=== PATIENT | female | born 1965 | race Caucasian/White ===

== ENCOUNTER 2017-02-08 01:16 | Emergency (ER) | payer SELFPAY ==
[2017-02-08 01:34] VITALS: BP 135/76
[2017-02-08] MEDS ORDERED: Alum Hydrox/Mag Hydrox/Simeth 30 ML, Lidocaine 2% 15 ML PO STA ×2 (01:47)
[2017-02-08] MEDS ORDERED: Sodium Chloride 0.9% 10 ML Syringe FLUSH PRN (01:49)
[2017-02-08] MEDS ORDERED: Pantoprazole 40 MG Tab.CR PO ONE (03:17)
[2017-02-08] MEDS ORDERED: Sucralfate Suspension 1 GM/10 ML Cup PO ONE (03:17)
--- NOTE | 2017-02-08 03:26 | EDM.PDOC ---
ED HPI GENERAL MEDICAL PROBLEM - General Chief Complaint: Chest Pain Stated Complaint: CHEST PAIN Time Seen by Provider: 02/08/17 01:21 - History of Present Illness INITIAL COMMENTS - FREE TEXT/NARRATIVE: 52-year-old female presents emergency room with chest pain. This pain has been on and off all of yesterday and into tonight patient went to bed and the pain awoke her. The pain is substernal does not seem to radiate is not associated with any nausea or vomiting no shortness of breath. Patient has been under quite a bit of stress recently. Family history is positive for heart problems in her father but patient is unsure of what age or what type of heart problems. The patient is treated for hypertension. She does not smoke and never has. Right Chest Pain Score (Numeric/FACES): 8 - Related Data Allergies Allergy/AdvReac Type Severity Reaction Status Date / Time acetaminophen Allergy Rash Verified 02/08/17 01:33 [From Darvocet-N] Penicillins Allergy Rash Verified 02/08/17 01:33 propoxyphene napsylate Allergy Rash Verified 02/08/17 01:33 [From Darvocet-N] Sulfa (Sulfonamide Allergy Rash Verified 02/08/17 01:33 Antibiotics) Home Meds: Home Meds Naproxen 500 mg PO ASDIRECTED PRN 04/15/14 [History] Lisinopril 10 mg PO DAILY 10/12/15 [History] Sucralfate [Carafate] 1 gm PO QIDACANDBED #20 tablet 02/08/17 [Rx] Past Medical History HEENT History: Reports: Impaired Vision Other HEENT History: Wears Cardiovascular History: Reports: Hypertension Respiratory History: Reports: Pneumonia, Recurrent 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: Musculoskeletal History: Reports: Back Pain, Chronic Neurological History: Reports: Migraines Psychiatric History: Reports: Depression - Past Surgical History GI Surgical History: Reports: Appendectomy Female Surgical History: Reports: Hysterectomy Social & Family History - Tobacco Use Smoking Status *Q: Never Smoker Second Hand Smoke Exposure: No - Caffeine Use Caffeine Use: Reports: Soda - Alcohol Use Days Per Week of Alcohol Use: 0 - Recreational Drug Use Recreational Drug Use: No ED ROS GENERAL - Review of Systems Review Of Systems: See Below Constitutional: Reports: No Symptoms HEENT: Reports: No Symptoms Respiratory: Denies: Shortness of Breath, Wheezing, Cough, Sputum Cardiovascular: Reports: Chest Pain. Denies: Dyspnea on Exertion, Palpitations Endocrine: Reports: No Symptoms GI/Abdominal: Reports: Abdominal Pain (She has some epigastric discomfort). Denies: Constipation, Diarrhea, Nausea, Vomiting : Reports: No Symptoms Neurological: Reports: No Symptoms ED EXAM, GENERAL - Physical Exam Exam: See Below Exam Limited By: No Limitations General Appearance: Alert, No Apparent Distress Head: Atraumatic, Normocephalic Neck: Normal Inspection, Supple, Non-Tender, Full Range of Motion. No: Lymphadenopathy (L), Lymphadenopathy (R) Respiratory/Chest: No Respiratory Distress, Lungs Clear, Normal Breath Sounds Cardiovascular: Regular Rate, Rhythm, No Edema, No Murmur GI/Abdominal: Normal Bowel Sounds, Soft, Other (History is significant epigastric discomfort no other upper abdominal tenderness noted with palpation no lower abdominal tenderness noted with palpation she has no rigidity rebound or guarding noted) Back Exam: Normal Inspection. No: CVA Tenderness (L), CVA Tenderness (R) Extremities: Normal Inspection, No Pedal Edema Course - Vital Signs Last Recorded V/S: Last Vital Signs Temp 36.1 C 02/08/17 01:30 Pulse 93 02/08/17 01:30 Resp 20 02/08/17 01:30 BP 135/76 02/08/17 01:30 Pulse Ox 99 02/08/17 01:30 - Orders/Labs/Meds Orders: Active Orders 24 hr Category Date Time Status Cardiac Monitoring [RC] . DIRECTED Care 02/08/17 01:47 Active EKG 12 Lead [EKG Documentation Completion] [RC] STAT Care 02/08/17 01:43 Active Oxygen Therapy [RC] ASDIRECTED Care 02/08/17 01:54 Active Sodium Chloride 0.9% [Saline Flush] Med 02/08/17 01:49 Active 10 ml FLUSH ASDIRECTED PRN Saline Lock Insert [OM.PC] Routine Oth 02/08/17 01:49 Ordered Medication Orders Sodium Chloride (Saline Flush) 10 ml FLUSH ASDIRECTED PRN PRN Reason: Keep Vein Open Last Admin: 02/08/17 02:00 Dose: 10 ml Labs: Laboratory Tests 02/08/17 02/08/17 02/08/17 Range/Units 01:25 01:25 01:25 WBC 7.42 (3.98-10.04) K/mm3 RBC 5.14 (3.98-5.22) M/mm3 Hgb 14.8 (11.2-15.7) gm/L Hct 44.0 (34.1-44.9) % MCV 85.6 (79.4-94.8) fl MCH 28.8 (25.6-32.2) pg MCHC 33.6 (32.2-35.5) g/dl RDW Std Deviation 41.4 (36.4-46.3) fL Plt Count 216 (182-369) K/mm3 MPV 11.9 (9.4-12.3) fl Neut % (Auto) 49.2 (34.0-71.1) % Lymph % (Auto) 39.5 (19.3-51.7) % [place] % (Auto) 8.9 (4.7-12.5) % Eos % (Auto) 1.9 (0.7-5.8) Baso % (Auto) 0.4 (0.1-1.2) % Neut # (Auto) 3.65 (1.56-6.13) K/mm3 Lymph # (Auto) 2.93 (1.18-3.74) K/mm3 [place] # (Auto) 0.66 H (0.24-0.36) K/mm3 Eos # (Auto) 0.14 (0.04-0.36) K/mm3 Baso # (Auto) 0.03 (0.01-0.08) K/mm3 PT 10.9 (8.0-13.0) SECONDS INR 1.00 Sodium (136-145) mEq/L Potassium (3.5-5.1) mEq/L Chloride (98-107) mEq/L Carbon Dioxide (21-32) mEq/L Anion Gap (5-15) BUN (7-18) mg/dL Creatinine (0.55-1.02) mg/dL Est Cr Clr Drug Dosing mL/min Estimated GFR (MDRD) (>60) mL/min BUN/Creatinine Ratio (14-18) Glucose (74-106) mg/dL Calcium (8.5-10.1) mg/dL Total Bilirubin (0.2-1.0) mg/dL AST (15-37) U/L ALT (14-59) U/L Alkaline Phosphatase (46-116) U/L Troponin I < 0.017 (0.00-0.056) ng/mL Total Protein (6.4-8.2) g/dl Albumin (3.4-5.0) g/dl Globulin gm/dL Albumin/Globulin Ratio (1-2) 02/08/17 Range/Units 01:25 WBC (3.98-10.04) K/mm3 RBC (3.98-5.22) M/mm3 Hgb (11.2-15.7) gm/L Hct (34.1-44.9) % MCV (79.4-94.8) fl MCH (25.6-32.2) pg MCHC (32.2-35.5) g/dl RDW Std Deviation (36.4-46.3) fL Plt Count (182-369) K/mm3 MPV (9.4-12.3) fl Neut % (Auto) (34.0-71.1) % Lymph % (Auto) (19.3-51.7) % [place] % (Auto) (4.7-12.5) % Eos % (Auto) (0.7-5.8) Baso % (Auto) (0.1-1.2) % Neut # (Auto) (1.56-6.13) K/mm3 Lymph # (Auto) (1.18-3.74) K/mm3 [place] # (Auto) (0.24-0.36) K/mm3 Eos # (Auto) (0.04-0.36) K/mm3 Baso # (Auto) (0.01-0.08) K/mm3 PT (8.0-13.0) SECONDS INR Sodium 144 (136-145) mEq/L Potassium 3.6 (3.5-5.1) mEq/L Chloride 109 H (98-107) mEq/L Carbon Dioxide 25 (21-32) mEq/L Anion Gap 13.6 (5-15) BUN 13 (7-18) mg/dL Creatinine 0.7 (0.55-1.02) mg/dL Est Cr Clr Drug Dosing 86.52 mL/min Estimated GFR (MDRD) > 60 (>60) mL/min BUN/Creatinine Ratio 18.6 H (14-18) Glucose 101 (74-106) mg/dL Calcium 9.2 (8.5-10.1) mg/dL Total Bilirubin 0.4 (0.2-1.0) mg/dL AST 11 L (15-37) U/L ALT 18 (14-59) U/L Alkaline Phosphatase 68 (46-116) U/L Troponin I (0.00-0.056) ng/mL Total Protein 8.2 (6.4-8.2) g/dl Albumin 4.2 (3.4-5.0) g/dl Globulin 4.0 gm/dL Albumin/Globulin Ratio 1.1 (1-2) Meds: Medications Generic Name Dose Route Start Last Admin Trade Name Freq PRN Reason Stop Dose Admin Sodium Chloride 10 ml 02/08/17 01:49 02/08/17 02:00 Saline Flush FLUSH 10 ml ASDIRECTED PRN Administration Keep Vein Open Discontinued Medications Generic Name Dose Route Start Last Admin Trade Name Freq PRN Reason Stop Dose Admin Al Hydroxide/Mg Hydroxide 30 0 ml 02/08/17 01:47 02/08/17 01:51 ml/ Lidocaine HCl 15 ml PO 02/08/17 01:48 45 ml ONETIME STA Administration Pantoprazole Sodium 40 mg 02/08/17 03:17 02/08/17 03:26 Protonix PO 02/08/17 03:18 40 mg ONETIME ONE Administration Sucralfate 1 gm 02/08/17 03:17 02/08/17 03:26 Carafate PO 02/08/17 03:18 1 gm ONETIME ONE Administration - Re-Assessments/Exams Free Text/Narrative Re-Assessment/Exam: 02/08/17 03:21 Laboratory evaluation thus far unremarkable including a negative troponin chemistries still pending. Offered further observation with a repeat troponin this is declined at this point the patient would really like to go home at this point. The patient did receive a GI cocktail shortly after initial examination and had good relief with this and eventually complete resolution of her discomfort. Patient will be discharged on Carafate and PPI therapy. Departure - Departure Time of Disposition: 03:22 Disposition: Home, Self-Care 01 Clinical Impression: Chest pain, Gastroesophageal reflux disease Prescriptions: Sucralfate [Carafate] 1 gm PO RADHADACANDBED #20 tablet Instructions: Nonspecific Chest Pain, [id number], Gastroesophageal Reflux Disease, Adult, [id number] Referrals: Priya Nunez DO [Primary Care Provider] - Forms: ED Department Discharge Additional Instructions: Return to the emergency room with any questions or problems. You have been started on Carafate you will take this for 5 days one tablet 4 times daily just before breakfast lunch and supper and at bedtime. Take your other medications at least an hour before or 2 hours after the Carafate. Try Pepcid, or famotidine, 20 mg twice a day. This is [id number]. Followup with your regular physician later this week for recheck. - My Orders Last 24 Hours: My Active Orders 02/08/17 01:43 EKG 12 Lead [EKG Documentation Completion] [RC] STAT 02/08/17 01:47 Cardiac Monitoring [RC] . DIRECTED 02/08/17 01:49 Sodium Chloride 0.9% [Saline Flush] 10 ml FLUSH ASDIRECTED PRN Saline Lock Insert [OM.PC] Routine 02/08/17 01:54 Oxygen Therapy [RC] ASDIRECTED - Assessment/Plan Last 24 Hours: My Active Orders 02/08/17 01:43 EKG 12 Lead [EKG Documentation Completion] [RC] STAT 02/08/17 01:47 Cardiac Monitoring [RC] . DIRECTED 02/08/17 01:49 Sodium Chloride 0.9% [Saline Flush] 10 ml FLUSH ASDIRECTED PRN Saline Lock Insert [OM.PC] Routine 02/08/17 01:54 Oxygen Therapy [RC] ASDIRECTED
== END 2017-02-08 03:38 | disposition home or self-care (01) ==
LOC: JD.ED 01:16
DX: K21.9 Gastro-esophageal reflux disease without esophagitis (principal); I10 Essential (primary) hypertension; G43.909 Migraine, unspecified, not intractable, without status migrainosus; F32.9 Major depressive disorder, single episode, unspecified; Z90.49 Acquired absence of other specified parts of digestive tract; Z90.710 Acquired absence of both cervix and uterus; Z79.899 Other long term (current) drug therapy; Z88.0 Allergy status to penicillin; Z88.2 Allergy status to sulfonamides; Z88.6 Allergy status to analgesic agent; Z88.8 Allergy status to other drugs, medicaments and biological substances; Z87.01 Personal history of pneumonia (recurrent)
CPT/HCPCS: 36415; 80053; 84484; 85025; 85610; 93005; 99285; A9270; J7050; 99284

== ENCOUNTER 2017-02-08 08:43 | Emergency (ER) | payer SELFPAY ==
--- NOTE | 2017-02-08 08:57 | EDM.PDOC ---
ED HPI GENERAL MEDICAL PROBLEM - General Chief Complaint: Chest Pain Stated Complaint: CHEST PAIN Time Seen by Provider: 02/08/17 08:56 Source of Information: Reports: Patient History Limitations: Reports: No Limitations - History of Present Illness INITIAL COMMENTS - FREE TEXT/NARRATIVE: 52-year-old female presents to the ED with a central chest pain radiating through to her intrscapular her scapular area. Also epigastric discomfort. No she woke from sleep at around 0100 hours this morning he did attend the ED where she had a complete workup including a negative cardiac workup. I suggested that perhaps she states her second set of troponins but she elected to go home. She did receive good results with GI cocktail according to doctor's notes the patient says she did not. She has not been able to sleep since going home. Congestive pressure in the central retrosternal chest. No trouble swallowing. No nausea or vomiting. Not really prone to GERD or reflux disease. No burping or belching to relieve the distress. She's not taking any other medications since going home. She is tearful and I UPSET at the present time. I think she strongly she has coronary disease. ECG done diet by triage nurse a sinus rhythm at 93 per minute with perhaps very minimal ST segment depression in V6 only. This appears to be baseline wandering. No signs of ischemia are evident. No she was discharged home on proton pump inhibitor from Prilosec 20 mg daily and sucralfate 1 g 4 times a day. She is not purchase these medications at Onset: Today Onset Date: 02/08/17 Onset Time: 01:00 Duration: Minutes: Location: Reports: Chest (Retrosternal mid chest and lower chest in the pit of the stomach. Pain radiates through to her in intrascapular area.) Quality: Reports: Ache, Burning, Pressure Severity: Moderate Improves with: Reports: None Worsens with: Reports: Other Context: Reports: Other (Awoke from sleep with this discomfort. Of note she had pizza before going to bed last night.). Denies: Activity (Lying down seems to make it worse.), Exercise, Lifting, Sick Contact, Trauma Associated Symptoms: Reports: Chest Pain. 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: Other (see below) Other Treatments HIDE SPREADER: none, but see prior ED record Chest Pain Score (Numeric/FACES): 10 - Related Data Allergies Allergy/AdvReac Type Severity Reaction Status Date / Time acetaminophen Allergy Rash Verified 02/08/17 08:46 [From Darvocet-N] Penicillins Allergy Rash Verified 02/08/17 08:46 propoxyphene napsylate Allergy Rash Verified 02/08/17 08:46 [From Darvocet-N] Sulfa (Sulfonamide Allergy Rash Verified 02/08/17 08:46 Antibiotics) Home Meds: Home Meds Naproxen 500 mg PO ASDIRECTED PRN 04/15/14 [History] Lisinopril 10 mg PO DAILY 10/12/15 [History] Dicyclomine [Bentyl] 20 mg PO Q6H PRN #5 tab 02/08/17 [Rx] Sucralfate [Carafate] 1 gm PO QIDACANDBED #20 tablet 02/08/17 [Rx] Past Medical History HEENT History: Reports: Impaired Vision Other HEENT History: Wears Cardiovascular History: Reports: Hypertension Respiratory History: Reports: Pneumonia, 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: Musculoskeletal History: Reports: Back Pain, Chronic Neurological History: Reports: Migraines Psychiatric History: Reports: Depression - Past Surgical History GI Surgical History: Reports: Appendectomy Female Surgical History: Reports: Hysterectomy Social & Family History - Tobacco Use Smoking Status *Q: Never Smoker Second Hand Smoke Exposure: No - Caffeine Use Caffeine Use: Reports: Soda - Alcohol Use Days Per Week of Alcohol Use: 0 - Recreational Drug Use Recreational Drug Use: No - Living Situation & Occupation Living situation: Reports: Single Occupation: Employed ED ROS GENERAL - Review of Systems Review Of Systems: See Below Constitutional: Reports: Fatigue. Denies: Fever, Chills, Malaise, Weakness HEENT: Reports: No Symptoms (From not sleeping all night.) Respiratory: Reports: No Symptoms. Denies: Shortness of Breath, Wheezing, Pleuritic Chest Pain, Cough, Hemoptysis, Other Cardiovascular: Reports: Chest Pain. Denies: Blood Pressure Problem (See history present illness), Claudication, Dyspnea on Exertion, Edema, Lightheadedness, Orthopnea, Palpitations Endocrine: Reports: No Symptoms GI/Abdominal: Reports: Abdominal Pain (Bit of the stomach epigastric discomfort. ). Denies: Constipation, Diarrhea, Decreased Appetite, Difficulty Swallowing : Reports: No Symptoms Musculoskeletal: Reports: No Symptoms Skin: Reports: No Symptoms Neurological: Reports: No Symptoms Psychiatric: Reports: No Symptoms Hematologic/Lymphatic: Reports: No Symptoms Immunologic: Reports: No Symptoms ED EXAM, GENERAL - Physical Exam Exam: See Below Exam Limited By: No Limitations General Appearance: Alert, Moderate Distress (Be careful at this time.) Eye Exam: Bilateral Eye: Normal Inspection (No jaundice) Throat/Mouth: Normal Inspection, Normal Lips, Normal Teeth, Normal Oropharynx Head: Atraumatic, Normocephalic Neck: Normal Inspection, Supple, Non-Tender, Full Range of Motion. No: Carotid Bruit, Lymphadenopathy (L), Lymphadenopathy (R), Thyromegaly Respiratory/Chest: Lungs Clear, Normal Breath Sounds (Mild tachypnea close to being anxious.), No Accessory Muscle Use, Chest Non-Tender, Respiratory Distress Cardiovascular: Normal Peripheral Pulses, Regular Rate, Rhythm, No Edema, No Gallop, No Murmur, No Rub Peripheral Pulses: 2+: Posterior Tibial (L), Posterior Tibial (R), Dorsalis Pedis (L), Dorsalis Pedis (R) GI/Abdominal: Normal Bowel Sounds, Soft, Non-Tender, No Organomegaly, No Distention, Other Back Exam: Normal Inspection, Full Range of Motion. No: CVA Tenderness (L), CVA Tenderness (R) Extremities: Normal Inspection, Normal Range of Motion, Non-Tender, No Pedal Edema, Normal Capillary Refill Neurological: Alert, Oriented, CN II-XII Intact, Normal Cognition, Normal Gait, No Motor/Sensory Deficits Psychiatric: Anxious, Tearful Skin Exam: Warm, Dry, Intact, Normal Color, No Rash EKG INTERPRETATION EKG Date: 02/08/17 Time: 08:45 Rhythm: NSR Rate (beats/min): 93 [place]: normal P-wave: present QRS: normal ST-T: normal QT: normal Comparison: no change Course - Vital Signs Last Recorded V/S: Last Vital Signs Temp 36.6 C 02/08/17 08:47 Pulse 87 02/08/17 11:04 Resp 16 02/08/17 11:04 BP 109/71 02/08/17 11:04 Pulse Ox 100 02/08/17 11:04 - Orders/Labs/Meds Orders: Active Orders 24 hr Category Date Time Status EKG 12 Lead [EKG Documentation Completion] [RC] STAT Care 02/08/17 08:54 Active Labs: Laboratory Tests 02/08/17 02/08/17 02/08/17 Range/Units 08:50 08:50 08:50 WBC 7.45 (3.98-10.04) K/mm3 RBC 5.26 H (3.98-5.22) M/mm3 Hgb 15.1 (11.2-15.7) gm/L Hct 45.1 H (34.1-44.9) % MCV 85.7 (79.4-94.8) fl MCH 28.7 (25.6-32.2) pg MCHC 33.5 (32.2-35.5) g/dl RDW Std Deviation 41.6 (36.4-46.3) fL Plt Count 222 (182-369) K/mm3 MPV 12.2 (9.4-12.3) fl Neutrophils % (Manual) 56 (40-60) % Band Neutrophils % 2 (0-10) % Lymphocytes % (Manual) 34 (20-40) % Atypical Lymphs % 0 % Monocytes % (Manual) 7 (2-10) % Eosinophils % (Manual) 1 (0.7-5.8) % Basophils % (Manual) 0 L (0.1-1.2) Platelet Estimate Adequate RBC Morph Comment Normal Sodium 144 (136-145) mEq/L Potassium 3.7 (3.5-5.1) mEq/L Chloride 109 H (98-107) mEq/L Carbon Dioxide 25 (21-32) mEq/L Anion Gap 13.7 (5-15) BUN 13 (7-18) mg/dL Creatinine 0.7 (0.55-1.02) mg/dL Est Cr Clr Drug Dosing TNP Estimated GFR (MDRD) > 60 (>60) mL/min BUN/Creatinine Ratio 18.6 H (14-18) Glucose 102 (74-106) mg/dL Calcium 9.4 (8.5-10.1) mg/dL Total Bilirubin 0.9 (0.2-1.0) mg/dL AST 10 L (15-37) U/L ALT 18 (14-59) U/L Alkaline Phosphatase 67 (46-116) U/L CK-MB (CK-2) < 0.5 (0-3.6) ng/ml Troponin I < 0.017 (0.00-0.056) ng/mL Total Protein 8.2 (6.4-8.2) g/dl Albumin 4.3 (3.4-5.0) g/dl Globulin 3.9 gm/dL Albumin/Globulin Ratio 1.1 (1-2) Amylase 25 (25-115) U/L H. pylori IgG Antibody Negative (NEGATIVE) Meds: Medications Discontinued Medications Generic Name Dose Route Start Last Admin Trade Name Freq PRN Reason Stop Dose Admin Al Hydroxide/Mg Hydroxide 30 0 ml 02/08/17 09:03 02/08/17 09:18 ml/ Lidocaine HCl 15 ml PO 02/08/17 09:04 45 ml ONETIME ONE Administration Hydromorphone HCl 0.5 mg 02/08/17 09:02 02/08/17 09:20 Dilaudid IVPUSH 02/08/17 09:03 0.5 mg ONETIME ONE Administration Hyoscyamine 0.125 mg 02/08/17 09:04 02/08/17 09:18 Hyomax-Sl SL 02/08/17 09:05 0.125 mg ONETIME ONE Administration Dextrose/Sodium Chloride 1,000 mls @ 999 mls/hr 02/08/17 09:15 02/08/17 09:24 Dextrose 5%-Normal Saline IV 999 mls/hr ASDIRECTED LADONNA Administration Metoclopramide HCl 7.5 mg 02/08/17 09:02 02/08/17 09:19 Reglan IVPUSH 02/08/17 09:03 7.5 mg ONETIME ONE Administration - Radiology Interpretation Free Text/Narrative:: 52-year-old female presents to the ED for the second time this morning with persistent epigastric retrosternal chest pain radiate through to her mid back. No true odynophagia. She was worked up earlier this morning for cardiac illness and none was found. Normal troponin at that time. She is a family history of coronary disease and quite anxious that this is what is going on. ECG however shows no signs of ischemia. Lungs are clear heart was sinus. Pain is most likely that of esophageal or hiatal hernia origin. We'll get repeat the GI cocktail with Levsin is 0.125 mg sublingual. IV will be D5 normal saline at 150 mils per hour. Given Dilaudid 0.5 mg IV with Reglan 7.5 mg IV for pain relief. - Re-Assessments/Exams Free Text/Narrative Re-Assessment/Exam: 02/08/17 09:35: Two-view chest x-ray is within normal limits. She reports marked relief of the chest pain after the GI cocktail and the eye and IV analgesia. 02/08/17 10:34 labs are back showing a white count of 7.45 with 56% neutrophils and 2% band cells. Hemoglobin is 15.1 hematocrit of 45.1. Platelets are normal at 222,000. Sodium is 144 potassium is 3.7 chloride 109 bicarbonate 25 anion gap is 13.7 H. pylori was negative. Troponin and CK-MB fractions are both normal. Serum amylase is normal at 25. History suggests gastroesophageal reflux disease possible hiatal hernia. We'll send her home with Bentyl 20 mg every 6 hours for 5 doses. She is to use antacids as needed such as Maalox Mylanta or TUMS. She could certainly fill the prescription for sucralfate as Dr. Green had ordered. Start proton pump inhibitor Prilosec once daily for the next 12 days. He uses Zantac 150 mg twice daily for the next 3 days until the pain settles down completely. Was pain-free at the time of discharge. Departure - Departure Time of Disposition: 10:35 Disposition: Home, Self-Care 01 Condition: fair Clinical Impression: Non-cardiac chest pain, Gastroesophageal reflux disease with esophagitis Prescriptions: Dicyclomine [Bentyl] 20 mg PO Q6H PRN #5 tab PRN Reason: esophageal spasm Instructions: Nonspecific Chest Pain Referrals: Priya Nunez DO [Primary Care Provider] - Forms: ED Department Discharge Additional Instructions: Evaluation and mentioned this morning in regards to development of central chest pain rating to slightly to her mid back. Strong burning component to the pain. Concern for underlying heart disease noted. ECG normal chest x-ray x2 view normal markers for infection and inflammation and heart attack were all negative. H. pylori was also negative which is a bacterial infection of the stomach that can cause reflux disease. Diagnosis is esophagitis likely secondary to reflux during the night. This has resulted in inflammation of the lining the food pipe and will cause intermittent spasm of the food pipe and pain off-and-on for the next 3-4 days. Suggest using Zantac 150 mg twice daily for 5 days and also start to Prilosec 20 mg once daily for the next 10 days. May also use the sucralfate or antacids such as Maalox or Mylanta as needed for discomfort. if the pain is significantly did was when you arrive this morning may use Bentyl 20 mg tablet by mouth which can be taken every 6 hours. 5 tablets of this medicine were provided. Followup if any further problems occur. - My Orders Last 24 Hours: My Active Orders 02/08/17 08:54 EKG 12 Lead [EKG Documentation Completion] [RC] STAT - Assessment/Plan Last 24 Hours: My Active Orders 02/08/17 08:54 EKG 12 Lead [EKG Documentation Completion] [RC] STAT
[2017-02-08] MEDS ORDERED: HYDROmorphone 0.5 MG/0.5 ML Syringe IVPUSH ONE (09:02)
[2017-02-08] MEDS ORDERED: Metoclopramide 10 MG/2 ML SDV IVPUSH ONE (09:02)
[2017-02-08] MEDS ORDERED: Alum Hydrox/Mag Hydrox/Simeth 30 ML, Lidocaine 2% 15 ML PO ONE ×2 (09:03)
[2017-02-08] MEDS ORDERED: Hyoscyamine 0.125 MG Tab.SL SL ONE (09:04)
[2017-02-08] MEDS ORDERED: Dextrose 5%-0.9% NaCl 1,000 ML IV SCH (09:15)
[2017-02-08 11:05] VITALS: BP 109/71
--- NOTE | 2017-02-08 12:03 | CR ---
Chest: Two views of the chest were obtained. Comparison: No previous chest x-ray. Heart size and mediastinum are normal. Lungs are clear. Bony structures are within normal limits. Impression: 1. Nothing acute is identified on two-view chest x-ray. Diagnostic code #1
== END 2017-02-08 11:12 | disposition home or self-care (01) ==
LOC: JD.ED 08:43
DX: K21.0 Gastro-esophageal reflux disease with esophagitis (principal); I10 Essential (primary) hypertension; G43.909 Migraine, unspecified, not intractable, without status migrainosus; F32.9 Major depressive disorder, single episode, unspecified; Z90.49 Acquired absence of other specified parts of digestive tract; Z90.710 Acquired absence of both cervix and uterus; Z79.899 Other long term (current) drug therapy; Z88.2 Allergy status to sulfonamides; Z88.8 Allergy status to other drugs, medicaments and biological substances; Z88.0 Allergy status to penicillin; Z88.6 Allergy status to analgesic agent
CPT/HCPCS: 36415; 71020; 80053; 82150; 82553; 84484; 85025; 86677; 93005; 96361; 96374; 96375; 99285; A9270; J1170; J2765; J7042

== ENCOUNTER 2017-07-16 17:03 | Emergency (ER) | payer MEDICAID ==
[2017-07-16 17:28] VITALS: BP 137/82
[2017-07-16] MEDS ORDERED: Ketorolac 60 MG/2 ML SDV IM ONE (17:56)
--- NOTE | 2017-07-16 18:04 | EDM.PDOC ---
ED HPI GENERAL MEDICAL PROBLEM - General Chief Complaint: Back Pain or Injury Stated Complaint: Back pain Time Seen by Provider: 07/16/17 17:40 Source of Information: Reports: Patient, RN Notes Reviewed History Limitations: Reports: No Limitations - History of Present Illness INITIAL COMMENTS - FREE TEXT/NARRATIVE: 52 year old female presents to the ER today with complaints of 24 hour history of low back pain with radiation down her left leg. 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 She has a history of low back pain but says it was much worse last evening. The pain is across her low back and is worse on the left side. She says the pain is so severe that she can "hardly walk." She ambulated into the ED. 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 No numbness, tingling or weakness in extremities. No loss of bowel or bladder function. She admits to foul smelling urine but denies dysuria, frequency or urgency. Treatments APARTMENT HOUSE MANAGER: Reports: Other (see below) Other Treatments APARTMENT HOUSE MANAGER: Icing Left Lower Back Pain Score (Numeric/FACES): 10 - Related Data Allergies Allergy/AdvReac Type Severity Reaction Status Date / Time acetaminophen Allergy Rash Verified 02/08/17 08:46 [From Darvocet-N] Penicillins Allergy Rash Verified 02/08/17 08:46 propoxyphene napsylate Allergy Rash Verified 02/08/17 08:46 [From Darvocet-N] Sulfa (Sulfonamide Allergy Rash Verified 02/08/17 08:46 Antibiotics) Home Meds: Home Meds Naproxen 500 mg PO ASDIRECTED PRN 04/15/14 [History] Lisinopril 10 mg PO DAILY 10/12/15 [History] Ciprofloxacin [IJD: Ciprofloxacin HCl] 500 mg PO BID #10 tab 07/16/17 [Rx] Naproxen 500 mg PO BID #30 tablet 07/16/17 [Rx] Orphenadrine [Norflex] 100 mg PO BID #15 tab.er 07/16/17 [Rx] Past Medical History HEENT History: Reports: Impaired Vision Other HEENT History: Wears Cardiovascular History: Reports: Hypertension Respiratory History: Reports: Pneumonia, Recurrent 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: Musculoskeletal History: Reports: Back Pain, Chronic Neurological History: Reports: Migraines Psychiatric History: Reports: Depression - Past Surgical History GI Surgical History: Reports: Appendectomy Female Surgical History: Reports: Hysterectomy Social & Family History - Tobacco Use Smoking Status *Q: Never Smoker Second Hand Smoke Exposure: No - Caffeine Use Caffeine Use: Reports: Soda - Alcohol Use Days Per Week of Alcohol Use: 0 - Recreational Drug Use Recreational Drug Use: No - Living Situation & Occupation Living situation: Reports: Single Occupation: Employed ED ROS GENERAL - Review of Systems Review Of Systems: See Below Constitutional: Reports: No Symptoms. Denies: Fever, Chills Respiratory: Reports: No Symptoms Cardiovascular: Reports: No Symptoms : Reports: Other (foul urine odor). Denies: Dysuria, Flank Pain, Frequency Musculoskeletal: Reports: Back Pain, Muscle Pain Skin: Reports: No Symptoms Neurological: Reports: No Symptoms. Denies: Numbness, Tingling, Weakness ED EXAM,LOWER BACK PAIN/INJURY - Physical Exam Exam: See Below Exam Limited By: No Limitations General Appearance: Alert, WD/WN, No Apparent Distress Respiratory/Chest: No Respiratory Distress, Lungs Clear, Normal Breath Sounds Cardiovascular: Regular Rate, Rhythm Back Exam: Normal Inspection, Full Range of Motion, Muscle Spasm (low back ), Other (Patient is able to sit forward in bed with no difficulty. She has exagerated pain response to light palpation of her back. She has pain over her left SI joint. She has some mild muscle spasms. ). No: CVA Tenderness (L), CVA Tenderness (R), Vertebral Tenderness Extremities: Normal Inspection, Normal Range of Motion Neurological: Alert, Normal Dorsiflexion, Normal Plantar Flexion, No Motor/ Sensory Deficits, Straight Leg Raise (L). No: Straight Leg Raise (R), Saddle Anesthesia Skin Exam: Warm, Dry, Intact Course - Vital Signs Last Recorded V/S: Last Vital Signs Temp 98.0 F 07/16/17 17:26 Pulse 98 07/16/17 17:26 Resp 21 H 07/16/17 17:26 BP 137/82 07/16/17 17:26 Pulse Ox 97 07/16/17 17:26 - Orders/Labs/Meds Labs: Laboratory Tests 07/16/17 Range/Units 18:21 Urine Color Light yellow (Yellow) Urine Appearance Slt cloudy H (Clear) Urine pH 7.0 (5.0-8.0) Ur Specific [place] 1.025 (1.005-1.030) Urine Protein Negative (Negative) Urine Glucose (UA) Negative (Negative) Urine Ketones Negative (Negative) Urine Occult Blood 1+ H (Negative) Urine Nitrite Positive H (Negative) Urine Bilirubin Negative (Negative) Urine Urobilinogen 0.2 (0.2-1.0) Ur Leukocyte Esterase Negative (Negative) Urine RBC 0-5 (0-5) /hpf Urine WBC 10-20 H (0-5) /hpf Ur Epithelial Cells 5-10 H (0-5) /hpf Urine Bacteria Many H (FEW) /hpf Urine Mucus Not seen (FEW) /hpf Meds: Medications Discontinued Medications Generic Name Dose Route Start Last Admin Trade Name Freq PRN Reason Stop Dose Admin Ketorolac Tromethamine 60 mg 07/16/17 17:56 07/16/17 18:10 Toradol IM 07/16/17 17:57 60 mg ONETIME ONE Administration - Re-Assessments/Exams Free Text/Narrative Re-Assessment/Exam: Low back exam consistent with sciatica. Toradol 60mg IM given for pain. Patient had significant improvement in pain. UA came back positive for infection. Sent for culture. Due to complaints of back pain, will treat with 5 days of Cipro for possible early pyelonephritis. Patient notified of results of UA. Will treat for both sciatica, low back strain , and UTI. Discharge instructions as documented. Departure - Departure Time of Disposition: 18:42 Disposition: Home, Self-Care 01 Condition: Good Clinical Impression: Muscle spasm of back UTI (urinary tract infection) Qualifiers: Urinary tract infection type: acute cystitis Hematuria presence: without hematuria Qualified Code(s): N30.00 - Acute cystitis without hematuria Low back strain Qualifiers: Encounter type: initial encounter Qualified Code(s): S39.012A - Strain of muscle, fascia and tendon of lower back, initial encounter Lumbago with sciatica, left side Qualifiers: Chronicity: unspecified Back pain laterality: left Qualified Code(s): M54.42 - Lumbago with sciatica, left side - Discharge Information Prescriptions: Ciprofloxacin [IJD: Ciprofloxacin HCl] 500 mg PO BID #10 tab Naproxen 500 mg PO BID #30 tablet Orphenadrine [Norflex] 100 mg PO BID #15 tab.er Instructions: Urinary Tract Infection, Adult, [id number] Referrals: Priya Nunez, DO [Primary Care Provider] - Forms: ED Department Discharge, ED Return to Work/School Form Additional Instructions: Low back strain 1. Rest and ice low back 2. Heating pad for muscle spasms 3. Avoid heavy lifting or prolonged bending until symptoms improve 4. Naproxyn 500mg twice a day until symptoms resolve then take as needed 5. Orphandrine every 12 hours as needed for muscle spasm 6. Tylenol 650mg every 4-6 hours as needed for pain not relieved by above medications Bladder infection 1. Drink plenty of fluids to stay well hydrated 2. Ciprofloxacin 500mg twice a day for 5 days 3. Follow-up with your primary care provider next week for recheck Return to ER with new or worsening symptoms
== END 2017-07-16 19:16 | disposition home or self-care (01) ==
LOC: JD.ED 17:03
DX: S39.012A Strain of muscle, fascia and tendon of lower back, initial encounter (principal); M54.42 Lumbago with sciatica, left side; N30.00 Acute cystitis without hematuria; M62.830 Muscle spasm of back; Z79.899 Other long term (current) drug therapy; Z88.0 Allergy status to penicillin; Z88.2 Allergy status to sulfonamides; Z88.6 Allergy status to analgesic agent; X50.0XXA Overexertion from strenuous movement or load, initial encounter
CPT/HCPCS: 81001; 96372; 99283; J1885

== ENCOUNTER 2017-07-25 11:55 | Emergency (ER) | payer MEDICAID ==
[2017-07-25 12:09] VITALS: BP 123/77
[2017-07-25] MEDS ORDERED: Ondansetron 4 MG Tab.DIS PO ONE (12:29)
[2017-07-25] MEDS ORDERED: Ketorolac 60 MG/2 ML SDV IM ONE (12:29)
[2017-07-25] MEDS ORDERED: diphenhydrAMINE 50 MG/ML SDV IM ONE (12:30)
[2017-07-25] MEDS ORDERED: Haloperidol Lactate 5 MG/ML SDV IM ONE (12:30)
--- NOTE | 2017-07-25 12:35 | EDM.PDOC ---
ED HPI GENERAL MEDICAL PROBLEM - General Chief Complaint: Headache Stated Complaint: MIGRAIN Time Seen by Provider: 07/25/17 12:17 Source of Information: Reports: Patient History Limitations: Reports: No Limitations - History of Present Illness INITIAL COMMENTS - FREE TEXT/NARRATIVE: Patient is a 52-year-old female who presents to the ED complaining of migraine headache for the past 5 days. Headache gradually started with increasing in severity. States initially started on left-sided of her forehead and has not radiated to the right. Described as a throbbing sharp sensation that waxes and wanes in intensity. Headache is constant mild in nature currently. She does report some photophobia, phonophobia, and intermittent nausea. Headache today following similar pattern from previous episodes. Denies any recent trauma, fever, vision changes, neck stiffness, chest pain, shortness of breath, nausea/ vomiting, abdominal pain, numbness or tingling to extremities, rash, or any additional complaints. She does report being under more stress recently. 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 Right Headache Pain Score (Numeric/FACES): 10 - Related Data Allergies Allergy/AdvReac Type Severity Reaction Status Date / Time acetaminophen Allergy Rash Verified 07/25/17 12:03 [From Darvocet-N] Penicillins Allergy Rash Verified 07/25/17 12:03 propoxyphene napsylate Allergy Rash Verified 07/25/17 12:03 [From Darvocet-N] Sulfa (Sulfonamide Allergy Rash Verified 07/25/17 12:03 Antibiotics) Home Meds: Home Meds Lisinopril 10 mg PO DAILY 10/12/15 [History] Naproxen 500 mg PO BID #30 tablet 07/16/17 [Rx] Past Medical History HEENT History: Reports: Impaired Vision Other HEENT History: Wears Cardiovascular History: Reports: Hypertension Respiratory History: Reports: Pneumonia, Recurrent 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: Musculoskeletal History: Reports: Back Pain, Chronic Neurological History: Reports: Migraines Psychiatric History: Reports: Depression - Past Surgical History GI Surgical History: Reports: Appendectomy Female Surgical History: Reports: Hysterectomy Social & Family History - Family History Family Medical History: Noncontributory - Tobacco Use Smoking Status *Q: Never Smoker Second Hand Smoke Exposure: No - Caffeine Use Caffeine Use: Reports: Soda - Alcohol Use Days Per Week of Alcohol Use: 0 - Recreational Drug Use Recreational Drug Use: No - Living Situation & Occupation Living situation: Reports: Single Occupation: Employed ED ROS GENERAL - Review of Systems Review Of Systems: ROS reveals no pertinent complaints other than HPI. - Physical Exam Exam: See Below Exam Limited By: No Limitations General Appearance: Alert, WD/WN, No Apparent Distress Eye Exam: Bilateral Eye: EOMI, PERRL Ears: Hearing Grossly Normal Nose: Normal Inspection Throat/Mouth: Normal Inspection, Normal Oropharynx, Normal Voice, No Airway Compromise Head Exam: Atraumatic, Normocephalic Neck: Normal Inspection, Supple, Non-Tender, Full Range of Motion Respiratory/Chest: No Respiratory Distress, Lungs Clear, Normal Breath Sounds, No Accessory Muscle Use, Chest Non-Tender Cardiovascular: Normal Peripheral Pulses, Regular Rate, Rhythm GI/Abdominal: Normal Bowel Sounds, Soft, Non-Tender, No Organomegaly, No Distention Neuro Exam (Abbreviated): Alert, Oriented, CN II-XII Intact, Normal Cognition, Normal Gait, No Motor/Sensory Deficits, Other (Cerebellar function intact: Finger-nose and rapid alternating movements. No weakness discrepancies to the upper and lower extremities. No sensorimotor deficits.) Extremities: Normal Inspection, Normal Range of Motion, Non-Tender, No Pedal Edema, Normal Capillary Refill Psychiatric: Normal Affect, Normal Mood Skin Exam: Warm, Dry, Intact, Normal Color Course - Vital Signs Last Recorded V/S: Last Vital Signs Temp 97.7 F 07/25/17 12:05 Pulse 74 07/25/17 12:05 Resp 14 07/25/17 12:05 BP 123/77 07/25/17 12:05 Pulse Ox 100 07/25/17 12:05 - Orders/Labs/Meds Meds: Medications Discontinued Medications Generic Name Dose Route Start Last Admin Trade Name Freq PRN Reason Stop Dose Admin Diphenhydramine HCl 50 mg 07/25/17 12:30 07/25/17 12:40 Benadryl IM 07/25/17 12:31 50 mg ONETIME ONE Administration Haloperidol Lactate 5 mg 07/25/17 12:30 07/25/17 12:42 Haldol IM 07/25/17 12:31 5 mg ONETIME ONE Administration Ketorolac Tromethamine 30 mg 07/25/17 12:29 07/25/17 12:46 Toradol IM 07/25/17 12:30 30 mg ONETIME ONE Administration Ondansetron HCl 4 mg 07/25/17 12:29 07/25/17 12:39 Zofran Odt PO 07/25/17 12:30 4 mg ONETIME ONE Administration - Re-Assessments/Exams Free Text/Narrative Re-Assessment/Exam: Ordered Haldol 5 mg IM, Toradol 30 mg IM, Zofran 4 mg by mouth, and Benadryl 50 mg IM. 07/25/17 13:17 Reassessment, headache has resolved. She is ready to be discharged home. Discharge instructions as documented. Departure - Departure Time of Disposition: 13:18 Disposition: Home, Self-Care 01 Condition: Good Clinical Impression: Headache Qualifiers: Headache type: unspecified Headache chronicity pattern: episodic headache Intractability: not intractable Qualified Code(s): R51 - Headache - Discharge Information Instructions: General Headache Without Cause Referrals: Priya Nunez, [Primary Care Provider] - Forms: ED Department Discharge, ED Return to Work/School Form Additional Instructions: As discussed go Home find a dark room with no distractions to sleep. Continue to push the fluids. Take ibuprofen 600 mg every 6 hours as needed for headache. Take with food. Follow-up with her PCP this coming week as needed. Return to the ED for any new or worsening symptoms.
== END 2017-07-25 13:50 | disposition home or self-care (01) ==
LOC: JD.ED 11:55
DX: R51 Headache (principal); I10 Essential (primary) hypertension; Z88.6 Allergy status to analgesic agent; Z88.0 Allergy status to penicillin; Z88.2 Allergy status to sulfonamides; Z79.899 Other long term (current) drug therapy
CPT/HCPCS: 96372; 99284; A9270; J1200; J1630; J1885

== ENCOUNTER 2017-09-05 13:46 | Emergency (ER) | payer MEDICAID, OTHER ==
[2017-09-05 14:29] VITALS: BP 130/85
[2017-09-05] MEDS ORDERED: Sodium Chloride 0.9% 10 ML Syringe FLUSH PRN (14:50)
[2017-09-05] MEDS ORDERED: diphenhydrAMINE 50 MG/ML SDV IVPUSH ONE (14:51)
[2017-09-05] MEDS ORDERED: Ketorolac 30 MG/ML SDV IVPUSH ONE (14:51)
[2017-09-05] MEDS ORDERED: Prochlorperazine 10 MG/2 ML SDV IVPUSH ONE (14:51)
[2017-09-05] MEDS ORDERED: Sodium Chloride 0.9% 1,000 ML IV SCH (15:00)
--- NOTE | 2017-09-05 16:46 | EDM.PDOC ---
ED HPI GENERAL MEDICAL PROBLEM - General Chief Complaint: Gastrointestinal Problem Stated Complaint: BODY ACHES Time Seen by Provider: 09/05/17 14:33 Source of Information: Reports: Patient, Family History Limitations: Reports: No Limitations - History of Present Illness INITIAL COMMENTS - FREE TEXT/NARRATIVE: The patient presents with a headache, abdominal pain, nausea and vomiting. This started last night. She has a history of migraines. She denies fever, chills, cough, chest pain, numbness or weakness. She has no diarrhea with the abdominal pain. She has no dysuria. Onset: Gradual Duration: Day(s): Location: Reports: Head, Abdomen Quality: Reports: Sharp Severity: Severe Improves with: Reports: None Worsens with: Reports: None Associated Symptoms: Reports: Headaches, Nausea/Vomiting. Denies: Chest Pain, Fever/Chills, Shortness of Breath Head Pain Score (Numeric/FACES): 10 - Related Data Allergies Allergy/AdvReac Type Severity Reaction Status Date / Time acetaminophen Allergy Rash Verified 09/05/17 14:25 [From Darvocet-N] Penicillins Allergy Rash Verified 09/05/17 14:25 propoxyphene napsylate Allergy Rash Verified 09/05/17 14:25 [From Darvocet-N] Sulfa (Sulfonamide Allergy Rash Verified 09/05/17 14:25 Antibiotics) sulfamethoxazole Allergy Rash Verified 09/05/17 14:25 [From Bactrim] trimethoprim [From Bactrim] Allergy Rash Verified 09/05/17 14:25 Home Meds: Home Meds Lisinopril 10 mg PO DAILY 10/12/15 [History] Naproxen 500 mg PO BID #30 tablet 07/16/17 [Rx] Past Medical History HEENT History: Reports: Impaired Vision Other HEENT History: Wears Cardiovascular History: Reports: Hypertension Respiratory History: Reports: Pneumonia, Recurrent 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: Musculoskeletal History: Reports: Back Pain, Chronic Neurological History: Reports: Migraines Psychiatric History: Reports: Depression - Past Surgical History GI Surgical History: Reports: Appendectomy Female Surgical History: Reports: Hysterectomy Social & Family History - Family History Family Medical History: Noncontributory - Tobacco Use Smoking Status *Q: Never Smoker Second Hand Smoke Exposure: No - Caffeine Use Caffeine Use: Reports: Soda - Alcohol Use Days Per Week of Alcohol Use: 0 - Recreational Drug Use Recreational Drug Use: No - Living Situation & Occupation Living situation: Reports: Single Occupation: Employed ED ROS GENERAL - Review of Systems Review Of Systems: See Below Constitutional: Reports: No Symptoms HEENT: Reports: No Symptoms Respiratory: Reports: No Symptoms Cardiovascular: Reports: No Symptoms Endocrine: Reports: No Symptoms GI/Abdominal: Reports: Abdominal Pain, Nausea, Vomiting. Denies: Diarrhea : Reports: No Symptoms Musculoskeletal: Reports: No Symptoms ED EXAM, GI/ABD - Physical Exam Exam: See Below Exam Limited By: No Limitations General Appearance: Alert, No Apparent Distress Ears: Normal External Exam Nose: Normal Inspection Head: Atraumatic, Normocephalic Neck: Normal Inspection Respiratory/Chest: No Respiratory Distress, Lungs Clear, Normal Breath Sounds Cardiovascular: Regular Rate, Rhythm, No Edema, No Murmur GI/Abdominal Exam: Soft, No Organomegaly, No Mass, Tender (Mild generalized tenderness) Course - Vital Signs Last Recorded V/S: Last Vital Signs Temp 98.3 F 09/05/17 14:25 Pulse 93 09/05/17 14:25 Resp 18 09/05/17 14:25 BP 130/85 09/05/17 14:25 Pulse Ox 98 09/05/17 14:25 - Orders/Labs/Meds Orders: Active Orders 24 hr Category Date Time Status Cardiac Monitoring [RC] . DIRECTED Care 09/05/17 14:50 Active Peripheral IV Care [RC] . DIRECTED Care 09/05/17 14:50 Active Sodium Chloride 0.9% [Normal Saline] 1,000 ml Med 09/05/17 15:00 Active IV ASDIRECTED Sodium Chloride 0.9% [Saline Flush] Med 09/05/17 14:50 Active 10 ml FLUSH ASDIRECTED PRN Peripheral IV Insertion Adult [OM.PC] Stat Oth 09/05/17 14:50 Ordered Medication Orders Sodium Chloride (Normal Saline) 1,000 mls @ 125 mls/hr IV ASDIRECTED LADONNA Last Admin: 09/05/17 15:11 Dose: 125 mls/hr Sodium Chloride (Saline Flush) 10 ml FLUSH ASDIRECTED PRN PRN Reason: Keep Vein Open Last Admin: 09/05/17 15:12 Dose: 10 ml Labs: Laboratory Tests 09/05/17 09/05/17 09/05/17 Range/Units 15:15 15:15 15:51 WBC 3.86 L (3.98-10.04) K/mm3 RBC 4.96 (3.98-5.22) M/mm3 Hgb 14.0 (11.2-15.7) gm/L Hct 41.6 (34.1-44.9) % MCV 83.9 (79.4-94.8) fl MCH 28.2 (25.6-32.2) pg MCHC 33.7 (32.2-35.5) g/dl RDW Std Deviation 43.2 (36.4-46.3) fL Plt Count 148 L (182-369) K/mm3 MPV 12.1 (9.4-12.3) fl Neut % (Auto) 59.6 (34.0-71.1) % Lymph % (Auto) 22.8 (19.3-51.7) % Martin % (Auto) 16.3 H (4.7-12.5) % Eos % (Auto) 0.5 L (0.7-5.8) Baso % (Auto) 0.8 (0.1-1.2) % Neut # (Auto) 2.30 (1.56-6.13) K/mm3 Lymph # (Auto) 0.88 L (1.18-3.74) K/mm3 Martin # (Auto) 0.63 H (0.24-0.36) K/mm3 Eos # (Auto) 0.02 L (0.04-0.36) K/mm3 Baso # (Auto) 0.03 (0.01-0.08) K/mm3 Manual Slide Review Normal smear Sodium 141 (136-145) mEq/L Potassium 3.7 (3.5-5.1) mEq/L Chloride 105 (98-107) mEq/L Carbon Dioxide 26 (21-32) mEq/L Anion Gap 13.7 (5-15) BUN 12 (7-18) mg/dL Creatinine 0.7 (0.55-1.02) mg/dL Est Cr Clr Drug Dosing 86.52 mL/min Estimated GFR (MDRD) > 60 (>60) mL/min BUN/Creatinine Ratio 17.1 (14-18) Glucose 87 (74-106) mg/dL Calcium 8.8 (8.5-10.1) mg/dL Total Bilirubin 0.5 (0.2-1.0) mg/dL AST 13 L (15-37) U/L ALT 18 (14-59) U/L Alkaline Phosphatase 55 (46-116) U/L Total Protein 7.9 (6.4-8.2) g/dl Albumin 4.2 (3.4-5.0) g/dl Globulin 3.7 gm/dL Albumin/Globulin Ratio 1.1 (1-2) Lipase 80 (73-393) U/L Urine Color Yellow (Yellow) Urine Appearance Slt cloudy H (Clear) Urine pH 5.5 (5.0-8.0) Ur Specific [place] > or = 1.030 (1.005-1.030) Urine Protein Trace H (Negative) Urine Glucose (UA) Negative (Negative) Urine Ketones 3+ H (Negative) Urine Occult Blood 3+ H (Negative) Urine Nitrite Negative (Negative) Urine Bilirubin Negative (Negative) Urine Urobilinogen 0.2 (0.2-1.0) Ur Leukocyte Esterase Negative (Negative) Urine RBC 5-10 H (0-5) /hpf Urine WBC 0-5 (0-5) /hpf Ur Epithelial Cells 0-5 (0-5) /hpf Urine Bacteria Many H (FEW) /hpf Urine Mucus Few (FEW) /hpf Meds: Medications Generic Name Dose Route Start Last Admin Trade Name Ramy PRN Reason Stop Dose Admin Sodium Chloride 1,000 mls @ 125 mls/hr 09/05/17 15:00 09/05/17 15:11 Normal Saline IV 125 mls/hr ASDIRECTED LADONNA Administration Sodium Chloride 10 ml 09/05/17 14:50 09/05/17 15:12 Saline Flush FLUSH 10 ml ASDIRECTED PRN Administration Keep Vein Open Discontinued Medications Generic Name Dose Route Start Last Admin Trade Name Freq PRN Reason Stop Dose Admin Diphenhydramine HCl 50 mg 09/05/17 14:51 09/05/17 15:15 Benadryl IVPUSH 09/05/17 14:52 50 mg ONETIME ONE Administration Ketorolac Tromethamine 30 mg 09/05/17 14:51 09/05/17 15:13 Toradol IVPUSH 09/05/17 14:52 30 mg ONETIME ONE Administration Prochlorperazine Edisylate 10 mg 09/05/17 14:51 09/05/17 15:11 Compazine IVPUSH 09/05/17 14:52 10 mg ONETIME ONE Administration - Re-Assessments/Exams Free Text/Narrative Re-Assessment/Exam: 09/05/17 16:44 I ordered an IV, labs, UA, compazine 10mg IV, toradol 30mg IV, and benadryl 50mg IV. Her labs and UA look good. She feels much better. I will discharge her home. Departure - Departure Time of Disposition: 16:45 Disposition: Home, Self-Care 01 Condition: Good Clinical Impression: Migraine Abdominal pain Qualifiers: Abdominal location: generalized Qualified Code(s): R10.84 - Generalized abdominal pain - Discharge Information Referrals: PCP,None [Primary Care Provider] - Additional Instructions: Go home and rest. Please return if you are worse. - My Orders Last 24 Hours: My Active Orders 09/05/17 14:50 Cardiac Monitoring [RC] . DIRECTED Peripheral IV Care [RC] . DIRECTED Sodium Chloride 0.9% [Saline Flush] 10 ml FLUSH ASDIRECTED PRN Peripheral IV Insertion Adult [OM.PC] Stat 09/05/17 15:00 Sodium Chloride 0.9% [Normal Saline] 1,000 ml IV ASDIRECTED - Assessment/Plan Last 24 Hours: My Active Orders 09/05/17 14:50 Cardiac Monitoring [RC] . DIRECTED Peripheral IV Care [RC] . DIRECTED Sodium Chloride 0.9% [Saline Flush] 10 ml FLUSH ASDIRECTED PRN Peripheral IV Insertion Adult [OM.PC] Stat 09/05/17 15:00 Sodium Chloride 0.9% [Normal Saline] 1,000 ml IV ASDIRECTED
== END 2017-09-05 16:52 | disposition home or self-care (01) ==
LOC: JD.ED 13:46
DX: G43.909 Migraine, unspecified, not intractable, without status migrainosus (principal); R10.84 Generalized abdominal pain; I10 Essential (primary) hypertension; Z88.6 Allergy status to analgesic agent; Z88.0 Allergy status to penicillin; Z88.2 Allergy status to sulfonamides; Z79.899 Other long term (current) drug therapy; Z88.1 Allergy status to other antibiotic agents
CPT/HCPCS: 36415; 80053; 81001; 83690; 85025; 96361; 96374; 96375; 99284; J0780; J1200; J1885; J7040; J7050

== ENCOUNTER 2018-01-03 08:16 | Emergency (ER) | payer SELFPAY ==
[2018-01-03] MEDS ORDERED: Metoclopramide 10 MG/2 ML SDV IVPUSH ONE (08:47)
[2018-01-03] MEDS ORDERED: HYDROmorphone 0.5 MG/0.5 ML SYRINGE IVPUSH ONE (08:48)
--- NOTE | 2018-01-03 08:49 | EDM.PDOC ---
ED HPI GENERAL MEDICAL PROBLEM - General Chief Complaint: Abdominal Pain Stated Complaint: ABDOMINAL PAIN Time Seen by Provider: 01/03/18 08:43 Source of Information: Reports: Patient History Limitations: Reports: No Limitations - History of Present Illness INITIAL COMMENTS - FREE TEXT/NARRATIVE: 54 year old female presents to the ED with acute onset of sever RUQ abdominal pain . Pain is constant with a strong colicky componet. Pain awoke her from sleep. Nasuea and vomiting of red stained emesis. Urine looked normal this am. No feeling of need to void. Previous abdominal surgery is a hysterectomy with one ovary left in. Pain is not felt in flank. Crying with pain and no position is comfortable. Pain started suddenly about 0645 hrs this am. Vomited started almost immediately after the pain. Onset: Today Onset Date: 01/03/18 Onset Time: 06:45 Duration: Hour(s): Location: Reports: Abdomen (RUQ) Quality: Reports: Ache, Sharp, Stabbing, Other (colicky type pain. ) Severity: Severe (10/10) Improves with: Reports: None Worsens with: Reports: None Context: Reports: Other (waoke from sleep with the pain ). Denies: Activity, Exercise, Lifting, Sick Contact, Trauma Associated Symptoms: Reports: Loss of Appetite, Nausea/Vomiting (x 2 . ). 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 (see below) (none) Abdomen Pain Score (Numeric/FACES): 10 - Related Data Allergies Allergy/AdvReac Type Severity Reaction Status Date / Time acetaminophen Allergy Rash Verified 01/03/18 08:26 [From Darvocet-N] Penicillins Allergy Rash Verified 01/03/18 08:26 propoxyphene napsylate Allergy Rash Verified 09/05/17 14:25 [From Darvocet-N] Sulfa (Sulfonamide Allergy Rash Verified 01/03/18 08:26 Antibiotics) sulfamethoxazole Allergy Rash Verified 01/03/18 08:26 [From Bactrim] trimethoprim [From Bactrim] Allergy Rash Verified 01/03/18 08:26 Home Meds: Home Meds Lisinopril 10 mg PO DAILY 10/12/15 [History] Naproxen 500 mg PO BID #30 tablet 11/17/17 [Rx] Ondansetron [Zofran] 4 mg BUCCAL Q6H PRN #6 tab 01/03/18 [Rx] oxyCODONE HCl/Acetaminophen [Percocet 5-325 mg Tablet] 1 - 2 each PO Q4H PRN # 12 tablet 01/03/18 [Rx] Past Medical History HEENT History: Reports: Impaired Vision Other HEENT History: Wears eyeglasses. 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: Musculoskeletal History: Reports: Back Pain, Chronic Neurological History: Reports: Migraines Psychiatric History: Reports: Depression - Past Surgical History GI Surgical History: Reports: Appendectomy Female Surgical History: Reports: Hysterectomy Social & Family History - Family History Family Medical History: Noncontributory - Tobacco Use Smoking Status *Q: Never Smoker Second Hand Smoke Exposure: No - Caffeine Use Caffeine Use: Reports: None - Alcohol Use Days Per Week of Alcohol Use: 0 - Recreational Drug Use Recreational Drug Use: No - Living Situation & Occupation Living situation: Reports: Single Occupation: Employed ED ROS GENERAL - Review of Systems Review Of Systems: See Below Constitutional: Reports: Decreased Appetite. Denies: Fever, Chills, Malaise, Weakness, Fatigue, Weight Loss HEENT: Reports: No Symptoms Respiratory: Reports: No Symptoms Cardiovascular: Reports: No Symptoms Endocrine: Reports: No Symptoms GI/Abdominal: Reports: Abdominal Pain ( acute onset RUQ) : Reports: No Symptoms Musculoskeletal: Reports: No Symptoms Skin: Reports: No Symptoms Neurological: Reports: No Symptoms Psychiatric: Reports: No Symptoms Hematologic/Lymphatic: Reports: No Symptoms Immunologic: Reports: No Symptoms ED EXAM, GI/ABD - Physical Exam Exam: See Below Exam Limited By: No Limitations General Appearance: Alert, Moderate Distress (in obvious pain. ) Eyes: Bilateral: Normal Appearance (no jaundice ) Throat/Mouth: Normal Inspection, Normal Lips, Normal Teeth, Normal Oropharynx, Other (mildy dry ) Head: Atraumatic, Normocephalic Respiratory/Chest: Respiratory Distress (mildy tachypneic due to pain response. ) Cardiovascular: Normal Peripheral Pulses, Regular Rate, Rhythm, No Edema, No Gallop, No Murmur GI/Abdominal Exam: Soft, Non-Tender, No Organomegaly, Tender ( RUQ with guarding ), Abnormal Bowel Sounds (few and far between ) Back Exam: Normal Inspection, Full Range of Motion. No: CVA Tenderness (L), CVA Tenderness (R) Extremities: Normal Inspection, Normal Range of Motion, Non-Tender, No Pedal Edema Neurological: Alert, Oriented, CN II-XII Intact, Normal Cognition Psychiatric: Anxious, Tearful Skin Exam: Warm, Dry, Intact, Normal Color, No Rash Course - Vital Signs Last Recorded V/S: Last Vital Signs Temp 36.4 C 01/03/18 08:20 Pulse 84 01/03/18 09:40 Resp 18 01/03/18 09:40 BP 132/71 01/03/18 09:40 Pulse Ox 96 01/03/18 09:40 - Orders/Labs/Meds Orders: Active Orders 24 hr Category Date Time Status URINALYSIS W/MICROSCOPIC [UA W/MICROSCOPIC] [URIN] Stat Lab 01/03/18 09:58 Ordered Dextrose 5%-0.9% NaCl [Dextrose 5%-Normal Saline] 1,000 Med 01/03/18 09:00 Active ml IV ASDIRECTED Ketorolac [Toradol] Med 01/03/18 09:00 Active 30 mg IVPUSH ONETIME Medication Orders Dextrose/Sodium Chloride (Dextrose 5%-Normal Saline) 1,000 mls @ 150 mls/hr IV ASDIRECTED LADONNA Last Admin: 01/03/18 09:10 Dose: 150 mls/hr Ketorolac Tromethamine (Toradol) 30 mg IVPUSH ONETIME LADONNA Last Admin: 01/03/18 09:08 Dose: 30 mg Labs: Laboratory Tests 01/03/18 01/03/18 Range/Units 08:40 08:40 WBC 8.24 (3.98-10.04) K/mm3 RBC 5.00 (3.98-5.22) M/mm3 Hgb 14.4 (11.2-15.7) gm/L Hct 43.1 (34.1-44.9) % MCV 86.2 (79.4-94.8) fl MCH 28.8 (25.6-32.2) pg MCHC 33.4 (32.2-35.5) g/dl RDW Std Deviation 40.5 (36.4-46.3) fL Plt Count 191 (182-369) K/mm3 MPV 12.0 (9.4-12.3) fl Neutrophils % (Manual) 49 (40-60) % Band Neutrophils % 1 (0-10) % Lymphocytes % (Manual) 37 (20-40) % Atypical Lymphs % 0 % Monocytes % (Manual) 9 (2-10) % Eosinophils % (Manual) 2 (0.7-5.8) % Basophils % (Manual) 2 H (0.1-1.2) Platelet Estimate Adequate RBC Morph Comment Normal Sodium 142 (136-145) mEq/L Potassium 4.0 (3.5-5.1) mEq/L Chloride 108 H (98-107) mEq/L Carbon Dioxide 24 (21-32) mEq/L Anion Gap 14.0 (5-15) BUN 15 (7-18) mg/dL Creatinine 0.7 (0.55-1.02) mg/dL Est Cr Clr Drug Dosing 85.56 mL/min Estimated GFR (MDRD) > 60 (>60) mL/min BUN/Creatinine Ratio 21.4 H (14-18) Glucose 111 H (74-106) mg/dL Calcium 9.6 (8.5-10.1) mg/dL Total Bilirubin 0.3 (0.2-1.0) mg/dL AST 10 L (15-37) U/L ALT 33 (14-59) U/L Alkaline Phosphatase 61 (46-116) U/L C-Reactive Protein 0.2 (<1.0) mg/dL Total Protein 8.1 (6.4-8.2) g/dl Albumin 4.1 (3.4-5.0) g/dl Globulin 4.0 gm/dL Albumin/Globulin Ratio 1.0 (1-2) Meds: Medications Generic Name Dose Route Start Last Admin Trade Name Freq PRN Reason Stop Dose Admin Dextrose/Sodium Chloride 1,000 mls @ 150 mls/hr 01/03/18 09:00 01/03/18 09:10 Dextrose 5%-Normal Saline IV 150 mls/hr ASDIRECTED LADONNA Administration Ketorolac Tromethamine 30 mg 01/03/18 09:00 01/03/18 09:08 Toradol IVPUSH 30 mg ONETIME LADONNA Administration Discontinued Medications Generic Name Dose Route Start Last Admin Trade Name Freq PRN Reason Stop Dose Admin Hydromorphone HCl 1 mg 01/03/18 08:48 01/03/18 09:03 Dilaudid IVPUSH 01/03/18 08:49 1 mg ONETIME ONE Administration Metoclopramide HCl 7.5 mg 01/03/18 08:47 01/03/18 09:05 Reglan IVPUSH 01/03/18 08:48 7.5 mg ONETIME ONE Administration - Radiology Interpretation Free Text/Narrative:: 54 year old female presents to the ED with acute onset of RUQ abdominal pain that wawoke her from sleep this am about 0645hrs. Associated emesis x 2. no position is comfortable. Pain is constant with strong colicky component to the pain. Biliary colic vs renal colic. Plan IV D5 N/S at 150mls/hr. Given [id number] IV with Toradol 30mg IV and regelan 10mg IV. CT of the abdomen will be done per renal protocol. - Re-Assessments/Exams Free Text/Narrative Re-Assessment/Exam: 01/03/18 10:03 Labs reveal a normal white count at 8.24 with 49% neutrophils 1% bands. Hemoglobin is 14.4 and hematocrit of 43.1. Platelet count was normal 191, 000. Chemistry shows a sodium of 142 potassium of 4.0. Chloride 108 with a bicarbonate 24. And a gap is normal at 14.0. BUN is 15 with a creatinine of 0.7. 111. Calcium is 9.6. Bilirubin is 0.3 with an AST of 10. AST is 33. Alk phosphatase 61. I.e. no signs of biliary tree obstruction. C-reactive protein is 0.2. The CT the abdomen reveals a few cholesterol gallstones in the gallbladder. Common bile duct appears to be normal pancreas appears normal be normal liver and spleen are normal. There is slightly increased stool in the right upper quadrant of the abdomen. There is no hydronephrosis or evidence of renal stone. Anus completely gone. Patient be discharged home with 6 Percocet tablets to be used as needed for recurrence of similar type pain. Zofran 4 mg under the tongue as needed for nausea relief 5 tablets. Will advise to have a formal gallbladder ultrasound performed at some point in time through her primary care provider. There is an incidental 3.5 cm right ovarian cyst which should probably be ultrasounded in 6-8 weeks time. Departure - Departure Time of Disposition: 10:05 Disposition: Home, Self-Care 01 Condition: Fair Clinical Impression: Acute abdominal pain, Biliary colic symptom - Discharge Information Prescriptions: Ondansetron [Zofran] 4 mg BUCCAL Q6H PRN #6 tab PRN Reason: nausea or vomiting oxyCODONE HCl/Acetaminophen [Percocet 5-325 mg Tablet] 1 - 2 each PO Q4H PRN # 12 tablet PRN Reason: pain relief. Referrals: Carmen Hernandez NP [Primary Care Provider] - Forms: ED Department Discharge Additional Instructions: Evaluation the emergent today in regards to awakening with severe right upper quadrant abdominal pain with associated nausea and vomiting. History was compatible with a gallbladder attack consist unusual to awaken early in the morning with a gallbladder attack. It usually occurs 2-3 hours after eating something fatty. You're treated with intravenous fluids and pain medication Toradol 30 mg IV with Reglan 10 mg IV to arrest nausea and vomiting and Dilaudid 1 mg for pain relief. This worked fairly well to relieve her pain. CT the abdomen was completed 10 reveals a few small cholesterol gallstones in the gallbladder. This slightly increased stool in the right upper quadrant of the abdomen but no other abnormalities. There is no signs of any kidney stones or stones in the drainage tubes. The pancreas liver and spleen appear healthy. 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 I would also suggest ultrasound of your gallbladder be done at that time as well. Diet should be clear fluids such as Gatorade Powerade almost any other juices. Avoid anything fatty days. Mostly carbohydrates today such as breads, pasta etc. Return to medical care if similar type pain occurs and is not controlled with medications. I did write a prescription for Zofran 4 mg that can going to your tongue every 4-6 hours as needed for nausea or vomiting relief. Also Percocet tabs 2 tablets at onset of severe abdominal pain if it occurs again. Is for take about 35 minutes to 45 minutes to start to work. Follow-up with personal care physician if you continue to have similar type problems as most people after 2 or 3 of these attacks elected to have the gallbladder removed. - My Orders Last 24 Hours: My Active Orders 01/03/18 09:00 Dextrose 5%-0.9% NaCl [Dextrose 5%-Normal Saline] 1,000 ml IV ASDIRECTED Ketorolac [Toradol] 30 mg IVPUSH ONETIME 01/03/18 09:58 URINALYSIS W/MICROSCOPIC [UA W/MICROSCOPIC] [URIN] Stat - Assessment/Plan Last 24 Hours: My Active Orders 01/03/18 09:00 Dextrose 5%-0.9% NaCl [Dextrose 5%-Normal Saline] 1,000 ml IV ASDIRECTED Ketorolac [Toradol] 30 mg IVPUSH ONETIME 01/03/18 09:58 URINALYSIS W/MICROSCOPIC [UA W/MICROSCOPIC] [URIN] Stat
[2018-01-03] MEDS ORDERED: Dextrose 5%-0.9% NaCl 1,000 ML IV SCH (09:00)
[2018-01-03] MEDS ORDERED: Ketorolac 30 MG/ML SDV IVPUSH SCH (09:00)
--- NOTE | 2018-01-03 09:47 | CT ---
CT abdomen and pelvis Technique: Multiple axial sections were obtained from above the kidneys inferiorly through the pubic symphysis. Intravenous and oral contrast was not utilized. Study has been performed as a ureteral stone protocol. Comparison: Prior abdominal and pelvic CT exam of 10/04/16. Findings: Kidneys show no abnormal calcifications. No hydronephrosis is seen. No abnormal calcifications are seen along the course of the ureters. No bladder calculi are seen. Visualized lung bases shows nothing acute. Noncontrast appearance of the visualized liver and spleen appear within normal limits. Multiple low density lesions are seen within the gallbladder which are felt compatible with multiple small cholesterol gallstones. Adrenal glands show no nodule. Pancreas is within normal limits. Aorta shows no aneurysmal dilatation with minimal atherosclerotic calcification. Appendix is seen which is normal. Cyst is noted within the right ovary measuring approximately 3.5 cm. No free fluid or inflammatory change is seen within the abdomen or pelvis. Minimal increased stool is noted within the colon. Bone window settings were reviewed which appears within normal limits for the patient's age. Impression: 1. No renal calculi, hydronephrosis or ureteral stone is seen. 2. 3.5 cm cyst within the right ovary. This finding is not seen on prior CT exam. 3. Multiple small cholesterol gallstones are seen within the gallbladder. 4. No additional abnormality is appreciated on noncontrast CT study of the abdomen and pelvis performed as a ureteral stone protocol. Diagnostic code #3
[2018-01-03 10:42] VITALS: BP 124/70
== END 2018-01-03 10:20 | disposition home or self-care (01) ==
LOC: JD.ED 08:16
DX: R10.11 Right upper quadrant pain (principal); I10 Essential (primary) hypertension; Z88.0 Allergy status to penicillin; Z88.2 Allergy status to sulfonamides; Z79.899 Other long term (current) drug therapy; Z87.01 Personal history of pneumonia (recurrent); Z88.8 Allergy status to other drugs, medicaments and biological substances
CPT/HCPCS: 36415; 74176; 80053; 81001; 85025; 86140; 96361; 96374; 96375; 99284; J1170; J1885; J2765; J7042

== ENCOUNTER 2018-05-24 14:16 | Emergency (ER) | payer MEDICAID ==
[2018-05-24 14:54] VITALS: BP 121/73
[2018-05-24] MEDS ORDERED: Ketorolac 30 MG/ML SDV IVPUSH ONE (15:24)
[2018-05-24] MEDS ORDERED: diphenhydrAMINE 50 MG/ML SDV IVPUSH ONE (15:24)
[2018-05-24] MEDS ORDERED: Prochlorperazine 10 MG/2 ML SDV IVPUSH ONE (15:24)
[2018-05-24] MEDS ORDERED: Sodium Chloride 0.9% 10 ML Syringe FLUSH PRN (15:24)
--- NOTE | 2018-05-24 15:59 | EDM.PDOC ---
ED HPI GENERAL MEDICAL PROBLEM - General Chief Complaint: Headache Stated Complaint: MIGRAINES Time Seen by Provider: 05/24/18 14:53 Source of Information: Reports: Patient History Limitations: Reports: No Limitations - History of Present Illness INITIAL COMMENTS - FREE TEXT/NARRATIVE: The patient presents with a headache. The headache is generalized. This started a few days ago. She has some nausea and photophobia. She has a history of migraines. She has no fever, chills, cough, chest pain, shortness of breath, abdominal pain, and vomiting. She went to the clinic today and the gave her a shot of toradol but that did not help. Onset: Gradual Duration: Day(s): Location: Reports: Head Quality: Reports: Ache Severity: Severe Improves with: Reports: None Worsens with: Reports: None Associated Symptoms: Reports: Headaches, Nausea/Vomiting. Denies: Chest Pain, Cough, Fever/Chills, Shortness of Breath Left Headache Pain Score (Numeric/FACES): 10 - Related Data Allergies Allergy/AdvReac Type Severity Reaction Status Date / Time acetaminophen Allergy Rash Verified 01/03/18 08:26 [From Darvocet-N] Penicillins Allergy Rash Verified 01/03/18 08:26 propoxyphene napsylate Allergy Rash Verified 09/05/17 14:25 [From Darvocet-N] Sulfa (Sulfonamide Allergy Rash Verified 01/03/18 08:26 Antibiotics) sulfamethoxazole Allergy Rash Verified 01/03/18 08:26 [From Bactrim] trimethoprim [From Bactrim] Allergy Rash Verified 01/03/18 08:26 Home Meds: Home Meds Ondansetron [Zofran] 4 mg BUCCAL Q6H PRN #6 tab 01/03/18 [Rx] Lisinopril 10 mg PO DAILY 05/24/18 [History] Naproxen 500 mg PO BID 05/24/18 [History] Past Medical History HEENT History: Reports: Impaired Vision Other HEENT History: Wears eyeglasses. 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: Musculoskeletal History: Reports: Back Pain, Chronic Neurological History: Reports: Migraines Psychiatric History: Reports: Depression - Past Surgical History GI Surgical History: Reports: Appendectomy Female Surgical History: Reports: Hysterectomy Social & Family History - Family History Family Medical History: Noncontributory - Tobacco Use Smoking Status *Q: Never Smoker - Caffeine Use Caffeine Use: Reports: Soda - Recreational Drug Use Recreational Drug Use: No - Living Situation & Occupation Living situation: Reports: Single Occupation: Employed ED ROS GENERAL - Review of Systems Review Of Systems: See Below Constitutional: Reports: No Symptoms HEENT: Reports: No Symptoms Respiratory: Reports: No Symptoms Cardiovascular: Reports: No Symptoms Endocrine: Reports: No Symptoms GI/Abdominal: Reports: Nausea. Denies: Abdominal Pain, Vomiting : Reports: No Symptoms Musculoskeletal: Reports: No Symptoms Neurological: Reports: Headache - Physical Exam Exam: See Below Exam Limited By: No Limitations General Appearance: Alert, No Apparent Distress Ears: Normal External Exam Nose: Normal Inspection Head Exam: Atraumatic, Normocephalic Neck: Normal Inspection Respiratory/Chest: No Respiratory Distress, Lungs Clear, Normal Breath Sounds Cardiovascular: Regular Rate, Rhythm, No Edema, No Murmur GI/Abdominal: Soft, Non-Tender, No Organomegaly, No Mass Neuro Exam (Abbreviated): Alert, Oriented, No Motor/Sensory Deficits Course - Vital Signs Last Recorded V/S: Last Vital Signs Temp 98.8 F 05/24/18 14:51 Pulse 79 05/24/18 14:51 Resp 20 05/24/18 14:51 BP 121/73 05/24/18 14:51 Pulse Ox 98 05/24/18 14:51 - Orders/Labs/Meds Orders: Active Orders 24 hr Category Date Time Status Peripheral IV Care [RC] . DIRECTED Care 05/24/18 15:24 Active Sodium Chloride 0.9% [Saline Flush] Med 05/24/18 15:24 Active 10 ml FLUSH ASDIRECTED PRN Peripheral IV Insertion Adult [OM.PC] Routine Oth 05/24/18 15:24 Ordered Medication Orders Sodium Chloride (Saline Flush) 10 ml FLUSH ASDIRECTED PRN PRN Reason: Keep Vein Open Last Admin: 05/24/18 15:45 Dose: 10 ml Meds: Medications Generic Name Dose Route Start Last Admin Trade Name Freq PRN Reason Stop Dose Admin Sodium Chloride 10 ml 05/24/18 15:24 05/24/18 15:45 Saline Flush FLUSH 10 ml ASDIRECTED PRN Administration Keep Vein Open Discontinued Medications Generic Name Dose Route Start Last Admin Trade Name Ramy PRN Reason Stop Dose Admin Diphenhydramine HCl 50 mg 05/24/18 15:24 05/24/18 15:44 Benadryl IVPUSH 05/24/18 15:25 50 mg ONETIME ONE Administration Ketorolac Tromethamine 30 mg 05/24/18 15:24 05/24/18 15:43 Toradol IVPUSH 05/24/18 15:25 30 mg ONETIME ONE Administration Prochlorperazine Edisylate 10 mg 05/24/18 15:24 05/24/18 15:42 Compazine IVPUSH 05/24/18 15:25 10 mg ONETIME ONE Administration - Re-Assessments/Exams Free Text/Narrative Re-Assessment/Exam: 05/24/18 15:58 I ordered an IV saline lock, compazine 10mg IV, toradol 30mg IV and benadryl 50mg IV. 05/24/18 16:22 She is feeling better. I will discharge her home. Departure - Departure Time of Disposition: 16:25 Disposition: Home, Self-Care 01 Condition: Good Clinical Impression: Migraine - Discharge Information *PRESCRIPTION DRUG MONITORING PROGRAM REVIEWED*: No *COPY OF PRESCRIPTION DRUG MONITORING REPORT IN PATIENT EMA: No Referrals: Simona Bateman PA-C [Primary Care Provider] - Forms: ED Department Discharge Additional Instructions: Go home and rest in a dark quiet room. Please return if you are worse. - My Orders Last 24 Hours: My Active Orders 05/24/18 15:24 Peripheral IV Care [RC] . DIRECTED Sodium Chloride 0.9% [Saline Flush] 10 ml FLUSH ASDIRECTED PRN Peripheral IV Insertion Adult [OM.PC] Routine - Assessment/Plan Last 24 Hours: My Active Orders 05/24/18 15:24 Peripheral IV Care [RC] . DIRECTED Sodium Chloride 0.9% [Saline Flush] 10 ml FLUSH ASDIRECTED PRN Peripheral IV Insertion Adult [OM.PC] Routine
== END 2018-05-24 16:35 | disposition home or self-care (01) ==
LOC: JD.ED 14:16
DX: G43.909 Migraine, unspecified, not intractable, without status migrainosus (principal); I10 Essential (primary) hypertension; Z88.0 Allergy status to penicillin; Z88.8 Allergy status to other drugs, medicaments and biological substances; Z88.2 Allergy status to sulfonamides; Z79.899 Other long term (current) drug therapy
CPT/HCPCS: 96374; 96375; 99283; J0780; J1200; J1885; J7050; 99284

== ENCOUNTER 2018-08-25 20:27 | Emergency (ER) | payer MEDICAID ==
[2018-08-25 20:50] VITALS: BP 124/78
[2018-08-25] MEDS ORDERED: Ondansetron 4 MG/2 ML SDV IVPUSH ONE (21:10)
[2018-08-25] MEDS ORDERED: Sodium Chloride 0.9% 1,000 ML IV STA (21:10)
[2018-08-25] MEDS ORDERED: Sodium Chloride 0.9% 10 ML Syringe FLUSH PRN (21:10)
[2018-08-25] MEDS ORDERED: HYDROmorphone 0.5 MG/0.5 ML Syringe IVPUSH ONE (21:11)
[2018-08-25] MEDS ORDERED: HYDROmorphone 1 MG/ML Syringe IVPUSH ONE (21:30)
[2018-08-25] MEDS: HYDROmorphone 1 MG/ML Syringe ONE ×2 (21:31→23:06)
--- NOTE | 2018-08-25 21:59 | EDM.PDOC ---
ED HPI GENERAL MEDICAL PROBLEM - General Chief Complaint: Gastrointestinal Problem Stated Complaint: STOMACH PAIN/VOMITING Time Seen by Provider: 08/25/18 20:59 Source of Information: Reports: Patient, Family History Limitations: Reports: No Limitations - History of Present Illness INITIAL COMMENTS - FREE TEXT/NARRATIVE: The patient presents with abdominal pain, nausea, and vomiting. This all started after work today at 12:30. She has no diarrhea, dysuria, fever, chills , cough, chest pain or shortness of breath. Her was sick a few days ago. She still has her gallbladder and appendix. Onset: Gradual Duration: Hour(s): Location: Reports: Abdomen Quality: Reports: Sharp Severity: Moderate Improves with: Reports: None Worsens with: Reports: None Associated Symptoms: Reports: Nausea/Vomiting. Denies: Cough, Fever/Chills, Headaches, Shortness of Breath Bilateral Abdominal Pain Score (Numeric/FACES): 6 - Related Data Allergies Allergy/AdvReac Type Severity Reaction Status Date / Time Penicillins Allergy Rash Verified 08/25/18 20:51 propoxyphene napsylate Allergy Rash Verified 08/25/18 20:51 [From Darvocet-N] Sulfa (Sulfonamide Allergy Rash Verified 08/25/18 20:51 Antibiotics) sulfamethoxazole Allergy Rash Verified 08/25/18 20:51 [From Bactrim] trimethoprim [From Bactrim] Allergy Rash Verified 08/25/18 20:51 Home Meds: Home Meds Ondansetron [Zofran] 4 mg BUCCAL Q6H PRN #6 tab 01/03/18 [Rx] Lisinopril 10 mg PO DAILY 05/24/18 [History] Naproxen 500 mg PO BID 05/24/18 [History] Past Medical History HEENT History: Reports: Impaired Vision Other HEENT History: Wears eyeglasses. 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: Musculoskeletal History: Reports: Back Pain, Chronic Neurological History: Reports: Migraines Psychiatric History: Reports: Depression - Past Surgical History GI Surgical History: Reports: Appendectomy Female Surgical History: Reports: Hysterectomy Social & Family History - Family History Family Medical History: Noncontributory - Tobacco Use Smoking Status *Q: Never Smoker - Caffeine Use Caffeine Use: Reports: Soda - Recreational Drug Use Recreational Drug Use: No - Living Situation & Occupation Living situation: Reports: Single Occupation: Employed ED ROS GENERAL - Review of Systems Review Of Systems: See Below Constitutional: Reports: No Symptoms HEENT: Reports: No Symptoms Respiratory: Reports: No Symptoms Cardiovascular: Reports: No Symptoms Endocrine: Reports: No Symptoms GI/Abdominal: Reports: Abdominal Pain, Nausea, Vomiting. Denies: Diarrhea : Reports: No Symptoms Musculoskeletal: Reports: No Symptoms Skin: Reports: No Symptoms ED EXAM, GI/ABD - Physical Exam Exam: See Below Exam Limited By: No Limitations General Appearance: Alert, No Apparent Distress Ears: Normal External Exam Nose: Normal Inspection Head: Atraumatic, Normocephalic Neck: Normal Inspection Respiratory/Chest: No Respiratory Distress, Lungs Clear, Normal Breath Sounds Cardiovascular: Regular Rate, Rhythm, No Edema, No Murmur GI/Abdominal Exam: Soft, No Organomegaly, No Mass, Tender (Mild upper abdominal pain) Extremities: Normal Inspection Course - Vital Signs Last Recorded V/S: Last Vital Signs Temp 98.8 F 08/25/18 20:47 Pulse 104 H 08/25/18 20:47 Resp 16 08/25/18 20:47 BP 124/78 08/25/18 20:47 Pulse Ox 96 08/25/18 20:47 Orthostatic Blood Pressure [ 115/75 Standing] Orthostatic Blood Pressure [ 110/80 Sitting] Orthostatic Blood Pressure [ 114/68 Supine] - Orders/Labs/Meds Orders: Active Orders 24 hr Category Date Time Status Peripheral IV Care [RC] . DIRECTED Care 08/25/18 21:11 Active Sodium Chloride 0.9% [Saline Flush] Med 08/25/18 21:10 Active 10 ml FLUSH ASDIRECTED PRN ED Antiemetic Medication Reflex [OM.PC] Stat Oth 08/25/18 21:11 Ordered Peripheral IV Insertion Adult [OM.PC] Stat Oth 08/25/18 21:10 Ordered Medication Orders Sodium Chloride (Saline Flush) 10 ml FLUSH ASDIRECTED PRN PRN Reason: Keep Vein Open Last Admin: 08/25/18 21:31 Dose: 10 ml Labs: Laboratory Tests 08/25/18 08/25/18 08/25/18 Range/Units 21:20 21:20 21:58 WBC 7.99 (3.98-10.04) K/mm3 RBC 4.65 (3.98-5.22) M/mm3 Hgb 13.6 (11.2-15.7) gm/L Hct 40.7 (34.1-44.9) % MCV 87.5 (79.4-94.8) fl MCH 29.2 (25.6-32.2) pg MCHC 33.4 (32.2-35.5) g/dl RDW Std Deviation 43.6 (36.4-46.3) fL Plt Count 172 L (182-369) K/mm3 MPV 11.1 (9.4-12.3) fl Neut % (Auto) 86.5 H (34.0-71.1) % Lymph % (Auto) 7.5 L (19.3-51.7) % [place] % (Auto) 5.0 (4.7-12.5) % Eos % (Auto) 0.8 (0.7-5.8) Baso % (Auto) 0.1 (0.1-1.2) % Neut # (Auto) 6.91 H (1.56-6.13) K/mm3 Lymph # (Auto) 0.60 L (1.18-3.74) K/mm3 [place] # (Auto) 0.40 H (0.24-0.36) K/mm3 Eos # (Auto) 0.06 (0.04-0.36) K/mm3 Baso # (Auto) 0.01 (0.01-0.08) K/mm3 Manual Slide Review Normal smear Sodium 140 (136-145) mEq/L Potassium 3.3 L (3.5-5.1) mEq/L Chloride 108 H (98-107) mEq/L Carbon Dioxide 21 (21-32) mEq/L Anion Gap 14.3 (5-15) BUN 21 H (7-18) mg/dL Creatinine 0.8 (0.55-1.02) mg/dL Est Cr Clr Drug Dosing 74.86 mL/min Estimated GFR (MDRD) > 60 (>60) mL/min BUN/Creatinine Ratio 26.3 H (14-18) Glucose 114 H (74-106) mg/dL Calcium 8.4 L (8.5-10.1) mg/dL Total Bilirubin 0.7 (0.2-1.0) mg/dL AST 14 L (15-37) U/L ALT 26 (14-59) U/L Alkaline Phosphatase 66 (46-116) U/L Total Protein 7.3 (6.4-8.2) g/dl Albumin 3.8 (3.4-5.0) g/dl Globulin 3.5 gm/dL Albumin/Globulin Ratio 1.1 (1-2) Lipase 53 L (73-393) U/L Urine Color Yellow (Yellow) Urine Appearance Slt cloudy H (Clear) Urine pH 7.0 (5.0-8.0) Ur Specific [place] 1.025 (1.005-1.030) Urine Protein 1+ H (Negative) Urine Glucose (UA) Negative (Negative) Urine Ketones Trace H (Negative) Urine Occult Blood 1+ H (Negative) Urine Nitrite Negative (Negative) Urine Bilirubin Negative (Negative) Urine Urobilinogen 1.0 (0.2-1.0) Ur Leukocyte Esterase Negative (Negative) Urine RBC 0-5 (0-5) /hpf Urine WBC 0-5 (0-5) /hpf Ur Epithelial Cells 10-20 H (0-5) /hpf Urine Bacteria Moderate H (FEW) /hpf Urine Mucus Moderate H (FEW) /hpf Meds: Medications Generic Name Dose Route Start Last Admin Trade Name Ramy PRN Reason Stop Dose Admin Sodium Chloride 10 ml 08/25/18 21:10 08/25/18 21:31 Saline Flush FLUSH 10 ml ASDIRECTED PRN Administration Keep Vein Open Discontinued Medications Generic Name Dose Route Start Last Admin Trade Name Ramy PRN Reason Stop Dose Admin Hydromorphone HCl 0.5 mg 08/25/18 21:11 Dilaudid IVPUSH 08/25/18 21:12 ONETIME ONE Hydromorphone HCl Confirm 08/25/18 21:26 Dilaudid Administered 08/25/18 21:27 Dose 1 mg .ROUTE .STK-MED ONE Hydromorphone HCl 0.5 mg 08/25/18 21:30 08/25/18 21:32 Dilaudid IVPUSH 08/25/18 21:31 0.5 mg ONETIME ONE Administration Sodium Chloride 1,000 mls @ 1,000 mls/hr 08/25/18 21:10 08/25/18 21:29 Normal Saline IV 08/25/18 22:09 1,000 mls/hr .BOLUS STA Administration Ondansetron HCl 4 mg 08/25/18 21:10 08/25/18 21:31 Zofran IVPUSH 08/25/18 21:11 4 mg ONETIME ONE Administration - Re-Assessments/Exams Free Text/Narrative Re-Assessment/Exam: 08/25/18 22:40 I ordered an IV NS 1L bolus, labs, UA, zofran 4mg IV, and dilaudid 0.5mg IV. Her CBC looks good her K was a little low at 3.3. Her lipase was low. Her UA shows no UTI. She is feeling better and wants some water now. I will discharge her home. Departure - Departure Time of Disposition: 22:50 Disposition: Home, Self-Care 01 Condition: Good Clinical Impression: Gastroenteritis, Vomiting - Discharge Information *PRESCRIPTION DRUG MONITORING PROGRAM REVIEWED*: No *COPY OF PRESCRIPTION DRUG MONITORING REPORT IN PATIENT EMA: No Referrals: Simona Bateman PA-C [Primary Care Provider] - Forms: ED Department Discharge, ED Return to Work/School Form Additional Instructions: Drink plenty of fluids. Take zofran every 6 hours as needed for nausea and vomiting. Please return if you are worse. - My Orders Last 24 Hours: My Active Orders 08/25/18 21:10 Sodium Chloride 0.9% [Saline Flush] 10 ml FLUSH ASDIRECTED PRN Peripheral IV Insertion Adult [OM.PC] Stat 08/25/18 21:11 Peripheral IV Care [RC] . DIRECTED ED Antiemetic Medication Reflex [OM.PC] Stat - Assessment/Plan Last 24 Hours: My Active Orders 08/25/18 21:10 Sodium Chloride 0.9% [Saline Flush] 10 ml FLUSH ASDIRECTED PRN Peripheral IV Insertion Adult [OM.PC] Stat 08/25/18 21:11 Peripheral IV Care [RC] . DIRECTED ED Antiemetic Medication Reflex [OM.PC] Stat
== END 2018-08-25 23:04 | disposition home or self-care (01) ==
LOC: JD.ED 20:27
DX: K52.9 Noninfective gastroenteritis and colitis, unspecified (principal); I10 Essential (primary) hypertension; Z79.899 Other long term (current) drug therapy; Z88.2 Allergy status to sulfonamides; Z88.1 Allergy status to other antibiotic agents; Z88.0 Allergy status to penicillin; Z88.8 Allergy status to other drugs, medicaments and biological substances
CPT/HCPCS: 36415; 80053; 81001; 83690; 85025; 96361; 96374; 96375; 99284; J1170; J2405; J7040

== ENCOUNTER 2018-08-26 09:37 | Emergency (ER) | payer MEDICAID ==
[2018-08-26 09:48] VITALS: BP 120/70
[2018-08-26] MEDS ORDERED: Famotidine 20 MG/2 ML SDV IVPUSH ONE (09:58)
[2018-08-26] MEDS ORDERED: Metoclopramide 10 MG/2 ML SDV IVPUSH ONE (09:58)
[2018-08-26] MEDS ORDERED: Sodium Chloride 0.9% 10 ML Syringe FLUSH PRN (09:59)
[2018-08-26] MEDS ORDERED: HYDROmorphone 1 MG/ML Syringe IVPUSH ONE (09:59)
[2018-08-26] MEDS ORDERED: LORazepam 2 MG/ML SDV IVPUSH ONE (10:00)
--- NOTE | 2018-08-26 10:05 | EDM.PDOC ---
ED HPI GENERAL MEDICAL PROBLEM - General Chief Complaint: Gastrointestinal Problem Stated Complaint: VOMITING NOT BETTER Time Seen by Provider: 08/26/18 09:50 Source of Information: Reports: Patient, RN Notes Reviewed - History of Present Illness INITIAL COMMENTS - FREE TEXT/NARRATIVE: 53-year-old female comes in with abdominal pain nausea vomiting and also headache. Ears became ill yesterday afternoon about 21 hours ago. She was evaluated and treated here in the ED last evening. Labs last evening including lipase were normal, UA also normal. This morning she is still nauseated, she tried to eat some toast which made her vomit. She still has frontal throbbing headache. Occasional abdominal cramps but no severe abdominal pain at this time. Her was ill with nausea vomiting about 2 or 3 days ago. Headache Pain Score (Numeric/FACES): 10 - Related Data Allergies Allergy/AdvReac Type Severity Reaction Status Date / Time Penicillins Allergy Rash Verified 08/26/18 09:44 propoxyphene napsylate Allergy Rash Verified 08/26/18 09:44 [From Darvocet-N] Sulfa (Sulfonamide Allergy Rash Verified 08/26/18 09:44 Antibiotics) sulfamethoxazole Allergy Rash Verified 08/26/18 09:44 [From Bactrim] trimethoprim [From Bactrim] Allergy Rash Verified 08/26/18 09:44 Home Meds: Home Meds Ondansetron [Zofran] 4 mg BUCCAL Q6H PRN #6 tab 01/03/18 [Rx] Lisinopril 10 mg PO DAILY 05/24/18 [History] Naproxen 500 mg PO BID 05/24/18 [History] Past Medical History HEENT History: Reports: Impaired Vision Other HEENT History: Wears eyeglasses. 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: Musculoskeletal History: Reports: Back Pain, Chronic Neurological History: Reports: Migraines Psychiatric History: Reports: Depression - Past Surgical History GI Surgical History: Reports: Appendectomy Female Surgical History: Reports: Hysterectomy Social & Family History - Family History Family Medical History: Noncontributory - Tobacco Use Smoking Status *Q: Never Smoker - Caffeine Use Caffeine Use: Reports: Soda - Recreational Drug Use Recreational Drug Use: No - Living Situation & Occupation Living situation: Reports: Single Occupation: Employed ED ROS GENERAL - Review of Systems Review Of Systems: See Below Constitutional: Denies: Fever, Chills HEENT: Denies: Sinus Problem, Throat Pain Respiratory: Denies: Shortness of Breath Cardiovascular: Denies: Chest Pain GI/Abdominal: Reports: Abdominal Pain (Occasional upper and mid abdominal pain and cramping), Nausea, Vomiting. Denies: Diarrhea, Hematochezia, Melena : Reports: No Symptoms Musculoskeletal: Reports: No Symptoms Skin: Reports: No Symptoms Neurological: Reports: Dizziness, Headache. Denies: Trouble Speaking ED EXAM, GI/ABD - Physical Exam Exam: See Below General Appearance: Alert, Anxious, Moderate Distress Eyes: Bilateral: Normal Appearance Throat/Mouth: Normal Inspection, Normal Oropharynx Head: Atraumatic. No: Facial Swelling Neck: Supple, Full Range of Motion Respiratory/Chest: No Respiratory Distress, Lungs Clear, Normal Breath Sounds Cardiovascular: Regular Rate, Rhythm GI/Abdominal Exam: Soft, Tender (Very mild tenderness upper mid and mid abdomen) . No: Guarding, Rebound Back Exam: No: CVA Tenderness (L), CVA Tenderness (R) Extremities: Normal Inspection Neurological: Alert, Oriented, No Motor/Sensory Deficits Skin Exam: Warm, Dry, Normal Color, No Rash Course - Vital Signs Last Recorded V/S: Last Vital Signs Temp 97.3 F 08/26/18 09:44 Pulse 90 08/26/18 09:44 Resp 20 08/26/18 09:44 BP 120/70 08/26/18 09:44 Pulse Ox 96 08/26/18 09:44 - Orders/Labs/Meds Orders: Active Orders 24 hr Category Date Time Status Peripheral IV Care [RC] . DIRECTED Care 08/26/18 10:00 Active Peripheral IV Insertion Adult [OM.PC] Stat Oth 08/26/18 09:58 Ordered Meds: Medications Discontinued Medications Generic Name Dose Route Start Last Admin Trade Name Ramy PRN Reason Stop Dose Admin Famotidine 20 mg 08/26/18 09:58 08/26/18 10:13 Pepcid IVPUSH 08/26/18 09:59 20 mg ONETIME ONE Administration Hydromorphone HCl 1 mg 08/26/18 09:59 08/26/18 10:13 Dilaudid IVPUSH 08/26/18 10:00 1 mg ONETIME ONE Administration Lorazepam 0.5 mg 08/26/18 10:00 08/26/18 10:17 Ativan IVPUSH 08/26/18 10:01 0.5 mg ONETIME ONE Administration Metoclopramide HCl 5 mg 08/26/18 09:58 08/26/18 10:13 Reglan IVPUSH 08/26/18 09:59 5 mg ONETIME ONE Administration Sodium Chloride 10 ml 08/26/18 09:59 08/26/18 10:13 Saline Flush FLUSH 10 ml ASDIRECTED PRN Administration Keep Vein Open - Re-Assessments/Exams Free Text/Narrative Re-Assessment/Exam: 08/26/18 11:22 Feeling much better after IV fluid and meds. Departure - Departure Time of Disposition: 11:05 Disposition: Home, Self-Care 01 Condition: Fair Clinical Impression: Abdominal pain Qualifiers: Abdominal location: generalized Qualified Code(s): R10.84 - Generalized abdominal pain Vomiting Qualifiers: Vomiting type: unspecified Vomiting Intractability: non-intractable Nausea presence: with nausea Qualified Code(s): R11.2 - Nausea with vomiting, unspecified Migraine headache Qualifiers: Migraine type: unspecified Status migrainosus presence: without status migrainosus Intractability: not intractable Qualified Code(s): G43.909 - Migraine, unspecified, not intractable, without status migrainosus - Discharge Information Instructions: Migraine Headache, [id number], Abdominal Pain, Adult, Easy-to- Read Referrals: Simona Bateman PA-C [Primary Care Provider] - Forms: ED Department Discharge Additional Instructions: Clear liquids until this evening, than very careful bland diet as tolerated, follow-up clinic as needed, return to ED as needed if symptoms worsening in any way. - My Orders Last 24 Hours: My Active Orders 08/26/18 09:58 Peripheral IV Insertion Adult [OM.PC] Stat 08/26/18 10:00 Peripheral IV Care [RC] . DIRECTED - Assessment/Plan Last 24 Hours: My Active Orders 08/26/18 09:58 Peripheral IV Insertion Adult [OM.PC] Stat 08/26/18 10:00 Peripheral IV Care [RC] . DIRECTED
== END 2018-08-26 11:15 | disposition home or self-care (01) ==
LOC: JD.ED 09:37
DX: G43.909 Migraine, unspecified, not intractable, without status migrainosus (principal); R11.2 Nausea with vomiting, unspecified; R10.84 Generalized abdominal pain; I10 Essential (primary) hypertension; Z88.0 Allergy status to penicillin; Z79.899 Other long term (current) drug therapy; Z90.49 Acquired absence of other specified parts of digestive tract
CPT/HCPCS: 96374; 96375; 99284; J1170; J2060; J2765; J3490

== ENCOUNTER 2018-09-17 16:56 | Emergency (ER) | payer MEDICAID ==
[2018-09-17 17:13] VITALS: BP 121/74
[2018-09-17] MEDS ORDERED: Ketorolac 30 MG/ML SDV IM ONE (18:24)
[2018-09-17] MEDS ORDERED: Haloperidol Lactate 5 MG/ML SDV IM ONE (18:24)
[2018-09-17] MEDS ORDERED: diphenhydrAMINE 50 MG/ML SDV IM ONE (18:24)
[2018-09-17] MEDS ORDERED: Ondansetron 4 MG Tab.DIS PO ONE (18:24)
--- NOTE | 2018-09-17 18:34 | EDM.PDOC ---
ED HPI GENERAL MEDICAL PROBLEM - General Chief Complaint: Headache Stated Complaint: HEADACHE Time Seen by Provider: 09/17/18 17:45 Source of Information: Reports: Patient History Limitations: Reports: No Limitations - History of Present Illness INITIAL COMMENTS - FREE TEXT/NARRATIVE: Patient is a 52-year-old female who presents to the ED complaining of migraine headache. Headache gradually started with increasing in severity. States pain is the right side of her head.. Described as a throbbing sharp sensation that waxes and wanes in intensity. Headache is constant mild in nature currently. Gradual onset. Consistent with previous headaches. She has been experiencing more headaches recently about 5 headaches per week for the past few weeks. She is scheduled to see a pain specialist in [place] for Botox. Denies any recent trauma, fever, vision changes, neck stiffness, chest pain, shortness of breath, nausea/vomiting, abdominal pain, numbness or tingling to extremities, rash, or any additional complaints. Headache Pain Score (Numeric/FACES): 9 - Related Data Allergies Allergy/AdvReac Type Severity Reaction Status Date / Time Penicillins Allergy Rash Verified 09/17/18 17:13 propoxyphene napsylate Allergy Rash Verified 09/17/18 17:13 [From Darvocet-N] Sulfa (Sulfonamide Allergy Rash Verified 09/17/18 17:13 Antibiotics) sulfamethoxazole Allergy Rash Verified 09/17/18 17:13 [From Bactrim] trimethoprim [From Bactrim] Allergy Rash Verified 09/17/18 17:13 Home Meds: Home Meds Ondansetron [Zofran] 4 mg BUCCAL Q6H PRN #6 tab 01/03/18 [Rx] Lisinopril 10 mg PO DAILY 05/24/18 [History] Naproxen 500 mg PO BID 05/24/18 [History] Past Medical History HEENT History: Reports: Impaired Vision Other HEENT History: Wears eyeglasses. 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 - Physical Exam Exam: See Below Exam Limited By: No Limitations General Appearance: Alert, WD/WN, No Apparent Distress Ears: Hearing Grossly Normal Nose: Normal Inspection Throat/Mouth: Normal Voice, No Airway Compromise Head Exam: Atraumatic, Normocephalic Neck: Normal Inspection, Supple, Non-Tender, Full Range of Motion. No: Lymphadenopathy (L), Lymphadenopathy (R) Respiratory/Chest: No Respiratory Distress, Lungs Clear, Normal Breath Sounds Cardiovascular: Normal Peripheral Pulses, Regular Rate, Rhythm, No Murmur Neuro Exam (Abbreviated): Alert, Oriented, CN II-XII Intact, Normal Cognition, Normal Gait, No Motor/Sensory Deficits, Other (No facial droop, slurred speech, or tongue deviation. No weakness discrepancy as to the upper and lower extremities.) Back Exam: Normal Inspection Extremities: Normal Inspection Psychiatric: Normal Affect, Normal Mood Skin Exam: Warm, Dry Course - Vital Signs Last Recorded V/S: Last Vital Signs Temp 97.5 F 09/17/18 17:10 Pulse 82 09/17/18 17:10 Resp 16 09/17/18 17:10 BP 121/74 09/17/18 17:10 Pulse Ox 99 09/17/18 17:10 - Orders/Labs/Meds Meds: Medications Discontinued Medications Generic Name Dose Route Start Last Admin Trade Name Isaíasq PRN Reason Stop Dose Admin Diphenhydramine HCl 50 mg 09/17/18 18:24 09/17/18 18:32 Benadryl IM 09/17/18 18:25 50 mg ONETIME ONE Administration Haloperidol Lactate 5 mg 09/17/18 18:24 09/17/18 18:33 Haldol IM 09/17/18 18:25 5 mg ONETIME ONE Administration Ketorolac Tromethamine 30 mg 09/17/18 18:24 09/17/18 18:32 Toradol IM 09/17/18 18:25 30 mg ONETIME ONE Administration Ondansetron HCl 4 mg 09/17/18 18:24 09/17/18 18:32 Zofran Odt PO 01/19/19 18:25 4 mg ONETIME ONE Administration - Re-Assessments/Exams Free Text/Narrative Re-Assessment/Exam: Ordered Haldol 5 mg IM, Toradol 30 mg IM, Benadryl 50 mg IM, and Zofran ODT. 1930, patients symptoms have resolved. She is ready to be discharged home. Discharge instructions as documented. Departure - Departure Time of Disposition: 19:45 Disposition: Home, Self-Care 01 Condition: Good Clinical Impression: Migraine - Discharge Information Instructions: Migraine Headache, [id number] Referrals: Simona Bateman PA-C [Primary Care Provider] - Forms: ED Department Discharge Additional Instructions: Do not drive this evening since receiving a sedative medication. Go home and find a dark room to sleep in with no distractions. See your pcp this coming week for reevaluation. Return to the E.D. for any new or worsening symptoms.
== END 2018-09-17 19:50 | disposition home or self-care (01) ==
LOC: JD.ED 16:56
DX: G43.909 Migraine, unspecified, not intractable, without status migrainosus (principal); I10 Essential (primary) hypertension; Z88.0 Allergy status to penicillin; Z88.2 Allergy status to sulfonamides; Z79.899 Other long term (current) drug therapy; Z88.8 Allergy status to other drugs, medicaments and biological substances
CPT/HCPCS: 96372; 99284; A9270; J1200; J1630; J1885

== ENCOUNTER 2018-10-06 10:02 | Day surgery (SDC) | payer MEDICAID ==
[2018-10-06] MEDS ORDERED: HYDROmorphone 1 MG/ML Syringe IVPUSH ONE ×2 (10:19→12:33)
[2018-10-06] MEDS ORDERED: Ondansetron 4 MG/2 ML SDV IVPUSH ONE (10:19)
[2018-10-06] MEDS ORDERED: Sodium Chloride 0.9% 10 ML Syringe FLUSH PRN (10:19)
--- NOTE | 2018-10-06 10:21 | EDM.PDOC ---
ED HPI GENERAL MEDICAL PROBLEM - General Chief Complaint: Abdominal Pain Stated Complaint: ABDOMINAL PAIN Time Seen by Provider: 10/06/18 10:13 Source of Information: Reports: Patient, RN Notes Reviewed - History of Present Illness INITIAL COMMENTS - FREE TEXT/NARRATIVE: 53-year-old female comes in with right-sided abdominal pain, nausea, vomiting. That'll started early this morning about 6 hours ago. She has had repetitive vomiting, still feels very nauseated with crampy right-sided abdominal discomfort. There's been no diarrhea. No fever or chills. No voiding symptomatology. She does have history of prior appendectomy. She is not aware of prior gallbladder surgery. Right Middle Abdomen Pain Score (Numeric/FACES): 10 - Related Data Allergies Allergy/AdvReac Type Severity Reaction Status Date / Time Penicillins Allergy Rash Verified 10/06/18 10:11 propoxyphene napsylate Allergy Rash Verified 10/06/18 10:11 [From Darvocet-N] Sulfa (Sulfonamide Allergy Rash Verified 10/06/18 10:11 Antibiotics) sulfamethoxazole Allergy Rash Verified 10/06/18 10:11 [From Bactrim] trimethoprim [From Bactrim] Allergy Rash Verified 10/06/18 10:11 Home Meds: Home Meds Ondansetron [Zofran] 4 mg BUCCAL Q6H PRN #6 tab 01/03/18 [Rx] Lisinopril 10 mg PO DAILY 05/24/18 [History] Naproxen 500 mg PO BID 05/24/18 [History] Past Medical History HEENT History: Reports: Impaired Vision Other HEENT History: Wears eyeglasses. 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: Musculoskeletal History: Reports: Back Pain, Chronic Neurological History: Reports: Migraines Psychiatric History: Reports: Depression - Past Surgical History GI Surgical History: Reports: Appendectomy Female Surgical History: Reports: Hysterectomy Social & Family History - Family History Family Medical History: Noncontributory - Tobacco Use Smoking Status *Q: Former Smoker Used Tobacco, but Quit: Yes Month/Year Tobacco Last Used: does not know - Caffeine Use Caffeine Use: Reports: Soda - Recreational Drug Use Recreational Drug Use: No - Living Situation & Occupation Living situation: Reports: Single Occupation: Employed ED ROS GENERAL - Review of Systems Review Of Systems: See Below Constitutional: Denies: Fever, Chills, Diaphoresis HEENT: Reports: No Symptoms Respiratory: Denies: Shortness of Breath, Pleuritic Chest Pain, Cough Cardiovascular: Denies: Chest Pain GI/Abdominal: Reports: Abdominal Pain, Nausea, Vomiting. Denies: Hematochezia, Melena Musculoskeletal: Denies: Back Pain Skin: Reports: No Symptoms Neurological: Reports: Dizziness ED EXAM, GI/ABD - Physical Exam Exam: See Below General Appearance: Alert, Moderate Distress Eyes: Bilateral: Normal Appearance Throat/Mouth: Normal Inspection, Normal Oropharynx Head: Atraumatic. No: Facial Swelling Neck: Supple, Full Range of Motion Respiratory/Chest: No Respiratory Distress, Lungs Clear, Normal Breath Sounds Cardiovascular: Regular Rate, Rhythm GI/Abdominal Exam: Tender (Markedly tenderness right upper mid, right upper and mid abdomen). No: Guarding, Rebound Back Exam: CVA Tenderness (R) Extremities: Normal Inspection. No: Pedal Edema, Leg Pain Neurological: Alert, Oriented, No Motor/Sensory Deficits Skin Exam: Warm, Dry, Normal Color Course - Vital Signs Last Recorded V/S: Last Vital Signs Temp 97.9 F 10/06/18 14:11 Pulse 70 10/06/18 14:11 Resp 16 10/06/18 14:11 BP 117/70 10/06/18 14:11 Pulse Ox 97 10/06/18 14:11 - Orders/Labs/Meds Orders: Active Orders 24 hr Category Date Time Status Patient Status [ADT] Stat ADT 10/06/18 14:15 Active Peripheral IV Care [RC] . DIRECTED Care 10/06/18 10:20 Active Ketorolac [Toradol] Med 10/06/18 11:30 Active 30 mg IVPUSH ONETIME Sodium Chloride 0.9% [Normal Saline] 1,000 ml Med 10/06/18 10:30 Active IV ONETIME Sodium Chloride 0.9% [Normal Saline] 1,000 ml Med 10/06/18 13:00 Active IV ONETIME Sodium Chloride 0.9% [Saline Flush] Med 10/06/18 10:19 Active 10 ml FLUSH ASDIRECTED PRN Peripheral IV Insertion Adult [OM.PC] Stat Oth 10/06/18 10:19 Ordered Schedule Procedure [COMM] Stat Oth 10/06/18 14:15 Ordered Medication Orders Sodium Chloride (Normal Saline) 1,000 mls @ 999 mls/hr IV ONETIME LADONNA Last Admin: 10/06/18 10:27 Dose: 999 mls/hr Sodium Chloride (Normal Saline) 1,000 mls @ 999 mls/hr IV ONETIME L[facility]NA Ketorolac Tromethamine (Toradol) 30 mg IVPUSH ONETIME [facility]NA Last Admin: 10/06/18 11:35 Dose: 30 mg Sodium Chloride (Saline Flush) 10 ml FLUSH ASDIRECTED PRN PRN Reason: Keep Vein Open Last Admin: 10/06/18 10:20 Dose: 10 ml Labs: Laboratory Tests 10/06/18 10/06/18 10/06/18 Range/Units 10:15 10:15 10:15 WBC 12.39 H (3.98-10.04) K/mm3 RBC 4.74 (3.98-5.22) M/mm3 Hgb 13.6 (11.2-15.7) gm/L Hct 41.1 (34.1-44.9) % MCV 86.7 (79.4-94.8) fl MCH 28.7 (25.6-32.2) pg MCHC 33.1 (32.2-35.5) g/dl RDW Std Deviation 40.1 (36.4-46.3) fL Plt Count 157 L (182-369) K/mm3 MPV 12.2 (9.4-12.3) fl Neut % (Auto) 84.2 H (34.0-71.1) % Lymph % (Auto) 12.0 L (19.3-51.7) % [place] % (Auto) 3.2 L (4.7-12.5) % Eos % (Auto) 0.2 L (0.7-5.8) Baso % (Auto) 0.2 (0.1-1.2) % Neut # (Auto) 10.44 H (1.56-6.13) K/mm3 Lymph # (Auto) 1.49 (1.18-3.74) K/mm3 [place] # (Auto) 0.40 H (0.24-0.36) K/mm3 Eos # (Auto) 0.02 L (0.04-0.36) K/mm3 Baso # (Auto) 0.02 (0.01-0.08) K/mm3 Sodium 143 (136-145) mEq/L Potassium 3.5 (3.5-5.1) mEq/L Chloride 108 H (98-107) mEq/L Carbon Dioxide 20 L (21-32) mEq/L Anion Gap 18.5 H (5-15) BUN 18 (7-18) mg/dL Creatinine 0.8 (0.55-1.02) mg/dL Est Cr Clr Drug Dosing 74.86 mL/min Estimated GFR (MDRD) > 60 (>60) mL/min BUN/Creatinine Ratio 22.5 H (14-18) Glucose 126 H (74-106) mg/dL Calcium 9.2 (8.5-10.1) mg/dL Total Bilirubin 0.4 (0.2-1.0) mg/dL AST 15 (15-37) U/L ALT 23 (14-59) U/L Alkaline Phosphatase 66 (46-116) U/L C-Reactive Protein 0.2 (<1.0) mg/dL Total Protein 7.9 (6.4-8.2) g/dl Albumin 4.2 (3.4-5.0) g/dl Globulin 3.7 gm/dL Albumin/Globulin Ratio 1.1 (1-2) Lipase (73-393) U/L 10/06/18 Range/Units 10:15 WBC (3.98-10.04) K/mm3 RBC (3.98-5.22) M/mm3 Hgb (11.2-15.7) gm/L Hct (34.1-44.9) % MCV (79.4-94.8) fl MCH (25.6-32.2) pg MCHC (32.2-35.5) g/dl RDW Std Deviation (36.4-46.3) fL Plt Count (182-369) K/mm3 MPV (9.4-12.3) fl Neut % (Auto) (34.0-71.1) % Lymph % (Auto) (19.3-51.7) % [place] % (Auto) (4.7-12.5) % Eos % (Auto) (0.7-5.8) Baso % (Auto) (0.1-1.2) % Neut # (Auto) (1.56-6.13) K/mm3 Lymph # (Auto) (1.18-3.74) K/mm3 [place] # (Auto) (0.24-0.36) K/mm3 Eos # (Auto) (0.04-0.36) K/mm3 Baso # (Auto) (0.01-0.08) K/mm3 Sodium (136-145) mEq/L Potassium (3.5-5.1) mEq/L Chloride (98-107) mEq/L Carbon Dioxide (21-32) mEq/L Anion Gap (5-15) BUN (7-18) mg/dL Creatinine (0.55-1.02) mg/dL Est Cr Clr Drug Dosing mL/min Estimated GFR (MDRD) (>60) mL/min BUN/Creatinine Ratio (14-18) Glucose (74-106) mg/dL Calcium (8.5-10.1) mg/dL Total Bilirubin (0.2-1.0) mg/dL AST (15-37) U/L ALT (14-59) U/L Alkaline Phosphatase (46-116) U/L C-Reactive Protein (<1.0) mg/dL Total Protein (6.4-8.2) g/dl Albumin (3.4-5.0) g/dl Globulin gm/dL Albumin/Globulin Ratio (1-2) Lipase 73 (73-393) U/L Meds: Medications Generic Name Dose Route Start Last Admin Trade Name Freq PRN Reason Stop Dose Admin Sodium Chloride 1,000 mls @ 999 mls/hr 10/06/18 10:30 10/06/18 10:27 Normal Saline IV 999 mls/hr ONETIME LADONNA Administration Sodium Chloride 1,000 mls @ 999 mls/hr 10/06/18 13:00 Normal Saline IV ONETIME LADONNA Ketorolac Tromethamine 30 mg 10/06/18 11:30 10/06/18 11:35 Toradol IVPUSH 30 mg ONETIME LADONNA Administration Sodium Chloride 10 ml 10/06/18 10:19 10/06/18 10:20 Saline Flush FLUSH 10 ml ASDIRECTED PRN Administration Keep Vein Open Discontinued Medications Generic Name Dose Route Start Last Admin Trade Name Freq PRN Reason Stop Dose Admin Bupivacaine HCl/Epinephrine Bitart Confirm 10/06/18 14:10 Marcaine 0.5%/Epinephrine 1:200,000 Administered 10/06/18 14:11 Dose 50 ml .ROUTE .STK-MED ONE Cefazolin Sodium Confirm 10/06/18 14:49 Ancef Administered 10/06/18 14:50 Dose 2 gm .ROUTE .STK-MED ONE Dexamethasone Confirm 10/06/18 14:25 Dexamethasone Administered 10/06/18 14:26 Dose 8 mg .ROUTE .STK-MED ONE Fentanyl Confirm 10/06/18 14:19 Sublimaze Administered 10/06/18 14:20 Dose 250 mcg .ROUTE .STK-MED ONE Hydromorphone HCl 1 mg 10/06/18 10:19 10/06/18 10:25 Dilaudid IVPUSH 10/06/18 10:20 1 mg ONETIME ONE Administration Hydromorphone HCl 0.5 mg 10/06/18 12:33 10/06/18 12:35 Dilaudid IVPUSH 10/06/18 12:34 0.5 mg ONETIME ONE Administration Hydromorphone HCl Confirm 10/06/18 14:44 Dilaudid Administered 10/06/18 14:45 Dose 0.5 mg .ROUTE .STK-MED ONE Hydromorphone HCl Confirm 10/06/18 14:49 Dilaudid Administered 10/06/18 14:50 Dose 0.5 mg .ROUTE .STK-MED ONE Lidocaine HCl Confirm 10/06/18 14:25 Xylocaine-Mpf 1% Administered 10/06/18 14:26 Dose 4 mls @ as directed .ROUTE .STK-MED ONE Lidocaine/Epinephrine Confirm 10/06/18 14:10 Xylocaine 1% With Epinephrine 1:100,000 Administered 10/06/18 14:11 Dose 40 ml .ROUTE .STK-MED ONE Metoclopramide HCl 5 mg 10/06/18 11:27 10/06/18 11:35 Reglan IVPUSH 10/06/18 11:28 5 mg ONETIME ONE Administration Midazolam HCl Confirm 10/06/18 14:19 Versed 1 Mg/Ml Administered 10/06/18 14:20 Dose 2 mg .ROUTE .STK-MED ONE Ondansetron HCl 4 mg 10/06/18 10:19 10/06/18 10:29 Zofran IVPUSH 10/06/18 10:20 4 mg ONETIME ONE Administration Ondansetron HCl Confirm 10/06/18 14:25 Zofran Administered 10/06/18 14:26 Dose 4 mg .ROUTE .STK-MED ONE Propofol Confirm 10/06/18 14:18 Diprivan 20 Ml Administered 10/06/18 14:19 Dose 200 mg .ROUTE .STK-MED ONE Rocuronium [place] Confirm 10/06/18 14:25 Zemuron Administered 10/06/18 14:26 Dose 50 mg .ROUTE .STK-MED ONE Succinylcholine Chloride Confirm 10/06/18 14:25 Succinylcholine In Ns Pf Administered 10/06/18 14:26 Dose 100 mg .ROUTE .STK-MED ONE - Re-Assessments/Exams Free Text/Narrative Re-Assessment/Exam: 10/06/18 12:35 White blood count mildly elevated labs are otherwise relatively normal, she is no longer vomiting but still having moderate pain right upper quadrant quite severe tenderness right upper abdomen. She is not aware if she's had prior ultrasound looking of her gallbladder or not, she has not eaten this morning we' ll get ultrasound of gallbladder upper abdomen at this time. 10/06/18 1322. Ultrasound shows multiple stones in the gallbladder there is some wall thickening. Still awaiting official radiology report but have contacted , General Surgeon distribution manager. She is here to see patient with plan for admission, probable surgery later this afternoon. Departure - Departure Time of Disposition: 13:30 Disposition: DC/Tfer to [facility] Condition: Fair Clinical Impression: Cholecystitis - Discharge Information ED Communication - Discussed Case With (1) Discussed Case With (1): Admitting Provider (Dr Arriaga, decision to admit at about 13:35.) - My Orders Last 24 Hours: My Active Orders 10/06/18 10:19 Sodium Chloride 0.9% [Saline Flush] 10 ml FLUSH ASDIRECTED PRN Peripheral IV Insertion Adult [OM.PC] Stat 10/06/18 10:20 Peripheral IV Care [RC] . DIRECTED 10/06/18 10:30 Sodium Chloride 0.9% [Normal Saline] 1,000 ml IV ONETIME 10/06/18 11:30 Ketorolac [Toradol] 30 mg IVPUSH ONETIME 10/06/18 13:00 Sodium Chloride 0.9% [Normal Saline] 1,000 ml IV ONETIME - Assessment/Plan Last 24 Hours: My Active Orders 10/06/18 10:19 Sodium Chloride 0.9% [Saline Flush] 10 ml FLUSH ASDIRECTED PRN Peripheral IV Insertion Adult [OM.PC] Stat 10/06/18 10:20 Peripheral IV Care [RC] . DIRECTED 10/06/18 10:30 Sodium Chloride 0.9% [Normal Saline] 1,000 ml IV ONETIME 10/06/18 11:30 Ketorolac [Toradol] 30 mg IVPUSH ONETIME 10/06/18 13:00 Sodium Chloride 0.9% [Normal Saline] 1,000 ml IV ONETIME
[2018-10-06] MEDS ORDERED: Sodium Chloride 0.9% 1,000 ML IV SCH ×2 (10:30→13:00)
[2018-10-06] MEDS ORDERED: Metoclopramide 10 MG/2 ML SDV IVPUSH ONE (11:27)
[2018-10-06] MEDS ORDERED: Ketorolac 30 MG/ML SDV IVPUSH SCH (11:30)
--- NOTE | 2018-10-06 13:17 | CR ---
Abdomen: Supine and upright views of the abdomen were obtained. Comparison: Prior CT abdomen and pelvis exam of 01/03/18 and prior abdominal x-ray of 10/04/16. Stable bone island is noted within the left iliac bone. Bony structures otherwise are within normal limits for the patient's age. Bowel gas pattern is normal. No abnormal calcifications or discrete soft tissue abnormality is seen. Incidental phleboliths are seen within the pelvis. Impression: 1. Incidental findings. Nothing acute is identified. Diagnostic code #2
--- NOTE | 2018-10-06 13:57 | US ---
Limited abdominal ultrasound: Multiple real-time images of the upper right abdomen were obtained. Comparison: No prior abdominal ultrasound, previous noncontrast CT exam of 01/03/18. Liver shows no focal parenchymal abnormality but is not optimally seen. Numerous gallstones are seen within the gallbladder. Gallbladder wall is mildly thickened. No pericholecystic fluid is seen. No biliary duct dilatation is seen. Right kidney shows no hydronephrosis or mass and has a length of 11.1 cm. Pancreas is poorly seen. Visualized portions of the pancreas appear within normal limits. Portal vein shows normal hepatopedal flow. Impression: 1. Multiple gallstones with mild gallbladder wall thickening. No pericholecystic fluid or biliary duct dilatation is seen. 2. Other portions of the abdomen are not optimally seen but no additional abnormality is appreciated. Diagnostic code #3
--- NOTE | 2018-10-06 14:11 | PCM.PREANE ---
Preanesthetic Assessment - Anesthesia/Transfusion/Family Hx Anesthesia History: Prior Anesthesia Without Reaction Family History of Anesthesia Reaction: No Transfusion History: No Prior Transfusion(s) - Review of Systems General: Malaise Pulmonary: No Symptoms Cardiovascular: No Symptoms Gastrointestinal: Abdominal Pain, Nausea, Vomiting Neurological: Tingling (hands on and off) Other: Reports: Easy Bruising - Physical Assessment NPO Status Date: 10/05/18 NPO Status Time: 18:00 Pulse: 70 O2 Sat by Pulse Oximetry: 97 Respiratory Rate: 16 Blood Pressure: 117/70 Temperature: 36.6 C Vital Signs: Last Vital Signs Temp 36.6 C 10/06/18 12:40 Pulse 80 10/06/18 12:40 Resp 16 10/06/18 12:40 BP 123/70 10/06/18 12:40 Pulse Ox 97 10/06/18 12:40 Height: 1.65 m Weight: 74.389 kg ASA Class: 2 Mental Status: Alert & Oriented x3 Airway Class: Mallampati = 2 Dentition: Reports: Normal Dentition, [place](s) Thyro-Mental Finger Breadths: 3 Mouth Opening Finger Breadths: 2 ROM/Head Extension: Full Lungs: Clear to Auscultation, Normal Respiratory Effort Cardiovascular: Regular Rate, Regular Rhythm - Lab Values: Laboratory Last Values WBC 12.39 K/mm3 (3.98-10.04) H 10/06/18 10:15 RBC 4.74 M/mm3 (3.98-5.22) 10/06/18 10:15 Hgb 13.6 gm/L (11.2-15.7) 10/06/18 10:15 Hct 41.1 % (34.1-44.9) 10/06/18 10:15 MCV 86.7 fl (79.4-94.8) 10/06/18 10:15 MCH 28.7 pg (25.6-32.2) 10/06/18 10:15 MCHC 33.1 g/dl (32.2-35.5) 10/06/18 10:15 RDW Std Deviation 40.1 fL (36.4-46.3) 10/06/18 10:15 Plt Count 157 K/mm3 (182-369) L 10/06/18 10:15 MPV 12.2 fl (9.4-12.3) 10/06/18 10:15 Neut % (Auto) 84.2 % (34.0-71.1) H 10/06/18 10:15 Lymph % (Auto) 12.0 % (19.3-51.7) L 10/06/18 10:15 [place] % (Auto) 3.2 % (4.7-12.5) L 10/06/18 10:15 Eos % (Auto) 0.2 (0.7-5.8) L 10/06/18 10:15 Baso % (Auto) 0.2 % (0.1-1.2) 10/06/18 10:15 Neut # (Auto) 10.44 K/mm3 (1.56-6.13) H 10/06/18 10:15 Lymph # (Auto) 1.49 K/mm3 (1.18-3.74) 10/06/18 10:15 [place] # (Auto) 0.40 K/mm3 (0.24-0.36) H 10/06/18 10:15 Eos # (Auto) 0.02 K/mm3 (0.04-0.36) L 10/06/18 10:15 Baso # (Auto) 0.02 K/mm3 (0.01-0.08) 10/06/18 10:15 Sodium 143 mEq/L (136-145) 10/06/18 10:15 Potassium 3.5 mEq/L (3.5-5.1) 10/06/18 10:15 Chloride 108 mEq/L (98-107) H 10/06/18 10:15 Carbon Dioxide 20 mEq/L (21-32) L 10/06/18 10:15 Anion Gap 18.5 (5-15) H 10/06/18 10:15 BUN 18 mg/dL (7-18) 10/06/18 10:15 Creatinine 0.8 mg/dL (0.55-1.02) 10/06/18 10:15 Est Cr Clr Drug Dosing 74.86 mL/min 10/06/18 10:15 Estimated GFR (MDRD) > 60 mL/min (>60) 10/06/18 10:15 BUN/Creatinine Ratio 22.5 (14-18) H 10/06/18 10:15 Glucose 126 mg/dL (74-106) H 10/06/18 10:15 Calcium 9.2 mg/dL (8.5-10.1) 10/06/18 10:15 Total Bilirubin 0.4 mg/dL (0.2-1.0) 10/06/18 10:15 AST 15 U/L (15-37) 10/06/18 10:15 ALT 23 U/L (14-59) 10/06/18 10:15 Alkaline Phosphatase 66 U/L (46-116) 10/06/18 10:15 C-Reactive Protein 0.2 mg/dL (<1.0) 10/06/18 10:15 Total Protein 7.9 g/dl (6.4-8.2) 10/06/18 10:15 Albumin 4.2 g/dl (3.4-5.0) 10/06/18 10:15 Globulin 3.7 gm/dL 10/06/18 10:15 Albumin/Globulin Ratio 1.1 (1-2) 10/06/18 10:15 Lipase 73 U/L (73-393) 10/06/18 10:15 - Allergies Allergies/Adverse Reactions: Allergies Allergy/AdvReac Type Severity Reaction Status Date / Time Penicillins Allergy Rash Verified 10/06/18 10:11 propoxyphene napsylate Allergy Rash Verified 10/06/18 10:11 [From Darvocet-N] Sulfa (Sulfonamide Allergy Rash Verified 10/06/18 10:11 Antibiotics) sulfamethoxazole Allergy Rash Verified 10/06/18 10:11 [From Bactrim] trimethoprim [From Bactrim] Allergy Rash Verified 10/06/18 10:11 - Blood Blood Available: No Product(s) Available: None - Anesthesia Plan Pre-Op Medication Ordered: None - Acknowledgements Anesthesia Type Planned: General Anesthesia Pt an Appropriate Candidate for the Planned Anesthesia: Yes Alternatives and Risks of Anesthesia Discussed w Pt/Guardian: Yes Pt/Guardian Understands and Agrees with Anesthesia Plan: Yes PreAnesthesia Questionnaire HEENT History: Reports: Impaired Vision Other HEENT History: Wears eyeglasses. 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 History: Reports: Musculoskeletal History: Reports: Back Pain, Chronic Neurological History: Reports: Migraines Psychiatric History: Reports: Depression - Past Surgical History GI Surgical History: Reports: Appendectomy Female Surgical History: Reports: Hysterectomy - SUBSTANCE USE Smoking Status *Q: Former Smoker Tobacco Use Within Last Twelve Months: No Second Hand Smoke Exposure: Yes Days Per Week of Alcohol Use: 0 Number of Drinks Per Day: 0 Total Drinks Per Week: 0 Recreational Drug Use History: No - HOME MEDS Home Medications: Home Meds Ondansetron [Zofran] 4 mg BUCCAL Q6H PRN #6 tab 01/03/18 [Rx] Lisinopril 10 mg PO DAILY 05/24/18 [History] Naproxen 500 mg PO BID 05/24/18 [History] - CURRENT (IN HOUSE) MEDS Current Meds: Current Medications Sodium Chloride (Normal Saline) 1,000 mls @ 999 mls/hr IV ONETIME [facility] Last Admin: 10/06/18 10:27 Dose: 999 mls/hr Sodium Chloride (Normal Saline) 1,000 mls @ 999 mls/hr IV ONETIME LADONNA Ketorolac Tromethamine (Toradol) 30 mg IVPUSH ONETIME [facility] Last Admin: 10/06/18 11:35 Dose: 30 mg Sodium Chloride (Saline Flush) 10 ml FLUSH ASDIRECTED PRN PRN Reason: Keep Vein Open Last Admin: 10/06/18 10:20 Dose: 10 ml Discontinued Medications Hydromorphone HCl (Dilaudid) 1 mg IVPUSH ONETIME ONE Stop: 10/06/18 10:20 Last Admin: 10/06/18 10:25 Dose: 1 mg Hydromorphone HCl (Dilaudid) 0.5 mg IVPUSH ONETIME ONE Stop: 10/06/18 12:34 Last Admin: 10/06/18 12:35 Dose: 0.5 mg Metoclopramide HCl (Reglan) 5 mg IVPUSH ONETIME ONE Stop: 10/06/18 11:28 Last Admin: 10/06/18 11:35 Dose: 5 mg Ondansetron HCl (Zofran) 4 mg IVPUSH ONETIME ONE Stop: 10/06/18 10:20 Last Admin: 10/06/18 10:29 Dose: 4 mg
[2018-10-06] MEDS ORDERED: Propofol 200 MG/20 ML SDV ONE (14:18)
[2018-10-06] MEDS ORDERED: Midazolam 1 MG/ML 2 ML SDV ONE (14:19)
[2018-10-06] MEDS ORDERED: fentaNYL 250 MCG/5 ML SDV ONE (14:19)
[2018-10-06] MEDS ORDERED: Dexamethasone 4 MG/ML SDV ONE (14:25)
[2018-10-06] MEDS ORDERED: Rocuronium 50 MG/5 ML Vial ONE (14:25)
[2018-10-06] MEDS ORDERED: Succinylcholine/Normal Saline 100 MG/5 ML Syringe ONE (14:25)
[2018-10-06] MEDS ORDERED: Lidocaine 1% 4 ML ONE (14:25)
[2018-10-06] MEDS ORDERED: Ondansetron 4 MG/2 ML SDV ONE (14:25)
--- NOTE | 2018-10-06 14:30 | PCM.HP ---
H&P History of Present Illness - General Date of Service: 10/06/18 - History of Present Illness Initial Comments - Free Text/Narative: The patient is a 53-year-old lady presents emergency department with a 10 hour episode of right upper quadrant pain. She is is associated with nausea and nonbloody, nonbilious emesis. She is having episodes of pain every other day. She has been to the emergency department 3 times in the last 2 months for similar symptoms. On evaluation today, she is found to have an elevated white blood cell count, as well as gallbladder wall thickening. She does not have any elevation in bilirubin or liver enzymes Right Middle Abdomen Pain Score (Numeric/FACES): 10 - Related Data Allergies/Adverse Reactions: Allergies Allergy/AdvReac Type Severity Reaction Status Date / Time Penicillins Allergy Rash Verified 10/06/18 10:11 propoxyphene napsylate Allergy Rash Verified 10/06/18 10:11 [From Darvocet-N] Sulfa (Sulfonamide Allergy Rash Verified 10/06/18 10:11 Antibiotics) sulfamethoxazole Allergy Rash Verified 10/06/18 10:11 [From Bactrim] trimethoprim [From Bactrim] Allergy Rash Verified 10/06/18 10:11 Home Medications: Home Meds Ondansetron [Zofran] 4 mg BUCCAL Q6H PRN #6 tab 01/03/18 [Rx] Lisinopril 10 mg PO DAILY 05/24/18 [History] Naproxen 500 mg PO BID 05/24/18 [History] Past Medical History HEENT History: Reports: Impaired Vision Other HEENT History: Wears eyeglasses. Cardiovascular History: Reports: Hypertension Respiratory History: Reports: Pneumonia, Recurrent Genitourinary History: Reports: UTI, Recurrent [employer] History: Reports: Musculoskeletal History: Reports: Back Pain, Chronic Neurological History: Reports: Migraines Psychiatric History: Reports: Depression - Past Surgical History GI Surgical History: Reports: Appendectomy Female Surgical History: Reports: Hysterectomy Social & Family History - Family History HEENT: Reports: None Cardiac: Reports: None Respiratory: Reports: None GI: Reports: None : Reports: None - Tobacco Use Smoking Status *Q: Former Smoker Used Tobacco, but Quit: Yes Month/Year Tobacco Last Used: does not know Second Hand Smoke Exposure: Yes - Caffeine Use Caffeine Use: Reports: Soda - Alcohol Use Days Per Week of Alcohol Use: 0 Number of Drinks Per Day: 0 Total Drinks Per Week: 0 - Recreational Drug Use Recreational Drug Use: No - Living Situation & Occupation Living situation: Reports: Single Occupation: Employed H&P Review of Systems - Review of Systems: Review Of Systems: See Below General: Reports: No Symptoms. Denies: Fever, Chills HEENT: Reports: No Symptoms Pulmonary: Reports: No Symptoms Cardiovascular: Reports: No Symptoms Gastrointestinal: Reports: Abdominal Pain, Vomiting Genitourinary: Reports: No Symptoms Musculoskeletal: Reports: No Symptoms Skin: Reports: No Symptoms Psychiatric: Reports: No Symptoms Neurological: Reports: No Symptoms Exam - Exam Exam: See Below - Vital Signs Vital Signs: Last Vital Signs Temp 36.6 C 10/06/18 14:11 Pulse 70 10/06/18 14:11 Resp 16 10/06/18 14:11 BP 117/70 10/06/18 14:11 Pulse Ox 97 10/06/18 14:11 Weight: 74.389 kg - Exam Quality Assessment: No: Supplemental Oxygen General: Alert, Oriented HEENT: Conjunctiva Clear, EOMI Neck: Supple Lungs: Clear to Auscultation, Normal Respiratory Effort Cardiovascular: Regular Rate, Regular Rhythm GI/Abdominal Exam: Soft, Distended (mild), Tender (diffusely, most in RUQ) Extremities: Normal Inspection Peripheral Pulses: 2+: Dorsalis Pedis (L), Dorsalis Pedis (R) Skin: Warm, Dry, Intact - Patient Data Lab Results Last 24 hrs: Laboratory Results - last 24 hr 10/06/18 10/06/18 10/06/18 Range/Units 10:15 10:15 10:15 WBC 12.39 H (3.98-10.04) K/mm3 RBC 4.74 (3.98-5.22) M/mm3 Hgb 13.6 (11.2-15.7) gm/L Hct 41.1 (34.1-44.9) % MCV 86.7 (79.4-94.8) fl MCH 28.7 (25.6-32.2) pg MCHC 33.1 (32.2-35.5) g/dl RDW Std Deviation 40.1 (36.4-46.3) fL Plt Count 157 L (182-369) K/mm3 MPV 12.2 (9.4-12.3) fl Neut % (Auto) 84.2 H (34.0-71.1) % Lymph % (Auto) 12.0 L (19.3-51.7) % [place] % (Auto) 3.2 L (4.7-12.5) % Eos % (Auto) 0.2 L (0.7-5.8) Baso % (Auto) 0.2 (0.1-1.2) % Neut # (Auto) 10.44 H (1.56-6.13) K/mm3 Lymph # (Auto) 1.49 (1.18-3.74) K/mm3 [place] # (Auto) 0.40 H (0.24-0.36) K/mm3 Eos # (Auto) 0.02 L (0.04-0.36) K/mm3 Baso # (Auto) 0.02 (0.01-0.08) K/mm3 Sodium 143 (136-145) mEq/L Potassium 3.5 (3.5-5.1) mEq/L Chloride 108 H (98-107) mEq/L Carbon Dioxide 20 L (21-32) mEq/L Anion Gap 18.5 H (5-15) BUN 18 (7-18) mg/dL Creatinine 0.8 (0.55-1.02) mg/dL Est Cr Clr Drug Dosing 74.86 mL/min Estimated GFR (MDRD) > 60 (>60) mL/min BUN/Creatinine Ratio 22.5 H (14-18) Glucose 126 H (74-106) mg/dL Calcium 9.2 (8.5-10.1) mg/dL Total Bilirubin 0.4 (0.2-1.0) mg/dL AST 15 (15-37) U/L ALT 23 (14-59) U/L Alkaline Phosphatase 66 (46-116) U/L C-Reactive Protein 0.2 (<1.0) mg/dL Total Protein 7.9 (6.4-8.2) g/dl Albumin 4.2 (3.4-5.0) g/dl Globulin 3.7 gm/dL Albumin/Globulin Ratio 1.1 (1-2) Lipase (73-393) U/L 02/07/19 Range/Units 10:15 WBC (3.98-10.04) K/mm3 RBC (3.98-5.22) M/mm3 Hgb (11.2-15.7) gm/L Hct (34.1-44.9) % MCV (79.4-94.8) fl MCH (25.6-32.2) pg MCHC (32.2-35.5) g/dl RDW Std Deviation (36.4-46.3) fL Plt Count (182-369) K/mm3 MPV (9.4-12.3) fl Neut % (Auto) (34.0-71.1) % Lymph % (Auto) (19.3-51.7) % [place] % (Auto) (4.7-12.5) % Eos % (Auto) (0.7-5.8) Baso % (Auto) (0.1-1.2) % Neut # (Auto) (1.56-6.13) K/mm3 Lymph # (Auto) (1.18-3.74) K/mm3 [place] # (Auto) (0.24-0.36) K/mm3 Eos # (Auto) (0.04-0.36) K/mm3 Baso # (Auto) (0.01-0.08) K/mm3 Sodium (136-145) mEq/L Potassium (3.5-5.1) mEq/L Chloride (98-107) mEq/L Carbon Dioxide (21-32) mEq/L Anion Gap (5-15) BUN (7-18) mg/dL Creatinine (0.55-1.02) mg/dL Est Cr Clr Drug Dosing mL/min Estimated GFR (MDRD) (>60) mL/min BUN/Creatinine Ratio (14-18) Glucose (74-106) mg/dL Calcium (8.5-10.1) mg/dL Total Bilirubin (0.2-1.0) mg/dL AST (15-37) U/L ALT (14-59) U/L Alkaline Phosphatase (46-116) U/L C-Reactive Protein (<1.0) mg/dL Total Protein (6.4-8.2) g/dl Albumin (3.4-5.0) g/dl Globulin gm/dL Albumin/Globulin Ratio (1-2) Lipase 73 (73-393) U/L Result Diagrams: 10/06/18 10:15 10/06/18 10:15 *Q Meaningful Use (ADM) - VTE Risk Assess *Q Each Risk Factor Represents 1 Point: Age 41 - 59 years, Minor Surgery Planned Total Score 1 Point Risk Factors: 2 - Problem List (1) Cholecystitis SNOMED Code(s): 16893380 ICD Code: K81.9 - CHOLECYSTITIS, UNSPECIFIED Status: Acute Current Visit : Yes Problem List Initiated/Reviewed/Updated: Yes Orders Last 24hrs: Active Orders 24 hr Category Date Time Status Peripheral IV Care [RC] . DIRECTED Care 10/06/18 10:20 Active Ketorolac [Toradol] Med 10/06/18 11:30 Active 30 mg IVPUSH ONETIME Sodium Chloride 0.9% [Normal Saline] 1,000 ml Med 10/06/18 10:30 Active IV ONETIME Sodium Chloride 0.9% [Normal Saline] 1,000 ml Med 10/06/18 13:00 Active IV ONETIME Sodium Chloride 0.9% [Saline Flush] Med 10/06/18 10:19 Active 10 ml FLUSH ASDIRECTED PRN Peripheral IV Insertion Adult [OM.PC] Stat Oth 10/06/18 10:19 Ordered Medication Orders Sodium Chloride (Normal Saline) 1,000 mls @ 999 mls/hr IV ONETIME LADONNA Last Admin: 10/06/18 10:27 Dose: 999 mls/hr Sodium Chloride (Normal Saline) 1,000 mls @ 999 mls/hr IV ONETIME LADONNA Ketorolac Tromethamine (Toradol) 30 mg IVPUSH ONETIME LADONNA Last Admin: 10/06/18 11:35 Dose: 30 mg Sodium Chloride (Saline Flush) 10 ml FLUSH ASDIRECTED PRN PRN Reason: Keep Vein Open Last Admin: 10/06/18 10:20 Dose: 10 ml Assessment/Plan Comment:: 53-year-old lady with acute cholecystitis - Plan for laparoscopic cholecystectomy, possible open - Preoperative antibiotics per SCIP guidelines - Nothing by mouth with IV fluids - Will assess need for admission based on intraoperative findings Clementina Ellis MD General Surgery
[2018-10-06] MEDS ORDERED: HYDROmorphone 0.5 MG/0.5 ML Syringe ONE ×3 (14:44→15:14)
[2018-10-06] MEDS: Bupivacaine 0.5%/EPINEPHrine 1:200,000 50 ML MDV ONE ×2 (14:48→15:06)
[2018-10-06] MEDS: Lidocaine 1% with EPINEPHrine 1:100,000 20 ML MDV ONE ×2 (14:48→15:05)
[2018-10-06] MEDS ORDERED: ceFAZolin 1 GM Vial ONE (14:49)
[2018-10-06] MEDS ORDERED: Neostigmine Methylsulfate 1 MG/ML 5 ML Syringe ONE (15:23)
[2018-10-06] MEDS ORDERED: Ketorolac 30 MG/ML SDV ONE (15:37)
[2018-10-06] MEDS ORDERED: Meperidine 50 MG/ML Vial IVPUSH ONE (15:51)
[2018-10-06] MEDS ORDERED: HYDROmorphone 0.5 MG/0.5 ML Syringe IVPUSH PRN (15:51)
[2018-10-06] MEDS ORDERED: diphenhydrAMINE 50 MG/ML SDV IVPUSH PRN (15:51)
[2018-10-06] MEDS ORDERED: Ondansetron 4 MG/2 ML SDV IVPUSH PRN (15:51)
[2018-10-06] MEDS ORDERED: fentaNYL 100 MCG/2 ML SDV IVPUSH PRN (15:51)
--- NOTE | 2018-10-06 15:54 | PCM.OPNOTE ---
- General Post-Op/Procedure Note Date of Surgery/Procedure: 10/06/18 Operative Procedure(s): Laparoscopic cholecystectomy Findings: Acute cholecystitis with large stones in gallbladder Pre Op Diagnosis: Acute cholecystitis Post-Op Diagnosis: Same Anesthesia Technique: General ET Tube Primary Surgeon: Clementina Ellis Anesthesia Provider: Ethan Bird Pathology: Gallbladder with stones Fluid Replacement, Intraop: 1,600 Output, Urine Amount: 0 EBL in mLs: 15 Complications: none apparent Condition: Good
--- NOTE | 2018-10-06 15:55 | PCM.PRNOTE ---
- Free Text/Narrative Note: OPERATIVE REPORT Date of Surgery/Procedure: October 06, 2018 Operative Procedure(s): laparoscopic cholecystectomy Findings: Acute cholecystitis with large gallbladder stones Pre Op Diagnosis: Acute cholecystitis Post-Op Diagnosis: Same Anesthesia Technique: General ET Tube Primary Surgeon: Clementina Ellis MD Anesthesia Provider: Ethan Bird CRNA Pathology: Gallbladder with stones Fluid Replacement, Intraop: 1600cc Output, Urine Amount: 0cc EBL in mLs: 15 Drain/Tube Comments: None Indication for the procedure: The patient is a 53-year-old lady who presented to the emergency department with findings of acute cholecystitis. The patient was counseled for laparoscopic cholecystectomy, with possible conversion to open. After discussion of the risks of infection, bleeding and injury to the bile duct as well as increased complication from previous intra-abdominal surgery, the patient's consent was obtained. Description of the procedure: The patient presented to the outpatient holding area on the day of the procedure. The history and physical were verified and consent was present and on the chart. The patient was taken back to the operating room and placed in supine position on the operating table. SCD boots were placed and functional prior to the start of the procedure. Preoperative antibiotics were administered according to SCIP protocol, Ancef 2 g IV. A surgical timeout was performed. The patient then had induction of general anesthesia and was intubated without difficulty. The patient was prepped and draped in standard surgical fashion. We began by making an infraumbilical vertical incision and deepened this down through subcutaneous fat to the level of the fascia. This was grasped and incised. We bluntly entered through the peritoneum and a finger sweep was done. A stay suture of 0 Vicryl was placed in the fascia. The 12 mm balloon Landaverde port was then inserted into the abdomen and the balloon inflated. Insufflation was attached and we had appropriate opening pressures. The abdomen was then insufflated to 15 mmHg. We inserted a scope into the abdomen and inspected the area where we had entered. There was no evidence of injury to surrounding structures with no evidence of bile or bleeding. A TAP block was then performed using 1% lidocaine with epinephrine mixed with 0.5% bupivicaine with epinephrine. The patient was then positioned with head up and right side up to facilitate exposure of the gallbladder. We then proceeded with placing our additional ports. A 5mm port was placed in the epigastric region. Two additional 5mm ports placed under direct visualization in the right upper quadrant. Once we had sufficiently exposed the dome of the gallbladder. This was grasped and retracted cephalad. We proceeded with our dissection to expose the cystic duct and cystic artery. The cystic duct and artery were then clipped and cut using endoscopic scissors. We then proceeded to fully dissect the gallbladder off of the cystic plate using the Bovie device. The gallbladder was in place in the Endo Catch bag and withdrawn towards the umbilical port. We then inspected the area of the dissection. There was no significant bleeding and hemostasis was achieved. Any blood or bile was removed using a Ray -Murphy in the abdomen, which was then promptly removed from the abdomen. We then inspected the port sites and desufflated the abdomen. The ports were then removed. The gallbladder was withdrawn through the umbilical port site. It was difficult to remove the gallbladder. Due to the very large stone and surrounding inflammation. The umbilical port site was enlarged and the stone was manipulated and crushed. We then proceeded to close the umbilical port site using 0 Vicryl [id number] sutures to close the defect. The defect was then irrigated. The umbilical site. We had good closure of the fascia. A superficial 4-0 monocryl suture was used to approximate the skin. The skin was covered with mastisol and Steri-Strips at the umbilical site, and the remaining incisions were covered with Dermabond surgical glue. A dry dressing was applied over the Steri-Strips. The patient tolerated the procedure well and was extubated without difficulty. He was transported to the PACU in stable condition. All sponge, needle counts correct. I was scrubbed and actively participated in the entire procedure. No immediate complications noted. Complications: None apparent Condition: Good Clementina Ellis MD General Surgery
[2018-10-06] MEDS ORDERED: Acetaminophen/HYDROcodone 325-5 MG Tab PO PRN (16:13)
[2018-10-06] MEDS ORDERED: Ibuprofen 600 MG Tab PO PRN (16:13)
[2018-10-06] MEDS ORDERED: Ondansetron 4 MG Tab.DIS PO PRN (16:13)
--- NOTE | 2018-10-06 16:22 | PCM.POSTAN ---
POST ANESTHESIA ASSESSMENT - MENTAL STATUS Mental Status: Alert, Oriented - VITAL SIGNS Pulse Rate: 104 SaO2: 96 Resp Rate: 10 Blood Pressure: 116/61 Temperature: 36.6 C - RESPIRATORY Respiratory Status: Respiratory Rate WNL, Airway Patent, O2 Saturation Stable, Supplemental Oxygen - CARDIOVASCULAR CV Status: Pulse Rate WNL, Blood Pressure Stable - GASTROINTESTINAL GI Status: No Symptoms - PAIN Pain Score: 0 - POST OP HYDRATION Hydration Status: Adequate & Stable
[2018-10-06 19:10] VITALS: BP 120/67
== END 2018-10-06 19:15 | disposition home or self-care (01) ==
LOC: JD.ED 10:02 → JD.SDS 14:05
PROVIDERS: ATTEND Surgery
DX: K80.10 Calculus of gallbladder with chronic cholecystitis without obstruction (principal); I10 Essential (primary) hypertension; Z87.891 Personal history of nicotine dependence; Z79.899 Other long term (current) drug therapy; Z88.0 Allergy status to penicillin; Z88.2 Allergy status to sulfonamides; Z88.1 Allergy status to other antibiotic agents; Z88.5 Allergy status to narcotic agent
CPT/HCPCS: 36415; 47562; 74019; 76705; 80053; 83690; 85025; 86140; 96361; 96374; 96375; 96376; 99285; A9270; J0690; J1100; J1170; J1200; J1885; J2001; J2250; J2405; J2704; J2710; J2765; J3010; J3490; J7040; 00790; 99284; J0330

== ENCOUNTER 2018-10-28 15:03 | Emergency (ER) | payer MEDICAID ==
[2018-10-28] MEDS ORDERED: Sodium Chloride 0.9% 1,000 ML IV STA (15:41)
[2018-10-28] MEDS ORDERED: Ondansetron 4 MG/2 ML SDV IVPUSH ONE (15:41)
[2018-10-28] MEDS ORDERED: Sodium Chloride 0.9% 10 ML Syringe FLUSH PRN (15:41)
[2018-10-28] MEDS ORDERED: HYDROmorphone 1 MG/ML Syringe IVPUSH ONE ×2 (15:44→16:55)
[2018-10-28] MEDS ORDERED: Iopamidol 612 MG/ML 100 ML Bottle IVPUSH ONE (16:17)
[2018-10-28] MEDS ORDERED: Diatrizoate Meglumine/Diatrizoate Sodium 37% 120 ML Bottle PO ONE (16:17)
[2018-10-28] MEDS ORDERED: Sodium Chloride 0.9% 10 ML Syringe FLUSH ONE (16:17)
[2018-10-28] MEDS ORDERED: Metoclopramide 10 MG/2 ML SDV IVPUSH ONE (16:23)
--- NOTE | 2018-10-28 16:56 | CT ---
CT abdomen and pelvis Technique: Multiple axial sections were obtained from below the dome of the diaphragm inferiorly through the pubic symphysis. Intravenous contrast was utilized. Minimal oral contrast is seen. Delayed images were also obtained from above the kidneys inferiorly through the pubic symphysis. Comparison: Prior CT study performed as a renal stone protocol dated 01/03/18. Findings: Small portion of the visualized lung bases shows nothing acute. Visualized liver shows no focal abnormality. Spleen appears within normal limits. Adrenal glands show no nodule. Pancreas is within normal limits. Surgical clips are seen from prior cholecystectomy. Kidneys show symmetric contrast enhancement without hydronephrosis or mass. Aorta shows no aneurysm. No retroperitoneal adenopathy or mesenteric abnormalities are seen. Small fat-containing umbilical hernia is noted. Cyst noted within the right ovary measuring 2.1 cm which is likely incidental as it has diminished in size from prior CT study at which time it measured 3.5 cm. Prior hysterectomy appears to be present. No pelvic mass or adenopathy is seen. Appendix not definitely visualized. No free fluid or inflammatory change is seen. No bowel dilatation is seen. Bone window settings were reviewed which appears within normal limits for the patient's age. Delayed images shows contrast within the ureters as well as bladder. Impression: 1. Incidental findings. Nothing acute is appreciated on CT study of the abdomen and pelvis. Diagnostic code #2
--- NOTE | 2018-10-28 18:12 | EDM.PDOC ---
ED HPI GENERAL MEDICAL PROBLEM - General Chief Complaint: Abdominal Pain Stated Complaint: R SIDE ABD PAIN Time Seen by Provider: 10/28/18 15:20 Source of Information: Reports: Patient History Limitations: Reports: No Limitations - History of Present Illness INITIAL COMMENTS - FREE TEXT/NARRATIVE: The patient presents with right upper abdominal pain. This started about noon today. She was seen here 2 weeks ago and had a lap garcia. Everything went fine and she was seen in follow up and she was doing well until today. She had nausea and vomiting. She has no fever, chills, cough, congestion or runny nose. She has no chest pain or shortness of breath. She has no dysuria. Onset: Gradual Duration: Hour(s): Location: Reports: Abdomen Quality: Reports: Sharp Severity: Severe Improves with: Reports: None Worsens with: Reports: None Associated Symptoms: Reports: Nausea/Vomiting. 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: none Right Abdominal Pain Score (Numeric/FACES): 8 - Related Data Allergies Allergy/AdvReac Type Severity Reaction Status Date / Time Penicillins Allergy Rash Verified 10/06/18 10:11 propoxyphene napsylate Allergy Rash Verified 10/06/18 10:11 [From Darvocet-N] Sulfa (Sulfonamide Allergy Rash Verified 10/06/18 10:11 Antibiotics) sulfamethoxazole Allergy Rash Verified 10/06/18 10:11 [From Bactrim] trimethoprim [From Bactrim] Allergy Rash Verified 10/06/18 10:11 Home Meds: Home Meds Ondansetron [Zofran] 4 mg BUCCAL Q6H PRN #6 tab 01/03/18 [Rx] Lisinopril 10 mg PO DAILY 05/24/18 [History] Naproxen 500 mg PO BID PRN 05/24/18 [History] Acetaminophen/HYDROcodone [[place] 325-5 MG] 1 tab PO Q6H PRN 14 Days #40 tablet 10/06/18 [Rx] Docusate Sodium [Colace] 100 mg PO BID 20 Days #40 cap 10/06/18 [Rx] Ibuprofen 600 mg PO Q6HR PRN 20 Days #120 tablet 10/06/18 [Rx] Hydrocodone/Acetaminophen [Hydrocodon-Acetaminophen 5-325] 1 - 2 each PO Q6HR PRN #10 tablet 10/28/18 [Rx] Ondansetron [Zofran ODT] 4 mg PO Q6H PRN #20 tab.dis 10/28/18 [Rx] Past Medical History HEENT History: Reports: Impaired Vision Other HEENT History: Wears eyeglasses. 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: Musculoskeletal History: Reports: Back Pain, Chronic Neurological History: Reports: Migraines Psychiatric History: Reports: Depression - Past Surgical History GI Surgical History: Reports: Appendectomy Female Surgical History: Reports: Hysterectomy Social & Family History - Family History Family Medical History: Noncontributory HEENT: Reports: None Cardiac: Reports: None Respiratory: Reports: None GI: Reports: None : Reports: None - Caffeine Use Caffeine Use: Reports: Soda - Living Situation & Occupation Living situation: Reports: Single Occupation: Employed ED ROS GENERAL - Review of Systems Review Of Systems: See Below Constitutional: Reports: No Symptoms HEENT: Reports: No Symptoms Respiratory: Reports: No Symptoms Cardiovascular: Reports: No Symptoms Endocrine: Reports: No Symptoms GI/Abdominal: Reports: Abdominal Pain, Nausea, Vomiting. Denies: Diarrhea : Reports: No Symptoms Musculoskeletal: Reports: No Symptoms ED EXAM, GI/ABD - Physical Exam Exam: See Below Exam Limited By: No Limitations General Appearance: Alert, No Apparent Distress Ears: Normal External Exam Nose: Normal Inspection Head: Atraumatic, Normocephalic Neck: Normal Inspection, Supple, Non-Tender Respiratory/Chest: No Respiratory Distress, Lungs Clear, Normal Breath Sounds Cardiovascular: Regular Rate, Rhythm, No Edema, No Murmur GI/Abdominal Exam: Soft, No Organomegaly, No Mass, Tender (Moderate tenderness to the RUQ) Back Exam: Normal Inspection Extremities: Normal Inspection Course - Vital Signs Last Recorded V/S: Last Vital Signs Temp 98.8 F 10/28/18 15:19 Pulse 96 10/28/18 15:19 Resp 20 10/28/18 15:19 BP 115/102 H 10/28/18 15:19 Pulse Ox 98 10/28/18 15:19 - Orders/Labs/Meds Orders: Active Orders 24 hr Category Date Time Status Peripheral IV Care [RC] . DIRECTED Care 10/28/18 15:43 Active Sodium Chloride 0.9% [Saline Flush] Med 10/28/18 15:41 Active 10 ml FLUSH ASDIRECTED PRN ED Antiemetic Medication Reflex [OM.PC] Stat Oth 10/28/18 15:43 Ordered Peripheral IV Insertion Adult [OM.PC] Stat Oth 10/28/18 15:41 Ordered Medication Orders Sodium Chloride (Saline Flush) 10 ml FLUSH ASDIRECTED PRN PRN Reason: Keep Vein Open Last Admin: 10/28/18 15:55 Dose: 10 ml Labs: Laboratory Tests 10/28/18 10/28/18 10/28/18 Range/Units 16:10 16:10 17:10 WBC 10.32 H (3.98-10.04) K/mm3 RBC 4.77 (3.98-5.22) M/mm3 Hgb 13.6 (11.2-15.7) gm/L Hct 41.8 (34.1-44.9) % MCV 87.6 (79.4-94.8) fl MCH 28.5 (25.6-32.2) pg MCHC 32.5 (32.2-35.5) g/dl RDW Std Deviation 40.4 (36.4-46.3) fL Plt Count 214 (182-369) K/mm3 MPV 11.6 (9.4-12.3) fl Neut % (Auto) 71.3 H (34.0-71.1) % Lymph % (Auto) 22.3 (19.3-51.7) % [place] % (Auto) 5.5 (4.7-12.5) % Eos % (Auto) 0.5 L (0.7-5.8) Baso % (Auto) 0.2 (0.1-1.2) % Neut # (Auto) 7.36 H (1.56-6.13) K/mm3 Lymph # (Auto) 2.30 (1.18-3.74) K/mm3 [place] # (Auto) 0.57 H (0.24-0.36) K/mm3 Eos # (Auto) 0.05 (0.04-0.36) K/mm3 Baso # (Auto) 0.02 (0.01-0.08) K/mm3 Sodium 142 (136-145) mEq/L Potassium 3.6 (3.5-5.1) mEq/L Chloride 106 (98-107) mEq/L Carbon Dioxide 26 (21-32) mEq/L Anion Gap 13.6 (5-15) BUN 11 (7-18) mg/dL Creatinine 0.6 (0.55-1.02) mg/dL Est Cr Clr Drug Dosing 99.82 mL/min Estimated GFR (MDRD) > 60 (>60) mL/min BUN/Creatinine Ratio 18.3 H (14-18) Glucose 99 (74-106) mg/dL Calcium 8.8 (8.5-10.1) mg/dL Total Bilirubin 0.6 (0.2-1.0) mg/dL AST 12 L (15-37) U/L ALT 20 (14-59) U/L Alkaline Phosphatase 59 (46-116) U/L Total Protein 7.4 (6.4-8.2) g/dl Albumin 3.9 (3.4-5.0) g/dl Globulin 3.5 gm/dL Albumin/Globulin Ratio 1.1 (1-2) Lipase 57 L (73-393) U/L Urine Color Light yellow (Yellow) Urine Appearance Clear (Clear) Urine pH 6.0 (5.0-8.0) Ur Specific [place] 1.010 (1.005-1.030) Urine Protein Negative (Negative) Urine Glucose (UA) Negative (Negative) Urine Ketones Negative (Negative) Urine Occult Blood 1+ H (Negative) Urine Nitrite Negative (Negative) Urine Bilirubin Negative (Negative) Urine Urobilinogen 0.2 (0.2-1.0) Ur Leukocyte Esterase Negative (Negative) Urine RBC 0-5 (0-5) /hpf Urine WBC 0-5 (0-5) /hpf Ur Epithelial Cells 5-10 H (0-5) /hpf Urine Bacteria Occasional (FEW) /hpf Urine Mucus Not seen (FEW) /hpf Meds: Medications Generic Name Dose Route Start Last Admin Trade Name Freq PRN Reason Stop Dose Admin Sodium Chloride 10 ml 10/28/18 15:41 10/28/18 15:55 Saline Flush FLUSH 10 ml ASDIRECTED PRN Administration Keep Vein Open Discontinued Medications Generic Name Dose Route Start Last Admin Trade Name Freq PRN Reason Stop Dose Admin Diatrizoate Meglum/Diatrizoate Sod 90 ml 10/28/18 16:17 10/28/18 16:34 Gastrografin 37% PO 10/28/18 16:18 90 ml ONETIME ONE Administration Hydromorphone HCl 0.5 mg 10/28/18 15:44 10/28/18 15:55 Dilaudid IVPUSH 10/28/18 15:45 0.5 mg ONETIME ONE Administration Hydromorphone HCl 1 mg 10/28/18 16:55 10/28/18 17:07 Dilaudid IVPUSH 10/28/18 16:56 1 mg ONETIME ONE Administration Sodium Chloride 1,000 mls @ 1,000 mls/hr 10/28/18 15:41 10/28/18 15:53 Normal Saline IV 10/28/18 16:40 1,000 mls/hr .BOLUS STA Administration Iopamidol 100 ml 10/28/18 16:17 10/28/18 16:34 Isovue-300 (61%) IVPUSH 10/28/18 16:18 100 ml ONETIME ONE Administration Metoclopramide HCl 10 mg 10/28/18 16:23 10/28/18 16:41 Reglan IVPUSH 10/28/18 16:24 10 mg ONETIME ONE Administration Ondansetron HCl 4 mg 10/28/18 15:41 10/28/18 15:54 Zofran IVPUSH 10/28/18 15:42 4 mg ONETIME ONE Administration Sodium Chloride 10 ml 10/28/18 16:17 10/28/18 16:34 Saline Flush FLUSH 10/28/18 16:18 10 ml ONETIME ONE Administration - Re-Assessments/Exams Free Text/Narrative Re-Assessment/Exam: 10/28/18 18:10 I ordered an IV NS 1L bolus, zofran 4mg IV, labs, UA and a CT of her abdomen and pelvis. She could not hold down the contrast so we stopped that and I gave her some reglan and something for pain. Her WBC was elevated at 10.32. Her CMP looks good. Her UA shows no UTI. Her CT shows incidental findings. Nothing acute is appreciated on CT study of the abdomen and pelvis. She feels better. I will get her on some hydrocodone for the pain and zofran for nausea. Departure - Departure Time of Disposition: 18:15 Disposition: Home, Self-Care 01 Condition: Good Clinical Impression: Vomiting Abdominal pain Qualifiers: Abdominal location: generalized Qualified Code(s): R10.84 - Generalized abdominal pain - Discharge Information *PRESCRIPTION DRUG MONITORING PROGRAM REVIEWED*: No *COPY OF PRESCRIPTION DRUG MONITORING REPORT IN PATIENT EMA: No Prescriptions: Hydrocodone/Acetaminophen [Hydrocodon-Acetaminophen 5-325] 1 - 2 each PO Q6HR PRN #10 tablet PRN Reason: Pain Ondansetron [Zofran ODT] 4 mg PO Q6H PRN #20 tab.dis PRN Reason: Nausea\vomiting Referrals: Simona Bateman PA-C [Primary Care Provider] - 1 Week Additional Instructions: Drink plenty of fluid. Take tylenol or motrin for pain. Take pepcid 20mg daily for 5 days. Take the zofran every 6 hours as needed for nausea or vomiting. Take the hydrocodone if the pain is worse. Please return if you are worse. - My Orders Last 24 Hours: My Active Orders 10/28/18 15:41 Sodium Chloride 0.9% [Saline Flush] 10 ml FLUSH ASDIRECTED PRN Peripheral IV Insertion Adult [OM.PC] Stat 10/28/18 15:43 Peripheral IV Care [RC] . DIRECTED ED Antiemetic Medication Reflex [OM.PC] Stat - Assessment/Plan Last 24 Hours: My Active Orders 10/28/18 15:41 Sodium Chloride 0.9% [Saline Flush] 10 ml FLUSH ASDIRECTED PRN Peripheral IV Insertion Adult [OM.PC] Stat 10/28/18 15:43 Peripheral IV Care [RC] . DIRECTED ED Antiemetic Medication Reflex [OM.PC] Stat
[2018-10-28 18:53] VITALS: BP 140/94
== END 2018-10-28 18:45 | disposition home or self-care (01) ==
LOC: JD.ED 15:03
DX: R10.11 Right upper quadrant pain (principal); R10.84 Generalized abdominal pain; R11.10 Vomiting, unspecified; I10 Essential (primary) hypertension; Z79.899 Other long term (current) drug therapy; Z88.2 Allergy status to sulfonamides; Z88.1 Allergy status to other antibiotic agents; Z88.0 Allergy status to penicillin; Z88.8 Allergy status to other drugs, medicaments and biological substances
CPT/HCPCS: 36415; 74177; 80053; 81001; 83690; 85025; 96361; 96374; 96375; 96376; 99284; J1170; J2405; J2765; J7040; Q9963; Q9967

== ENCOUNTER 2018-12-14 18:46 | Emergency (ER) | payer SELFPAY ==
[2018-12-14 19:17] VITALS: BP 138/86
[2018-12-14] MEDS ORDERED: Haloperidol Lactate 5 MG/ML SDV IM ONE (19:18)
[2018-12-14] MEDS ORDERED: Benztropine 1 MG Tab PO ONE (19:18)
[2018-12-14] MEDS ORDERED: Sodium Chloride 0.9% 1,000 ML IV SCH (19:30)
--- NOTE | 2018-12-14 19:33 | EDM.PDOC ---
ED HPI GENERAL MEDICAL PROBLEM - General Chief Complaint: Headache Stated Complaint: HEADACHE Time Seen by Provider: 12/14/18 19:11 Source of Information: Reports: Patient History Limitations: Reports: No Limitations - History of Present Illness INITIAL COMMENTS - FREE TEXT/NARRATIVE: 53 y/o Female presents to ER with cc headache. She reports it started this morning about 0900 while she was driving to [employer] for work. 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 She reports having a history of migraines and is seeing a neurologist who gave her Botox injections. She states nothing makes it better or worse. She denies fever, chills, rash or neck pain/ stiffness. She is in no apparent distress at this time. Onset: Today Onset Date: 12/14/18 Onset Time: 09:00 Duration: Getting Worse Location: Reports: Head Quality: Reports: Ache Severity: Mild Improves with: Reports: None Worsens with: Reports: None Associated Symptoms: Reports: Nausea/Vomiting. 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 Headache Pain Score (Numeric/FACES): 10 - Related Data Allergies Allergy/AdvReac Type Severity Reaction Status Date / Time Penicillins Allergy Rash Verified 12/14/18 19:09 propoxyphene napsylate Allergy Rash Verified 12/14/18 19:09 [From Darvocet-N] Sulfa (Sulfonamide Allergy Rash Verified 12/14/18 19:09 Antibiotics) sulfamethoxazole Allergy Rash Verified 12/14/18 19:09 [From Bactrim] trimethoprim [From Bactrim] Allergy Rash Verified 12/14/18 19:09 Home Meds: Home Meds Lisinopril 10 mg PO DAILY 05/24/18 [History] Naproxen 500 mg PO BID PRN 05/24/18 [History] Ibuprofen 600 mg PO Q6HR PRN 20 Days #120 tablet 10/06/18 [Rx] Ondansetron [Zofran ODT] 4 mg PO Q6H PRN #20 tab.dis 10/28/18 [Rx] Past Medical History HEENT History: Reports: Impaired Vision Other HEENT History: Wears eyeglasses. 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: Musculoskeletal History: Reports: Back Pain, Chronic Neurological History: Reports: Migraines Psychiatric History: Reports: Depression - Past Surgical History GI Surgical History: Reports: Appendectomy Female Surgical History: Reports: Hysterectomy Social & Family History - Family History Family Medical History: Noncontributory HEENT: Reports: None Cardiac: Reports: None Respiratory: Reports: None GI: Reports: None : Reports: None - Tobacco Use Smoking Status *Q: Never Smoker Second Hand Smoke Exposure: No - Caffeine Use Caffeine Use: Reports: Soda - Recreational Drug Use Recreational Drug Use: No - Living Situation & Occupation Living situation: Reports: Single Occupation: Employed ED ROS GENERAL - Review of Systems Review Of Systems: See Below Constitutional: Denies: Fever, Chills HEENT: Reports: Glasses Respiratory: Reports: No Symptoms Cardiovascular: Reports: No Symptoms Endocrine: Reports: No Symptoms GI/Abdominal: Reports: No Symptoms : Reports: No Symptoms Musculoskeletal: Reports: No Symptoms Skin: Reports: No Symptoms Neurological: Reports: Headache Psychiatric: Reports: No Symptoms Hematologic/Lymphatic: Reports: No Symptoms Immunologic: Reports: No Symptoms - Physical Exam Exam: See Below Exam Limited By: No Limitations General Appearance: Alert, WD/WN, No Apparent Distress Eye Exam: Bilateral Eye: EOMI, PERRL Ears: Normal External Exam, Normal Canal, Hearing Grossly Normal, Normal TMs Nose: Normal Inspection, Normal Mucosa, No Blood Throat/Mouth: Normal Inspection, Normal Lips, Normal Teeth, Normal Gums, Normal Oropharynx, Normal Voice, No Airway Compromise Head Exam: Atraumatic, Normocephalic Neck: Normal Inspection, Supple, Non-Tender, Full Range of Motion Respiratory/Chest: No Respiratory Distress, Lungs Clear, Normal Breath Sounds, No Accessory Muscle Use, Chest Non-Tender Cardiovascular: Normal Peripheral Pulses, Regular Rate, Rhythm, No Edema, No Gallop, No JVD, No Murmur, No Rub Neuro Exam (Abbreviated): Alert, Oriented, CN II-XII Intact, Normal Cognition, Normal Gait, Normal Reflexes, No Motor/Sensory Deficits Back Exam: Normal Inspection, Full Range of Motion Extremities: Normal Inspection, Normal Range of Motion, Non-Tender, No Pedal Edema, Normal Capillary Refill Psychiatric: Normal Affect, Normal Mood Skin Exam: Warm, Dry, Intact, Normal Color, No Rash Course - Vital Signs Last Recorded V/S: Last Vital Signs Temp 98.4 F 12/14/18 19:10 Pulse 88 12/14/18 19:10 Resp 20 12/14/18 19:10 BP 138/86 12/14/18 19:10 Pulse Ox 98 12/14/18 19:10 - Orders/Labs/Meds Orders: Active Orders 24 hr Category Date Time Status Sodium Chloride 0.9% [Normal Saline] 1,000 ml Med 12/14/18 19:30 Active IV ASDIRECTED Medication Orders Sodium Chloride (Normal Saline) 1,000 mls @ 999 mls/hr IV ASDIRECTED LADONNA Last Admin: 12/14/18 19:36 Dose: 999 mls/hr Meds: Medications Generic Name Dose Route Start Last Admin Trade Name Freq PRN Reason Stop Dose Admin Sodium Chloride 1,000 mls @ 999 mls/hr 12/14/18 19:30 12/14/18 19:36 Normal Saline IV 999 mls/hr ASDIRECTED LADONNA Administration Discontinued Medications Generic Name Dose Route Start Last Admin Trade Name Freq PRN Reason Stop Dose Admin Benztropine Mesylate 1 mg 12/14/18 19:18 12/14/18 19:36 Cogentin PO 12/14/18 19:19 1 mg ONETIME ONE Administration Haloperidol Lactate 5 mg 12/14/18 19:18 12/14/18 19:35 Haldol IM 12/14/18 19:19 5 mg ONETIME ONE Administration Morphine Sulfate 2 mg 12/14/18 20:22 Morphine IVPUSH 12/14/18 20:23 ONETIME ONE Ondansetron HCl 4 mg 12/14/18 20:22 Zofran IVPUSH 12/14/18 20:23 ONETIME ONE - Re-Assessments/Exams Free Text/Narrative Re-Assessment/Exam: 12/14/18 20:27 53 y/o female presented to ER with cc headache/migraine. She received IVF, Cogentin and Haldol and her condition improved. I will discharge home with instructions to follow up with her PCP. Instructed to return to the ER for any new or acute worsening symptoms. Patient verbalized understanding and is comfortable with plan for discharge. She is stable at time of discharge. Departure - Departure Time of Disposition: 20:29 Disposition: Home, Self-Care 01 Condition: Good Clinical Impression: Migraine aura without headache - Discharge Information Instructions: Migraine Headache, [id number] Referrals: Simona Bateman PA-C [Primary Care Provider] - Forms: ED Department Discharge Additional Instructions: You have been diagnosis with migraine. Please follow up with your PCP and neurologist for further evaluation. Return to the ER for any new or acute worsening symptoms. - My Orders Last 24 Hours: My Active Orders 12/14/18 19:30 Sodium Chloride 0.9% [Normal Saline] 1,000 ml IV ASDIRECTED - Assessment/Plan Last 24 Hours: My Active Orders 12/14/18 19:30 Sodium Chloride 0.9% [Normal Saline] 1,000 ml IV ASDIRECTED
[2018-12-14] MEDS ORDERED: Morphine 2 MG/ML Syringe IVPUSH ONE (20:22)
[2018-12-14] MEDS ORDERED: Ondansetron 4 MG/2 ML SDV IVPUSH ONE (20:22)
== END 2018-12-14 20:38 | disposition home or self-care (01) ==
LOC: JD.ED 18:46
DX: G43.109 Migraine with aura, not intractable, without status migrainosus (principal); I10 Essential (primary) hypertension; F32.9 Major depressive disorder, single episode, unspecified; Z88.0 Allergy status to penicillin; Z88.8 Allergy status to other drugs, medicaments and biological substances; Z79.899 Other long term (current) drug therapy
CPT/HCPCS: 96360; 96372; 99283; A9270; J1630; J7040; 99284

== ENCOUNTER 2019-12-25 11:52 | Emergency (ER) | payer MEDICAID ==
[2019-12-25] MEDS ORDERED: Sodium Chloride 0.9% 10 ML Syringe FLUSH PRN (12:16)
[2019-12-25] MEDS ORDERED: Ondansetron 4 MG/2 ML SDV IVPUSH ONE (12:17)
[2019-12-25] MEDS ORDERED: Sodium Chloride 0.9% 1,000 ML IV SCH (12:30)
--- NOTE | 2019-12-25 13:23 | EDM.PDOC ---
ED HPI GENERAL MEDICAL PROBLEM - General Chief Complaint: Abdominal Pain Stated Complaint: ABDOMINAL PAIN Time Seen by Provider: 12/25/19 12:05 Source of Information: Reports: Patient History Limitations: Reports: No Limitations - History of Present Illness INITIAL COMMENTS - FREE TEXT/NARRATIVE: Patient is a 54-year-old female who presents with complaints of epigastric abdominal pain that started yesterday. Patient states that she ate breakfast yesterday morning which consisted of a piece of toast. After that she developed epigastric pain and has not been able to eat since that time. She has been drinking fluids and has not had any vomiting, however states that she does feel nauseous. She has no history of GERD or acid reflux. She has no history of other abdominal pathology. She does have her gallbladder and appendix. Her last bowel movement was last evening and she stated that it was a normal bowel movement for her. She denies any fever or chills. - Related Data Allergies Allergy/AdvReac Type Severity Reaction Status Date / Time Penicillins Allergy Cannot Verified 06/27/19 09:55 Remember propoxyphene Allergy Hives Verified 06/27/19 09:55 [From Darvocet-N] Sulfa (Sulfonamide Allergy Hives Verified 06/27/19 09:55 Antibiotics) sulfamethoxazole Allergy Hives Verified 06/27/19 09:55 [From Bactrim] trimethoprim [From Bactrim] Allergy Hives Verified 06/27/19 09:55 Home Meds: Home Meds lisinopriL [Prinivil] 10 mg PO DAILY 06/27/19 [History] Past Medical History HEENT History: Reports: Impaired Vision Cardiovascular History: Reports: Hypertension Respiratory History: Reports: Sleep Apnea Gastrointestinal History: Reports: GERD Musculoskeletal History: Reports: Back Pain, Chronic Neurological History: Reports: Migraines - Past Surgical History Female Surgical History: Reports: Hysterectomy Social & Family History - Family History Family Medical History: Noncontributory - Tobacco Use Smoking Status *Q: Light Tobacco Smoker Years of Tobacco use: 20 Packs/Tins Daily: 0.2 - Caffeine Use Caffeine Use: Reports: Coffee ED ROS GENERAL - Review of Systems Review Of Systems: See Below Constitutional: Reports: Decreased Appetite. Denies: Fever, Chills HEENT: Reports: No Symptoms Respiratory: Reports: No Symptoms Cardiovascular: Reports: No Symptoms. Denies: Chest Pain Endocrine: Reports: No Symptoms GI/Abdominal: Reports: Abdominal Pain, Nausea. Denies: Diarrhea, Vomiting : Reports: No Symptoms Musculoskeletal: Reports: No Symptoms Skin: Reports: No Symptoms Neurological: Reports: No Symptoms Psychiatric: Reports: No Symptoms Hematologic/Lymphatic: Reports: No Symptoms Immunologic: Reports: No Symptoms ED EXAM, GI/ABD - Physical Exam Exam: See Below Exam Limited By: No Limitations General Appearance: Alert, WD/WN, No Apparent Distress Respiratory/Chest: No Respiratory Distress, Lungs Clear, Normal Breath Sounds, No Accessory Muscle Use, Chest Non-Tender Cardiovascular: Normal Peripheral Pulses, Regular Rate, Rhythm, No Edema, No Gallop, No JVD, No Murmur, No Rub GI/Abdominal Exam: Normal Bowel Sounds, Soft, No Organomegaly, No Distention, No Abnormal Bruit, No Mass, Pelvis Stable, Tender (Epigastric). No: Distended, Guarding, Rigid, Rebound Neurological: Alert, Oriented, CN II-XII Intact, Normal Cognition, Normal Gait, Normal Reflexes, No Motor/Sensory Deficits Psychiatric: Normal Affect, Normal Mood Skin Exam: Warm, Dry, Intact, Normal Color, No Rash Course - Vital Signs Last Recorded V/S: Last Vital Signs Temp 98.6 F 12/25/19 12:01 Pulse 91 12/25/19 14:44 Resp 16 12/25/19 14:44 BP 116/72 12/25/19 14:44 Pulse Ox 96 12/25/19 14:44 - Orders/Labs/Meds Orders: Active Orders 24 hr Category Date Time Status Peripheral IV Care [RC] . DIRECTED Care 12/25/19 12:16 Active Peripheral IV Insertion Adult [OM.PC] Stat Oth 12/25/19 12:16 Ordered Labs: Laboratory Tests 12/25/19 12/25/19 12/25/19 Range/Units 12:40 13:17 13:17 WBC 9.40 (3.98-10.04) K/mm3 RBC 5.43 H (3.98-5.22) M/mm3 Hgb 15.5 (11.2-15.7) gm/dl Hct 46.4 H (34.1-44.9) % MCV 85.5 (79.4-94.8) fl MCH 28.5 (25.6-32.2) pg MCHC 33.4 (32.2-35.5) g/dl RDW Std Deviation 43.1 (36.4-46.3) fL Plt Count 118 L (182-369) K/mm3 MPV TNP Neut % (Auto) 74.6 H (34.0-71.1) % Lymph % (Auto) 17.0 L (19.3-51.7) % [place] % (Auto) 7.6 (4.7-12.5) % Eos % (Auto) 0.4 L (0.7-5.8) Baso % (Auto) 0.3 (0.1-1.2) % Neut # (Auto) 7.01 H (1.56-6.13) K/mm3 Lymph # (Auto) 1.60 (1.18-3.74) K/mm3 [place] # (Auto) 0.71 H (0.24-0.36) K/mm3 Eos # (Auto) 0.04 (0.04-0.36) K/mm3 Baso # (Auto) 0.03 (0.01-0.08) K/mm3 Manual Slide Review Normal smear Sodium 144 (136-145) mEq/L Potassium 3.7 (3.5-5.1) mEq/L Chloride 107 (98-107) mEq/L Carbon Dioxide 25 (21-32) mEq/L Anion Gap 15.7 H (5-15) BUN 28 H (7-18) mg/dL Creatinine 1.0 (0.55-1.02) mg/dL Est Cr Clr Drug Dosing 59.22 mL/min Estimated GFR (MDRD) 58 (>60) mL/min BUN/Creatinine Ratio 28.0 H (14-18) Glucose 106 (74-106) mg/dL Calcium 9.8 (8.5-10.1) mg/dL Total Bilirubin 0.9 (0.2-1.0) mg/dL AST 14 L (15-37) U/L ALT 24 (14-59) U/L Alkaline Phosphatase 60 (46-116) U/L Troponin I < 0.017 (0.00-0.056) ng/mL C-Reactive Protein 0.3 (<1.0) mg/dL Total Protein 8.0 (6.4-8.2) g/dl Albumin 4.3 (3.4-5.0) g/dl Globulin 3.7 gm/dL Albumin/Globulin Ratio 1.2 (1-2) Lipase 74 (73-393) U/L Meds: Medications Discontinued Medications Generic Name Dose Route Start Last Admin Trade Name Freq PRN Reason Stop Dose Admin Al Hydroxide/Mg Hydroxide 30 0 ml 12/25/19 14:36 12/25/19 14:44 ml/ Lidocaine HCl 15 ml PO 12/25/19 14:37 45 ml ONETIME ONE Administration Sodium Chloride 1,000 mls @ 999 mls/hr 12/25/19 12:30 12/25/19 12:47 Normal Saline IV 999 mls/hr ASDIRECTED LADONNA Administration Ondansetron HCl 4 mg 12/25/19 12:17 12/25/19 12:47 Zofran IVPUSH 12/25/19 12:18 4 mg ONETIME ONE Administration Sodium Chloride 10 ml 12/25/19 12:16 12/25/19 12:48 Saline Flush FLUSH 10 ml ASDIRECTED PRN Administration Keep Vein Open - Re-Assessments/Exams Free Text/Narrative Re-Assessment/Exam: 12/25/19 1440 Hematology was grossly unremarkable. I have ordered a GI cocktail to treat patient's symptoms. 12/25/19 1510 Patient had significant improvement of symptoms after the GI cocktail. I will discharge her home with the recommendation that she take omeprazole twice daily x1 week and then decrease to once daily. Recommend that she follow-up next week with her primary care provider. Discharge instructions as documented. Departure - Departure Time of Disposition: 15:18 Disposition: Home, Self-Care 01 Condition: Good Clinical Impression: Epigastric pain - Discharge Information *PRESCRIPTION DRUG MONITORING PROGRAM REVIEWED*: No *COPY OF PRESCRIPTION DRUG MONITORING REPORT IN PATIENT EMA: No Instructions: Abdominal Pain, Adult Referrals: Simona Bateman PA-C [Primary Care Provider] - Forms: ED Department Discharge Additional Instructions: You were seen in the emergency department today for upper abdominal pain that started yesterday morning. Your blood work was completed and found to be essentially normal. While in the ER, you received a GI cocktail which did significantly improve your symptoms. I would recommend that you start taking omeprazole 20 mg twice daily for the next week and then decrease to once daily. This medication may be purchased [id number]. Recommend that you follow- up with your primary care provider early next week for a follow-up. Recommend that you avoid spicy, greasy, and acidic foods as this will likely make your pain worse. Return to the ER as needed. Sepsis Event Note - Evaluation Sepsis Screening Result: No Definite Risk - Focused Exam Vital Signs: Vital Signs Temp Pulse Resp BP Pulse Ox 12/25/19 14:44 91 16 116/72 96 12/25/19 12:01 98.6 F 126 H 20 120/85 94 L Date Exam was Performed: 12/25/19 Time Exam was Performed: 20:12 - My Orders Last 24 Hours: My Active Orders 12/25/19 12:16 Peripheral IV Care [RC] . DIRECTED Peripheral IV Insertion Adult [OM.PC] Stat - Assessment/Plan Last 24 Hours: My Active Orders 12/25/19 12:16 Peripheral IV Care [RC] . DIRECTED Peripheral IV Insertion Adult [OM.PC] Stat
[2019-12-25] MEDS ORDERED: Alum Hydrox/Mag Hydrox/Simeth 30 ML, Lidocaine 2% 15 ML PO ONE ×2 (14:36)
[2019-12-25 14:45] VITALS: BP 116/72; PULSE 91
== END 2019-12-25 15:25 | disposition home or self-care (01) ==
LOC: MERGE 11:52 → JD.ED 11:52
DX: R10.13 Epigastric pain (principal); F17.210 Nicotine dependence, cigarettes, uncomplicated; I10 Essential (primary) hypertension; Z88.0 Allergy status to penicillin; Z88.2 Allergy status to sulfonamides; Z88.8 Allergy status to other drugs, medicaments and biological substances; Z79.899 Other long term (current) drug therapy
CPT/HCPCS: 36415; 80053; 83690; 84484; 85025; 86140; 96374; 99284; A9270; J2405; J7030

== ENCOUNTER 2020-01-11 12:03 | Emergency (ER) | payer MEDICAID, OTHER ==
[2020-01-11 12:12] VITALS: BP 116/71; PULSE 97
[2020-01-11] MEDS ORDERED: Cyclobenzaprine 10 MG Tab PO ONE (12:25)
--- NOTE | 2020-01-11 12:27 | EDM.PDOC ---
ED HPI GENERAL MEDICAL PROBLEM - General Chief Complaint: Back Pain or Injury Stated Complaint: BACK PAIN Time Seen by Provider: 01/11/20 12:06 Source of Information: Reports: Patient History Limitations: Reports: No Limitations - History of Present Illness INITIAL COMMENTS - FREE TEXT/NARRATIVE: Patient is a 55-year-old female who presents with complaints of acute onset of left lower back pain. 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 When she stood up she experienced a sharp extreme pain in her left lower back. This pain since shooting pains up her back. She did not have any pain or numbness in her legs. Denies any difficulty with bowel or bladder. She states she does have a history of low back pain which her doctor has told her is "muscle spasms ". She has not taken any medications for pain up to this point. 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 (see below) Other Treatments DATA PROCESSING SUPERVISOR: none Left Lower Back Pain Score (Numeric/FACES): 10 - Related Data Allergies Allergy/AdvReac Type Severity Reaction Status Date / Time Penicillins Allergy Severe Rash Verified 01/11/20 12:14 propoxyphene Allergy Severe Hives Verified 01/11/20 12:14 [From Darvocet-N] propoxyphene napsylate Allergy Severe Rash Verified 01/11/20 12:14 [From Darvocet-N] Sulfa (Sulfonamide Allergy Severe Rash Verified 01/11/20 12:14 Antibiotics) sulfamethoxazole Allergy Severe Rash Verified 01/11/20 12:14 [From Bactrim] trimethoprim [From Bactrim] Allergy Severe Rash Verified 01/11/20 12:14 Home Meds: Home Meds Naproxen 500 mg PO BID PRN 05/24/18 [History] Ibuprofen 600 mg PO Q6HR PRN 20 Days #120 tablet 10/06/18 [Rx] lisinopriL [Prinivil] 10 mg PO DAILY 06/27/19 [History] Cyclobenzaprine [Flexeril] 5 mg PO Q8H PRN #10 tab 01/11/20 [Rx] Naproxen [Naprosyn] 500 mg PO Q12HR #10 tab 01/11/20 [Rx] Past Medical History HEENT History: Reports: Impaired Vision Other HEENT History: Wears eyeglasses. 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: Musculoskeletal History: Reports: Back Pain, Chronic Neurological History: Reports: Migraines Psychiatric History: Reports: Depression - Past Surgical History Female Surgical History: Reports: Hysterectomy Social & Family History - Family History Family Medical History: Noncontributory HEENT: Reports: None Cardiac: Reports: None Respiratory: Reports: None GI: Reports: None : Reports: None - Tobacco Use Smoking Status *Q: Never Smoker - Caffeine Use Caffeine Use: Reports: Coffee - Recreational Drug Use Recreational Drug Use: No - Living Situation & Occupation Living situation: Reports: Single Occupation: Employed ED ROS GENERAL - Review of Systems Review Of Systems: Comprehensive ROS is negative, except as noted in HPI. ED EXAM,LOWER BACK PAIN/INJURY - Physical Exam Exam: See Below Exam Limited By: No Limitations General Appearance: Alert, WD/WN, No Apparent Distress Respiratory/Chest: No Respiratory Distress, Lungs Clear, Normal Breath Sounds, No Accessory Muscle Use, Chest Non-Tender Cardiovascular: Normal Peripheral Pulses, Regular Rate, Rhythm, No Edema, No Gallop, No JVD, No Murmur, No Rub Back Exam: Normal Inspection, Paraspinal Tenderness (Left lower back. Tenderness directly over the left SI joint.). No: Vertebral Tenderness Neurological: Alert, Normal Mood/Affect, Normal Dorsiflexion, CN II-XII Intact, Normal Plantar Flexion, Normal Gait, Normal Reflexes, No Motor/Sensory Deficits , Oriented x 3 Psychiatric: Normal Affect, Normal Mood Skin Exam: Warm, Dry, Intact, Normal Color, No Rash Course - Vital Signs Last Recorded V/S: Last Vital Signs Temp 97.9 F 01/11/20 12:11 Pulse 97 01/11/20 12:11 Resp 20 01/11/20 12:11 BP 116/71 01/11/20 12:11 Pulse Ox 92 L 01/11/20 12:11 - Orders/Labs/Meds Orders: Active Orders 24 hr Category Date Time Status Lumbar Spine 2 or 3V [CR] Stat Exams 01/11/20 12:24 Taken Sacroiliac Joint Min 3V [CR] Stat Exams 01/11/20 12:25 Taken Meds: Medications Discontinued Medications Generic Name Dose Route Start Last Admin Trade Name Freq PRN Reason Stop Dose Admin Cyclobenzaprine HCl 10 mg 01/11/20 12:25 01/11/20 12:30 Flexeril PO 01/11/20 12:26 10 mg ONETIME ONE Administration Ketorolac Tromethamine 60 mg 01/11/20 12:25 01/11/20 12:30 Toradol IM 01/11/20 12:26 60 mg ONETIME ONE Administration - Re-Assessments/Exams Free Text/Narrative Re-Assessment/Exam: 01/11/20 13:25 X-ray of the sacrum and low back were negative for any acute findings. Patient is feeling much better after the Toradol and Flexeril. We will discharge her home with a prescription for Naprosyn and Flexeril. I will give her a note off from work on Wednesday. Discussed with her that if she is not feeling better by Wednesday, she should call and schedule appointment with her primary care provider for further evaluation. If she needs further time off of work after Wednesday, her primary care provider would be able to assist her with that. Discharge instructions as documented. Departure - Departure Time of Disposition: 13:25 Disposition: Home, Self-Care 01 Condition: Good Clinical Impression: Low back strain Qualifiers: Encounter type: initial encounter Qualified Code(s): S39.012A - Strain of muscle, fascia and tendon of lower back, initial encounter - Discharge Information *PRESCRIPTION DRUG MONITORING PROGRAM REVIEWED*: No *COPY OF PRESCRIPTION DRUG MONITORING REPORT IN PATIENT EMA: No Prescriptions: Naproxen [Naprosyn] 500 mg PO Q12HR #10 tab Cyclobenzaprine [Flexeril] 5 mg PO Q8H PRN #10 tab PRN Reason: Muscle Spasm Instructions: Lumbar Sprain Referrals: Storm Bateman MD [Primary Care Provider] - Forms: ED Department Discharge Additional Instructions: You were seen in the emergency department today for low back pain that occurred in the process of making a bed at work. X-rays were completed of your lumbar spine and sacroiliac joint and found to be normal. While in the ER you received a shot of Toradol, as well as Flexeril which you state did improve your symptoms significantly. A prescription for Naprosyn and Flexeril has been sent to [facility] on [address]. Use these medications as prescribed. Recommend that you avoid heavy lifting over the weekend. You may apply heat to the area of discomfort. A note has been provided off from work for you on Wednesday. If you are still having significant pain on Wednesday, recommend that you call to schedule an appointment with your primary care provider for further evaluation. Return to the ER as needed. Sepsis Event Note - Evaluation Sepsis Screening Result: No Definite Risk - Focused Exam Vital Signs: Vital Signs Temp Pulse Resp BP Pulse Ox 01/11/20 12:11 97.9 F 97 20 116/71 92 L Date Exam was Performed: 01/11/20 Time Exam was Performed: 13:24 - My Orders Last 24 Hours: My Active Orders 01/11/20 12:24 Lumbar Spine 2 or 3V [CR] Stat 01/11/20 12:25 Sacroiliac Joint Min 3V [CR] Stat - Assessment/Plan Last 24 Hours: My Active Orders 01/11/20 12:24 Lumbar Spine 2 or 3V [CR] Stat 01/11/20 12:25 Sacroiliac Joint Min 3V [CR] Stat
[2020-01-11] MEDS: Ketorolac 60 MG/2 ML SDV IM ONE ×2 (12:30→12:35)
--- NOTE | 2020-01-11 13:32 | CR ---
Sacroiliac joints: Frontal view of the sacroiliac joints were obtained as well as bilateral oblique views. Joint spaces within the sacroiliac joints are preserved. No sclerosis or osteolysis is seen around the sacroiliac joints. Sacral foramina appear to be patent. Nothing acute is seen. Impression: 1. No abnormality is appreciated on sacroiliac joint exam. Diagnostic code #1 This report was dictated in MDT
--- NOTE | 2020-01-11 13:32 | CR ---
Lumbar spine: AP, lateral and coned-down lateral views centered to the lumbosacral junction were obtained. Comparison: No prior lumbar spine imaging is available. Vertebral body heights and disc spaces are fairly well preserved within the lumbar spine. Very minimal scattered anterior endplate osteophytes are seen. Pedicles are intact. Visualized transverse and spinous processes are intact. Sacroiliac joints are unremarkable. Surgical clips are seen from prior cholecystectomy. Impression: 1. Minimal degenerative change. Diagnostic code #2 This report was dictated in MDT
== END 2020-01-11 13:59 | disposition home or self-care (01) ==
LOC: JD.ED 12:03
DX: S39.012A Strain of muscle, fascia and tendon of lower back, initial encounter (principal); I10 Essential (primary) hypertension; Z88.8 Allergy status to other drugs, medicaments and biological substances; Z88.0 Allergy status to penicillin; Z88.2 Allergy status to sulfonamides; Z79.899 Other long term (current) drug therapy; X50.9XXA Other and unspecified overexertion or strenuous movements or postures, initial encounter; Y99.0 Civilian activity done for income or pay
CPT/HCPCS: 72100; 72202; 96372; 99283; A9270; J1885

== ENCOUNTER 2020-05-07 06:26 | Emergency (ER) | payer MEDICAID ==
[2020-05-07 06:44] VITALS: BP 125/80
--- NOTE | 2020-05-07 07:01 | EDM.PDOC ---
ED HPI GENERAL MEDICAL PROBLEM - General Chief Complaint: Headache Stated Complaint: MIGRAINE/COUGH Time Seen by Provider: 05/07/20 06:59 Source of Information: Reports: Patient, RN Notes Reviewed - History of Present Illness INITIAL COMMENTS - FREE TEXT/NARRATIVE: 55 yr old female with onset of cough yesterday. Last evening developed throbbing Roach similar to prior migraine Roach's she has had. She has had some chills, no definite fever. Nausea but no vomiting. 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 - Related Data Allergies Allergy/AdvReac Type Severity Reaction Status Date / Time Penicillins Allergy Severe Rash Verified 01/11/20 12:14 propoxyphene Allergy Severe Hives Verified 01/11/20 12:14 [From Darvocet-N] propoxyphene napsylate Allergy Severe Rash Verified 01/11/20 12:14 [From Darvocet-N] Sulfa (Sulfonamide Allergy Severe Rash Verified 01/11/20 12:14 Antibiotics) sulfamethoxazole Allergy Severe Rash Verified 01/11/20 12:14 [From Bactrim] trimethoprim [From Bactrim] Allergy Severe Rash Verified 01/11/20 12:14 Home Meds: Home Meds lisinopriL [Prinivil] 10 mg PO DAILY 06/27/19 [History] Past Medical History HEENT History: Reports: Impaired Vision Other HEENT History: Wears eyeglasses. 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: Musculoskeletal History: Reports: Back Pain, Chronic Neurological History: Reports: Migraines Psychiatric History: Reports: Depression - Past Surgical History Female Surgical History: Reports: Hysterectomy Social & Family History - Family History Family Medical History: Noncontributory HEENT: Reports: None Cardiac: Reports: None Respiratory: Reports: None GI: Reports: None : Reports: None - Tobacco Use Smoking Status *Q: Current Every Day Smoker Years of Tobacco use: 30 Packs/Tins Daily: 0.2 - Caffeine Use Caffeine Use: Reports: Coffee - Living Situation & Occupation Living situation: Reports: Single Occupation: Employed ED ROS GENERAL - Review of Systems Review Of Systems: See Below Constitutional: Reports: Chills. Denies: Fever HEENT: Denies: Rhinitis, Throat Pain Respiratory: Reports: Cough. Denies: Shortness of Breath, Sputum Cardiovascular: Denies: Chest Pain GI/Abdominal: Reports: Nausea. Denies: Abdominal Pain, Vomiting Musculoskeletal: Reports: Other (generalized achiness) Skin: Denies: Rash Neurological: Reports: Dizziness, Headache ED EXAM, GENERAL - Physical Exam Exam: See Below General Appearance: Alert, Moderate Distress Eye Exam: Bilateral Eye: PERRL Head: Atraumatic Neck: Supple Respiratory/Chest: No Respiratory Distress, Lungs Clear, Normal Breath Sounds Cardiovascular: Tachycardia GI/Abdominal: Non-Tender Extremities: Normal Inspection Neurological: Alert, Oriented, No Motor/Sensory Deficits Skin Exam: Warm, Dry Course - Vital Signs Last Recorded V/S: Last Vital Signs Temp 98.6 F 05/07/20 06:40 Pulse 101 H 05/07/20 08:09 Resp 16 05/07/20 08:09 BP 125/80 05/07/20 06:40 Pulse Ox 100 05/07/20 08:09 - Orders/Labs/Meds Orders: Active Orders 24 hr Category Date Time Status CORONAVIRUS COVID-19 PCR PHL Stat Lab 05/07/20 09:46 Received Peripheral IV Insertion Adult [OM.PC] Stat Oth 05/07/20 07:20 Ordered Labs: Laboratory Tests 05/07/20 05/07/20 Range/Units 07:55 07:55 WBC 4.72 (3.98-10.04) K/mm3 RBC 4.85 (3.98-5.22) M/mm3 Hgb 13.9 D (11.2-15.7) gm/dl Hct 42.4 (34.1-44.9) % MCV 87.4 (79.4-94.8) fl MCH 28.7 (25.6-32.2) pg MCHC 32.8 (32.2-35.5) g/dl RDW Std Deviation 42.3 (36.4-46.3) fL Plt Count 200 D (182-369) K/mm3 MPV 11.3 (9.4-12.3) fl Neut % (Auto) 67.1 (34.0-71.1) % Lymph % (Auto) 19.3 (19.3-51.7) % [place] % (Auto) 11.7 (4.7-12.5) % Eos % (Auto) 1.3 (0.7-5.8) Baso % (Auto) 0.4 (0.1-1.2) % Neut # (Auto) 3.17 (1.56-6.13) K/mm3 Lymph # (Auto) 0.91 L (1.18-3.74) K/mm3 [place] # (Auto) 0.55 H (0.24-0.36) K/mm3 Eos # (Auto) 0.06 (0.04-0.36) K/mm3 Baso # (Auto) 0.02 (0.01-0.08) K/mm3 C-Reactive Protein 1.2 H* (<1.0) mg/dL Meds: Medications Discontinued Medications Generic Name Dose Route Start Last Admin Trade Name Freq PRN Reason Stop Dose Admin Diphenhydramine HCl 25 mg 05/07/20 07:20 05/07/20 08:04 Benadryl IVPUSH 05/07/20 07:21 25 mg ONETIME ONE Administration Sodium Chloride 1,000 mls @ 150 mls/hr 05/07/20 07:30 05/07/20 07:58 Normal Saline IV 150 mls/hr ASDIRECTED LADONNA Administration Ketorolac Tromethamine 30 mg 05/07/20 07:30 05/07/20 08:03 Toradol IVPUSH 30 mg ONETIME LADONNA Administration Metoclopramide HCl 5 mg 05/07/20 07:20 05/07/20 07:59 Reglan IVPUSH 05/07/20 07:21 5 mg ONETIME ONE Administration Sodium Chloride 10 ml 05/07/20 07:20 05/07/20 07:58 Saline Flush FLUSH 10 ml ASDIRECTED PRN Administration Keep Vein Open - Re-Assessments/Exams Free Text/Narrative Re-Assessment/Exam: 05/08/20 08:08 Feeling better after IV fluid and meds. 05/08/20 08:08. CXR nl, discharge instr. as documented. Departure - Departure Time of Disposition: 09:46 Disposition: Home, Self-Care 01 Condition: Fair Clinical Impression: Bronchitis, Headache - Discharge Information Instructions: Upper Respiratory Infection, Adult, [id number] Referrals: Simona Bateman PA-C [Primary Care Provider] - Forms: ED Department Discharge, ED Return to Work/School Form Additional Instructions: rest, a covid screen has been done. Self Isolate until we call you results, usually in about 3 days. Continue current medications. Follow up clinic as needed. Sepsis Event Note (ED) - Evaluation Sepsis Screening Result: No Definite Risk - My Orders Last 24 Hours: My Active Orders 05/07/20 07:20 Peripheral IV Insertion Adult [OM.PC] Stat 05/07/20 09:46 CORONAVIRUS COVID-19 PCR PHL Stat - Assessment/Plan Last 24 Hours: My Active Orders 05/07/20 07:20 Peripheral IV Insertion Adult [OM.PC] Stat 05/07/20 09:46 CORONAVIRUS COVID-19 PCR PHL Stat
[2020-05-07] MEDS ORDERED: Sodium Chloride 0.9% 10 ML Syringe FLUSH PRN (07:20)
[2020-05-07] MEDS ORDERED: diphenhydrAMINE 50 MG/ML SDV IVPUSH ONE (07:20)
[2020-05-07] MEDS ORDERED: Metoclopramide 10 MG/2 ML SDV IVPUSH ONE (07:20)
[2020-05-07] MEDS ORDERED: Sodium Chloride 0.9% 1,000 ML IV SCH (07:30)
[2020-05-07] MEDS ORDERED: Ketorolac 30 MG/ML SDV IVPUSH SCH (07:30)
--- NOTE | 2020-05-07 07:34 | CR ---
Chest: Portable view of the chest was obtained. Comparison: Prior chest x-ray of 02/08/17. Heart size and mediastinum are normal. Lungs are clear with no acute parenchymal change. Nodular density within the right upper lung is seen most likely representing scarring as this finding is stable from previous exam. Bony structures are grossly intact. Impression: 1. Nothing acute is seen on frontal chest x-ray. Diagnostic code #2 This report was dictated in MDT
[2020-05-07 08:10] VITALS: PULSE 101
== END 2020-05-07 10:17 | disposition home or self-care (01) ==
LOC: JD.ED 06:26
DX: J40 Bronchitis, not specified as acute or chronic (principal); R51 Headache; I10 Essential (primary) hypertension; F17.210 Nicotine dependence, cigarettes, uncomplicated; Z88.0 Allergy status to penicillin; Z88.2 Allergy status to sulfonamides; Z79.899 Other long term (current) drug therapy; Z20.828 Contact with and (suspected) exposure to other viral communicable diseases; Z88.6 Allergy status to analgesic agent; Z88.1 Allergy status to other antibiotic agents
CPT/HCPCS: 36415; 71045; 85025; 86140; 87635; 96361; 96374; 96375; 99284; J1200; J1885; J2765; J7030; 99283; U0002